=== PATIENT | male | born 1990 | race Caucasian/White ===

== ENCOUNTER 2022-09-14 09:30 | Outpatient (RCR) | payer OTHER, SELFPAY ==
[2022-08-27 11:47] VITALS: BP 130/84; PULSE 80; RESP 14; TEMP 36.6
[2022-08-27 11:49] VITALS: BMI 33.3
--- NOTE | 2022-08-27 12:34 | HO.PS.ADMBH ---
[facility] Date of Service: 08/27/22 Chief Complaint: schizoaffective d/o Sources of Information: patient interviewed, chart reviewed and crisis/core team assessment reviewed [facility] Medical Problems Affecting Mental Status: No Narrative: Following information obtained via patient interview, initial clinician integrated assessment, and chart review. I met with patient this morning. Patient is 31-year-old single male, self-referred on advice of his therapist to [facility], due to having mood instability with mixed states, increased depression and anxiety, chronic paranoid thoughts with auditory hallucinations. Patient is well known to [facility] staff, as he has been here multiple times since age 19. Patient has treatment resistant schizoaffective disorder, has had command hallucinations in the past telling him to stop taking his medications. He describes currently experiencing a mixed episode, feeling slightly manic. Reports that he recently stopped taking olanzapine, as he was concerned about weight gain. He states that since this time his symptoms have worsened, with increased paranoia, auditory hallucinations, believing people are talking about him, racing thoughts, poor sleep. Denies any SI, HI, reports feeling safe. Patient reports he also terminated his relationship with his psychiatrist at [facility], and has an upcoming appointment next week scheduled with a new psychiatrist through [facility]. Patient has a history of non adherence to medications, with subsequent decompensation, which has led to multiple hospitalizations. Three or 4 years ago he became acutely psychotic, and was hospitalized at [place] for 4 months, and [facility] for 6 months. He then resided in a long-term in [place] for 3 years. In spring of this year, he decided he no longer wanted to live in a long-term, and that he wanted to be more independent, and get a job. He moved to his grandparents residence in [place]. His grandparents have declining health, and they require care, which he helps his mother to provide at times. He was offered VNA services for medication management upon discharge from the long-term, which he declined. He has struggled to maintain current medication regimen. He states that several weeks ago he was feeling manic, and went [place] late at night, and got into a stranger's car. He states that he also relapsed briefly with alcohol after several years sobriety at that time. He is deeply concerned, and he states that he wants to get help now before he continues to decline, as he wants to avoid inpatient hospitalization. Past Psychiatric History: Medication trials: Multiple medications trials, including claws a real, Geodon, propanolol, olanzapine, perphenazine, lithium. Patient has [facility] case monitor, Rema Anderson. Multiple hospitalizations, respite, [facility], sober house, long-term. Has upcoming appointment with new psychiatric provider 09/02/22 at [facility] Castillo, Donna Regalado CNP, at [facility]. Therapist: Marion Mcnally [facility] Medical Evaluation Reviewed: Yes [facility] Medical History No known health problems Family History: Mother and maternal grandmother: History of depression. Father: Anxiety Grandmother: Parkinson's Grandfather: Dementia Social History: Raised by both parents. Has several older siblings. Graduated high school, 1 year college. Currently resides with grandparents, has frequent contact with mother. Unemployed Has [facility] case involvement. Substance History: Alcohol, methamphetamine, LSD since college. Has been sober for several years, recent relapse of 1 drink several weeks ago. Attends , has a sponsor. Nicotine use, former 2 pack per day smoker, has weaned down to current 1 pack per day. Diagnostics Vital Signs (24Hr): Vital Signs - 24 hr 08/27/22 11:47 Temperature 97.8 F Pulse Rate 80 Respiratory Rate 14 Blood Pressure 130/84 BMI result Body Mass Index 33.3 Meds/Allergies Meds Home Medications Medication Instructions Recorded Confirmed Type aripiprazole 30 mg tablet 30 mg PO DAILY 08/27/22 08/27/22 History benztropine 1 mg tablet 1 mg PO BID 08/27/22 08/27/22 History clonazepam 1 mg tablet 1 mg PO TID 08/27/22 08/27/22 History fluoxetine 40 mg capsule 40 mg PO DAILY 08/27/22 08/27/22 History lurasidone 120 mg tablet (Latuda) 120 mg PO DAILY 08/27/22 08/27/22 History Allergies Allergies Allergy/AdvReac Type Severity Reaction Status Date / Time quetiapine [From SEROQUEL] Allergy Unknown throat Verified 08/27/22 11:47 closes per patient Mental Status Exam Mental Status Exam Narrative: Well-developed, well-nourished male, in NAD. Restless, anxious, expansive mood and affect. No SI, reports AH, paranoia that others are talking about him in a derogatory manner. Patient Appearance: Appropriate Patient Orientation: Person, Place, Time and Situation Level of Consciousness: Appropriate and Restless Patient Behavior: Appropriate, Cooperative and Good Eye Contact Mood Description: Anxious and Apprehensive Affect Description: Anxious and Apprehensive Patient Cognition Impaired: No Ability to Follow Directions: Good Speech Pattern: Clear and Appropriate Memory Description: Intact Hallucinations: Auditory Delusions: Paranoid Ideation (Believes people are talking about him, mentions people in this office, & in group.) Thought Process: Racing and Distracted Thought Content: positive for Racing and positive for Obsessional Thoughts (Obsessive thoughts regarding medication use and weight gain.) Depressive Symptoms: Increased Anxiety, Increased Irritability, Difficulty Sleeping, Loss of Int. in Activity, Hopelessness, Unhappiness, Increased Fatigue and Difficulty Concentrating Abnormal Motor Activity Signs and Symptoms: Restlessness Judgement: Fair Assessment & Plan Assessment & Plan (1) Schizoaffective disorder, bipolar type: Status: Acute Code(s): F25.0 - Schizoaffective disorder, bipolar type Assessment and Plan: Patient is self-referred to program due to decompensation, increased paranoia, auditory hallucinations, feeling manic. Patient reports recently he stopped taking his olanzapine, for fear of gaining weight. Since that time he has noticed an increase in symptoms. Patient also terminated relationship with prescriber through [facility], and has an upcoming appointment with provider through [facility] in [place]. Patient was cooperative, able to clearly state his concerns. Stated several times ?I can not end up back in the [facility] ?. Reports difficulty falling asleep. Had refused VNA services when he left his long-term residence in spring. Had recently relapsed with 1 drink after long-term sobriety with alcohol. Has maintained sobriety since that 1 drink. He would like to participate in the COD groups while here. Patient concerned, as he wishes to restart a medication in order to prevent further decompensation, which inevitably would leave to hospitalization, as it has multiple times in the past. Reports he had taken Haldol in past with positive affect. Recently had a short-term script for Haldol 5 mg b.i.d.. States that he has taken larger amounts of Haldol, including 10 mg t.i.d.. Is willing to try Haldol 5 mg t.i.d. at this time in addition to his several other antipsychotic medications. Patient reports that he feels safe at this time, no SI. He does acknowledge auditory hallucinations, along with paranoid thoughts that others are talking about him. Reports that when he was walking during morning break from program, people in the parking lot were talking and he thought they were speaking about him, how ?he is a sick jazmin ?. We discussed safety measures, including a potential crisis eval if he further decompensates, which she was agreeable to. He also has crisis phone number readily available, and states that he will call if needed. Discussed importance of taking prescribed medications daily, using and medication reminder, and VNA referral to assist with medication management. He stated he will think about of visiting nurse, but does not want to commit at this time. (2) Alcohol dependence, uncomplicated: Status: Acute Code(s): F10.20 - Alcohol dependence, uncomplicated Plan 1. Continue with current [facility] plan of care. 2. Start Haldol 5 mg t.i.d.. 3. Continue with other medications as currently prescribed by outpatient providers. 4. Follow-up as per protocol. Patient educated on: diagnosis, medication risk/benefits, substance abuse and therapeutic strategies Informed Consent: understands Reason for continued partial hosp. stay Substantial Risk for: harm to self, harm to others, inability to function, rapid decompensation and med/psych decompensation Certification I certify that partial hospital treatment is medically necessary due to the symptoms and problems resulting from the patient's mental illness and the failure to treat the patient at the partial hospital level of care would likely result in the patient requiring inpatient psychiatric care which could not be prevented at a less intensive level of care.
--- NOTE | 2022-08-27 12:50 | PC.ADMIT ---
Admit to [facility] on 08/27/2022. Patient self referred related to increased elena, mood instability both anxiety and depression, paranoid thoughts and auditory hallucinations. Patient reports he hears voices laughing at him denies command hallucinations. Patient is 31 years old, single lives with grandparents. Patient dx is Schizoaffective disorder with first episode at age 20 during his freshman year at college. Four years ago patient had a major psychotic episode and was inpatient at [facility] for 4 months and [facility] for 6 months. Patient then was sent to live in a [facility] psychiatric usp where he lived for 3 years. Patient recently stopped Zyprexa himself due to weight gain which he attributes to the medication. Patient seen by [facility] OPERATOR HELPER today for medication appointment. Patient was started on Haldol 5mg oral 3x daily x one week. Patient currently takes Cogentin scheduled daily. Patient will be scheduled a f/u medication appointment to evaluate compliance with scheduled Haldol and effectiveness. Med teaching done on use, dose, frequency, side effects when stopping medications by self. Patient states understanding. Patient cooperative during nursing assessment, stated he was tired, denied AH during nursing visit. Responses delayed at times during visit. Patient reports anxiety and depression, states no SI no plan, no intent. Patient denies substance use. Patient used methamphetamine intermittently in college, denies use since college. Patient has history of alcohol abuse. Patient reports he has been sober for one year with one relapse of one drink a couple weeks ago. Patient goes to AA meetings. Patient denies SI with no plan and no intent, denies he would harm himself or anyone else. Patient will leave program before the 1pm meeting due to fatigue. Medication reconciliation done with patient and pharmacy. + Admission to [facility] on 08/27/2022. Patient self referred d
--- NOTE | 2022-09-01 13:48 | HO.PHPPROGNO ---
Subjective Subjective Date of Service: 09/01/22 Reason For Visit: schizoaffective d/o Medical Problems Affecting Mental Status: No Interim History: Reports continued, increased paranoia, believing 'everyone is talking about me Increased AH, describes as 'scary, shuffling upstairs, a very very deep voice Denies SI/HI, says feels safe Grandfather hospitalized, going to hospice. Patient describes increased stress. r/t this Reports haldol 5mg TID was not effective in sx management Took olanzapine 20mg last evening after stopping it 3 to 4 weeks ago, with some effect. Binged ate last night, says related to the olanzapine Medication Compliance: Intermittent Side effects from medications: Yes (Reports binge eating with olanzapine) Attending Groups: Yes Review of Systems Acute medical concerns: No Medical Review of Systems: unchanged Review of Systems Review of Systems Yes all other systems are reviewed and are negative Constitutional: Reports no additional constitutional complaints Diagnostics Vital Signs (24Hr): BMI result Body Mass Index 33.3 Assessment & Plan Assessment & Plan (1) Schizoaffective disorder, bipolar type: Status: Acute Code(s): F25.0 - Schizoaffective disorder, bipolar type Assessment and Plan: Reports continued, increased paranoia, believing 'everyone is talking about me . Eight she is afraid to walk out of his house, as he believes the neighbor is calling him names. Increased AH, describes as 'scary, shuffling upstairs, a very very deep voice . States they are not command in nature. Denies SI/HI, says feels safe. Patient encouraged to notify us if that some point he feels unsafe, and to utilize crisis number. Grandfather hospitalized, going to hospice. Patient describes increased stress r/t this. Reports haldol 5mg TID was not effective in sx management. States that when he previously had been taking Haldol 10 mg t.i.d., he felt his auditory hallucinations and paranoia were much better managed. Took olanzapine 20mg last evening after stopping it 3 to 4 weeks ago, with some effect. Reports that he feels a little better this morning, but that he is extremely concerned about the weight gain of olanzapine and does wish to continue. Binged ate last night, says related to the olanzapine. Patient has an appointment tomorrow with new outpatient psychiatrist. We discussed in the meantime of stopping olanzapine altogether, and continue with Haldol, increased dose of 10 mg t.i.d.. One-week supply sent to pharmacy. Patient already receives Latuda and Abilify daily. We discussed considering long-acting injectables for at least 1 of the antipsychotics, as it may help keep a steady level in his blood stream. He stated he would think about this. Discussed medication adherence. Patient states he is taking all medications as currently prescribed. Patient reports increased anxiety, requests increased dose of Klonopin. Reports he has been on the same dose of Klonopin for the past 3 years. Patient was advised to take Klonopin as directed, with the addition today of 1 mg as a p.r.n.. He also was encouraged to discuss this when he meets new psychiatrist tomorrow. (2) Alcohol dependence, uncomplicated: Status: Acute Code(s): F10.20 - Alcohol dependence, uncomplicated Assessment and Plan: Remains abstinent from alcohol, no concerns at this time. Has support network in place. Plan 1. Continue with current [facility] plan of care. 2. Patient agreeable to not take olanzapine, as he will be given script today for Haldol. 3. Haldol increased to 10 mg t.i.d., 1 week supply sent. 4. Patient to utilize 1 mg Klonopin as a p.r.n. for today, and to discuss further with his outpatient psychiatrist, home he will meet for the 1st time tomorrow. 5. Follow-up as per protocol. Patient educated on: diagnosis, medication risk/benefits and therapeutic strategies Informed Consent: understands Reason for contiued partial hosp. stay Substantial Risk for: inability to function, rapid decompensation and med/psych decompensation Certification I certify that partial hospital treatment is medically necessary due to the symptoms and problems resulting from the patient's mental illness and the failure to treat the patient at the partial hospital level of care would likely result in the patient requiring inpatient psychiatric care which could not be prevented at a less intensive level of care. I spent minutes with the patient and/or on the patient floor today, greater than?50% of which was spent counseling/coordinating care. Discharge Plan Discharge Attending provider: Yair Serrano Medications: New haloperidol 10 mg tablet 10 mg PO TID Qty: 21 0RF Discontinued haloperidol [Haldol] 5 mg Tablet 5 mg PO BID No Action clonazepam 1 mg Tablet 1 mg PO TID benztropine [Cogentin] 1 mg Tablet 1 mg PO BID Latuda 120 mg Tablet 120 mg PO DAILY Rx Instructions: must administer with food (at least 350 calories) aripiprazole 30 mg Tablet 30 mg PO DAILY fluoxetine 40 mg Capsule 40 mg PO DAILY
--- NOTE | 2022-09-02 14:16 | PC.NURSE ---
Case opened in treatment team
--- NOTE | 2022-09-03 09:23 | PC.NURSE ---
I spoke with the client this morning he states that he couldn't attend due to stomach issues. He states that he will be in on Tuesday.
--- NOTE | 2022-09-06 15:21 | P.PNPSP_ITS ---
Subjective Subjective Date of Service: 09/06/22 Reason For Visit: schizoaffective d/o Medical Problems Affecting Mental Status: No Interim History: Reports mood has had high highs, low lows . Says anxious. Believes mood lability is related to stopping olanzapine. Haldol has helped with voices, but would like to return to olanzapine, asking for Lybalvi. No SI/HI, no safety concerns Cont with AH, but more managable. Medication Compliance: Intermittent Side effects from medications: No Attending Groups: Yes Review of Systems Acute medical concerns: No Medical Review of Systems: unchanged Review of Systems Review of Systems Yes all other systems are reviewed and are negative Constitutional: Reports no additional constitutional complaints Mental Status Exam Mental Status Exam Narrative: NAD. Patient Appearance: Appropriate Patient Orientation: Person, Place, Time and Situation Level of Consciousness: Appropriate and Restless Patient Behavior: Appropriate, Cooperative and Good Eye Contact Mood Description: Anxious, Labile and Apprehensive Affect Description: Anxious Patient Cognition Impaired: No Ability to Follow Directions: Good Speech Pattern: Clear and Appropriate Memory Description: Intact Hallucinations: Auditory Delusions: Paranoid Ideation (Believes people are talking about him) Thought Process: Racing and Distracted Thought Content: positive for Racing and positive for Obsessional Thoughts (Obsessive thoughts regarding medication use and weight gain.) Depressive Symptoms: Increased Anxiety, Increased Irritability, Difficulty Sleeping, Loss of Int. in Activity, Hopelessness, Unhappiness, Increased Fatigue and Difficulty Concentrating Abnormal Motor Activity Signs and Symptoms: Restlessness Judgement: Fair Diagnostics Vital Signs (24Hr): BMI result Body Mass Index 33.3 Assessment & Plan Assessment & Plan (1) Schizoaffective disorder, bipolar type: Status: Acute Code(s): F25.0 - Schizoaffective disorder, bipolar type Assessment and Plan: Patient reports increased mood lability. Reports he realizes now that he does need olanzapine, even though he does not like the weight gain. Has taken Lybalvi in the past, and would like to take this in place of the Haldol. A med history search reveals he had taken lobe all the several months ago. Reports that Haldol has been helpful regarding auditory hallucinations, but would like to stop it and switch back over to Lybalvi. Education discussed, including benefits verses disadvantages, side effects, alternatives to milana tment. No SI, no safety concerns. Appointment with new provider has been rescheduled, appointment with new psychiatrist is September 16 at 09:00. Has been taking only scheduled Klonopin. Patient has been advised he could take 1 extra dose 1 day only by this group underwriter, patient was reminded that this is not a permanent order but was only a 1 day order. He states he understands. Patient reports he has been finding it difficult to stay in [facility] throughout day, gets restless and anxious towards end of group. Has also been trying to stop smoking nicotine. Has used medications such as Nicorette gum, Nicoderm patch. Not interested at this time in nicotine replacement therapy (2) Alcohol dependence, uncomplicated: Status: Acute Code(s): F10.20 - Alcohol dependence, uncomplicated Assessment and Plan: Patient remains abstinent from alcohol. Utilizing 12 step program, has a sponsor. Attending online zoom meetings. Plan 1. Continue with current [facility] plan of care. 2. Discontinue Haldol. 3. Start Lybalvi 10-10 daily. 4. Follow-up as per protocol. Patient educated on: diagnosis, medication risk/benefits, substance abuse and therapeutic strategies Informed Consent: understands Reason for contiued partial hosp. stay Substantial Risk for: inability to function, rapid decompensation and med/psych decompensation Certification I certify that partial hospital treatment is medically necessary due to the symptoms and problems resulting from the patient's mental illness and the failure to treat the patient at the partial hospital level of care would likely result in the patient requiring inpatient psychiatric care which could not be prevented at a less intensive level of care. I spent minutes with the patient and/or on the patient floor today, greater than?50% of which was spent counseling/coordinating care. Discharge Plan Discharge Attending provider: Yair Serrano Additional Instructions: Marion Mcnally [facility] Medications: New Lybalvi 10-10 mg tablet 1 tab PO DAILY Qty: 30 0RF Discontinued haloperidol [Haldol] 5 mg Tablet 5 mg PO BID No Action clonazepam 1 mg Tablet 1 mg PO TID benztropine [Cogentin] 1 mg Tablet 1 mg PO BID Latuda 120 mg Tablet 120 mg PO DAILY Rx Instructions: must administer with food (at least 350 calories) aripiprazole 30 mg Tablet 30 mg PO DAILY fluoxetine 40 mg Capsule 40 mg PO DAILY Stand Alone Forms: Patient Portal Discharge page
--- NOTE | 2022-09-08 15:50 | PC.NURSE ---
Ori called and stated he went to [facility] and he was struggling with AH as there was a crowd of people in the store. Patient wanted Lybalvi increased from 10-10 to 10-20 mg as it has helped with AH. Stated he has been on 10-20 in the past. I told him I would speak to the provider. I called patient back and told him I did not speak to the provider as of yet and asked if he would like to see the provider tomorrow morning and he agreed. I asked Herbie if he had thoughts to harm himself or anyone else and he stated he did not. He stated he was safe. Plans on playing video games for the remainder of the night and going to bed early. Stated the AH are better when he is not in a crowded area. Jonelle Fajardo NP aware.
--- NOTE | 2022-09-08 16:03 | PC.NURSE ---
Prescriber Jonelle Fajardo NP notifed me and stated patient can stop the Lybalvi and take 20 mg of Zyprexa daily which he was originally on. Called patient to update him however he did not answer his phone. Will have patient see prescriber in the morning.
--- NOTE | 2022-09-09 08:42 | P.PNPSP_ITS ---
Subjective Subjective Date of Service: 09/09/22 Reason For Visit: schizoaffective d/o Interim History: Spoke with patient on phone. He reports increased paranoia, increased auditory hallucinations. Medication Compliance: Intermittent Side effects from medications: No Attending Groups: Yes Review of Systems Acute medical concerns: No Medical Review of Systems: unchanged Mental Status Exam Mental Status Exam Narrative: Spoke with patient on phone. No SI. Mood Description: Anxious Ability to Follow Directions: Good Speech Pattern: Clear and Appropriate Hallucinations: Auditory Delusions: Paranoid Ideation Depressive Symptoms: Increased Anxiety Judgement: Fair Diagnostics Vital Signs (24Hr): BMI result Body Mass Index 33.3 Assessment & Plan Assessment & Plan (1) Schizoaffective disorder, bipolar type: Status: Acute Code(s): F25.0 - Schizoaffective disorder, bipolar type Assessment and Plan: patient reports escalated paranoia and auditory hallucinations. Too paranoid at this time to come to group. He sees new psychiatrist in one week. No SI, feels safe. Med changed back to olanzapine 20mg. Plan 1. Patient to stop the olanzapine-samidorphan 10-10mg. 2. Resume the olanzapine 20mg daily. 3. Continue all other medications as currently prescribed. 4. Patient to return to program tomorrow. Patient educated on: diagnosis, medication risk/benefits and therapeutic strategies Informed Consent: understands Reason for contiued partial hosp. stay Substantial Risk for: inability to function, rapid decompensation and med/psych decompensation Certification I certify that partial hospital treatment is medically necessary due to the symptoms and problems resulting from the patient's mental illness and the failure to treat the patient at the partial hospital level of care would likely result in the patient requiring inpatient psychiatric care which could not be prevented at a less intensive level of care. I spent minutes with the patient and/or on the patient floor today, greater than?50% of which was spent counseling/coordinating care. Discharge Plan Discharge Attending provider: Yair Serrano Additional Instructions: Marion Mcnally [facility] Medications: New Lybalvi 10-10 mg tablet 1 tab PO DAILY Qty: 30 0RF Discontinued haloperidol [Haldol] 5 mg Tablet 5 mg PO BID No Action clonazepam 1 mg Tablet 1 mg PO TID benztropine [Cogentin] 1 mg Tablet 1 mg PO BID Latuda 120 mg Tablet 120 mg PO DAILY Rx Instructions: must administer with food (at least 350 calories) aripiprazole 30 mg Tablet 30 mg PO DAILY fluoxetine 40 mg Capsule 40 mg PO DAILY Stand Alone Forms: Patient Portal Discharge page Telehealth Telehealth Location of provider rendering services: practice address Location of patient: address on file Patient Identification confirmed using: Name, : Yes Telehealth method: voice only Patient verbally consented to treatment: Yes Patient verbally consented to billing insurance company: Yes Patient informed of any privacy concerns related to visit: Yes Minutes spent on Phone/Video with Pt.: 10
--- NOTE | 2022-09-10 08:17 | PC.NURSE ---
Patient called and left a voicemail stating he started Zyprexa last night and is waiting for it to get into his system. Plans on staying with his grandmother all day today and come in on Tuesday. PHP team is aware.
--- NOTE | 2022-09-10 08:38 | HO.PHPIOP ---
Ori called out. He is experiencing symptoms, he just took his medication . He will be here Tuesday.
--- NOTE | 2022-09-14 12:19 | HO.PHPPROGNO ---
Subjective Subjective Date of Service: 09/14/22 Reason For Visit: schizoaffective d/o Medical Problems Affecting Mental Status: No Medication Compliance: Intermittent Side effects from medications: No Attending Groups: Yes Review of Systems Acute medical concerns: No Medical Review of Systems: unchanged Review of Systems Review of Systems Yes all other systems are reviewed and are negative Constitutional: Reports no additional constitutional complaints Mental Status Exam Mental Status Exam Narrative: NAD. Normal gait, posture. No tics/tremors. No EPS noted. Patient Appearance: Appropriate Patient Orientation: Person, Place, Time and Situation Level of Consciousness: Appropriate Patient Behavior: Appropriate and Cooperative Mood Description: Anxious Affect Description: Anxious Ability to Follow Directions: Good Speech Pattern: Clear and Appropriate Memory Description: Intact Hallucinations: Auditory ( a deep man's voice ) Delusions: Paranoid Ideation (others are talking aobut him) Perceptual Disturbances: Hallucinations Thought Process: Intact Thought Content: positive for Obsessional Thoughts and positive for Preoccupation Depressive Symptoms: Increased Anxiety Judgement: Fair Diagnostics Vital Signs (24Hr): BMI result Body Mass Index 33.3 Assessment & Plan Assessment & Plan (1) Schizoaffective disorder, bipolar type: Status: Acute Code(s): F25.0 - Schizoaffective disorder, bipolar type Assessment and Plan: Patient reports he is anxious, has been struggling with increased auditory hallucinations, paranoia. Began taking old supply haldol at home, in addition to the other antipsychotics, as he states it helps manage the anxiety/hallucinations. Denies any EPS, none noted. Denies VH, SI, HI. Says feels safe. Discussed patient going to inpatient level of care for medication adjustment, he was not in agreement. He was hospitalized for 10 months in past, and says it traumatized him. He again states he is in no danger of harm to self or others. Discussed polypharmacy, as he has been taking 4 antipsychotics. He denies any s/e. He says he does not find the abilify or the latuda to be helpful, and plans to ask for these to be stopped when he meets with new psychiatrist in 2 days, on . Discussed use of long-acting injectable antipsychotics, as patient has difficulty with medication adherance, and has done well with [facility] in the past. He states he is not interested at this time. He reports today is last day, as he is finding the groups to be too anxiety provoking. He is asking for short script of haldol, as he took last one yesterday. He says he continues to live with grandparents, and has daily contact (throughout day) with his mother. He says his mother and he have been talking about his meds, and both agree that he has done his best with olanzapine/haldol combination. He is agreeable to seek crisis eval if needed, and to seek medical attention if any type of dystonic rx. He denies any such sx in his past. (2) Alcohol dependence, uncomplicated: Status: Acute Code(s): F10.20 - Alcohol dependence, uncomplicated Assessment and Plan: Abstinent, active in 12-step program. Plan 1. Patient to d/c today, and has appt scheduled in 2 days with new psychiatrist. 2. Haldol 10mg BID (total 5 tabs) script sent to pharmacy. 3. Patient to follow-up with outpatient psyciatrist going forward. Patient educated on: diagnosis, medication risk/benefits, substance abuse and therapeutic strategies Informed Consent: understands Reason for contiued partial hosp. stay Substantial Risk for: inability to function and stable for discharge Certification I certify that partial hospital treatment is medically necessary due to the symptoms and problems resulting from the patient's mental illness and the failure to treat the patient at the partial hospital level of care would likely result in the patient requiring inpatient psychiatric care which could not be prevented at a less intensive level of care. I spent minutes with the patient and/or on the patient floor today, greater than?50% of which was spent counseling/coordinating care. Discharge Plan Discharge Attending provider: Yair Serrano Additional Instructions: Marion Mcnally [facility] Medications: New haloperidol 10 mg tablet 10 mg PO BID Qty: 5 0RF Discontinued haloperidol [Haldol] 5 mg Tablet 5 mg PO BID No Action clonazepam 1 mg Tablet 1 mg PO TID benztropine [Cogentin] 1 mg Tablet 1 mg PO BID Latuda 120 mg Tablet 120 mg PO DAILY Rx Instructions: must administer with food (at least 350 calories) aripiprazole 30 mg Tablet 30 mg PO DAILY fluoxetine 40 mg Capsule 40 mg PO DAILY olanzapine [Zyprexa] 20 mg Tablet 20 mg PO BEDTIME Label Comments: Confirmed with Jonelle Coombs CNP and patient 09/14/22. Stand Alone Forms: Patient Portal Discharge page Patient Education: Schizoaffective Disorder (DC)
--- NOTE | 2022-09-14 13:20 | HO.PHPIOP ---
I spoke with the client this morning about his absences from the program attended 5 of 11 schedules days , most half day. He states that it feels too overwhelming to be in the group and his paranoid symptoms increase. he states that he would prefer to see his individual therapist and attend AA online. He states he has an appointment scheduled with a new prescriber at [facility].
--- NOTE | 2022-09-14 13:27 | HO.PHPIOP ---
I called and left a message for the client to call back re confirm his appointment with Dr Donna Velez
--- NOTE | 2022-09-14 13:59 | HO.PHPIOP ---
I called and left a message for Marion CABELLO re Cabral inability to tolerate groups, and his discharge from the program. I mentioned that Ori would benefit from twice weekly sessions.
== END 2022-09-14 23:59 | disposition home or self-care (01) ==
LOC: HO.PHPA 09:30
PROVIDERS: Visit Provider Psychiatry & Neurology Psychiatry
DX: F25.0 Schizoaffective disorder, bipolar type (principal); F10.20 Alcohol dependence, uncomplicated
CPT/HCPCS: 90792; 90853

== ENCOUNTER 2023-01-30 17:10 | Inpatient (IN) | payer OTHER, SELFPAY ==
[2023-01-30 17:17] VITALS: BP 138/72; PULSE 115; RESP 18; TEMP 37.2; O2SAT 97; BMI 39.1
--- NOTE | 2023-01-30 17:17 | ED_ITS ---
HPI - Psych General Chief Complaint: Psychiatric Symptoms <DEYSI Cohen - Last Filed: 01/30/23 17:24> Stated Complaint: SI/deprerssed <DEYSI Cohen - Last Filed: 01/30/23 17:24> Time Seen by Provider: 01/30/23 17:33 <DEYSI Cohen - Last Filed: 01/30/23 17:24> Source: patient <Melissa Perkins MD - Last Filed: 01/30/23 17:43> Mode of arrival: ambulatory <Melissa Perkins MD - Last Filed: 01/30/23 17:43> Limitations: no limitations <Melissa Perkins MD - Last Filed: 01/30/23 17:43> History of Present Illness HPI Narrative: 32 y/o with history of schizoaffective disorder, bipolar type presents to the ER with worsening depression and suicidal ideation with plan to kill himself with a razor blade after drinking a large amount of booze. He did drink 1/2 pint today to get enough courage to do it. Has been sober for a while until today. No illicit drugs but admits to taking extra Klonpoin today. His psychiatrist is titrating his Clozaril and Lamictal but mom reports he is not being monitoring appropriately. He has been calling crisis without any effect. Last hospitalized at [facility] about a month ago and was taken off of multiple of his medications that he had been on for years (prozac and lamictal). <Melissa Perkins MD - Last Filed: 01/30/23 17:43> Related Data Home Medications: Home Medications Medication Instructions Recorded Confirmed aripiprazole 30 mg tablet 30 mg PO DAILY 08/27/22 08/27/22 benztropine 1 mg tablet 1 mg PO BID 08/27/22 08/27/22 clonazepam 1 mg tablet 1 mg PO TID 08/27/22 08/27/22 fluoxetine 40 mg capsule 40 mg PO DAILY 08/27/22 08/27/22 lurasidone 120 mg tablet (Latuda) 120 mg PO DAILY 08/27/22 08/27/22 olanzapine 20 mg tablet (Zyprexa) 20 mg PO BEDTIME 09/14/22 09/14/22 Previous Rx's Medication Instructions Recorded haloperidol 10 mg tablet 10 mg PO BID #5 tabs 09/14/22 <DEYSI Cohen - Last Filed: 01/30/23 17:24> Allergies/Adverse Reactions: Allergies Allergy/AdvReac Type Severity Reaction Status Date / Time quetiapine [From SEROQUEL] Allergy Unknown throat Verified 08/27/22 11:47 closes per patient <DEYSI Cohen - Last Filed: 01/30/23 17:24> Review of Systems Review of Systems: All other systems are reviewed and are negative Constitutional: Reports as per HPI and Reports no additional constitutional complaints Eyes: Reports as per HPI and Reports no additional eye complaints Reports system reviewed and no additional complaints, except as documented Cardiovascular: Reports as per HPI and Reports no additional cardiovascular complaints Respiratory: Reports as per HPI and Reports no additional respiratory complaints Gastrointestinal: Reports as per HPI and Reports no additional gastrointestinal complaints Genitourinary: Reports no additional female genitourinary complaints Musculoskeletal: Reports no additional musculoskeletal complaints Skin/Breast: Reports system reviewed and no additional complaints, except as docu Psychiatric: Reports no additional psychiatric complaints Endocrine: Reports no additional endocrine complaints Hematologic/Lymphatic: Reports no additional hematologic/lymphatic complaints Allergic/Immunologic: Reports no additional allergic/immunologic complaints Reports system reviewed and no additional complaints, except as documented and Reports Abnormal speech present <Melissa Perkins MD - Last Filed: 01/30/23 17:43> [facility] Past Medical History Medical History: Medical History No known health problems <DEYSI Cohen - Last Filed: 01/30/23 17:24> Social History Social History: Social History Household Members: Family Household Members Other:: Ori is living with his grandparents Patient Tobacco Use Status: Current everyday Tobacco user Tobacco use type: Cigarette Cigarette Packs Per Day: 1 Cigarettes Per Day: 20 Years Smoked: 15 <DEYSI Cohen - Last Filed: 01/30/23 17:24> Physical Exam Vital Signs: Vital Signs: Last Vital Signs Temp 98.9 F 01/30/23 17:17 Pulse 115 H 01/30/23 17:17 Resp 18 01/30/23 17:17 BP 138/72 01/30/23 17:17 Pulse Ox 97 01/30/23 17:17 O2 Del Method 01/30/23 17:17 BMI result Body Mass Index 39.1 <DEYSI Cohen - Last Filed: 01/30/23 17:24> Vital Signs: Last Vital Signs Temp 98.9 F 01/30/23 17:17 Pulse 115 H 01/30/23 17:17 Resp 18 01/30/23 17:17 BP 138/72 01/30/23 17:17 Pulse Ox 97 01/30/23 17:17 O2 Del Method 01/30/23 17:17 BMI result Body Mass Index 39.1 Vital signs have been reviewed as appeared to be correct. Blood pressure normal. Heart rate normal. Respiration rate normal. Temperature normal. Oxygen saturation normal. <Melissa Perkins MD - Last Filed: 01/30/23 17:43> Appearance: Alert. Oriented X3. No acute distress. Head: Normal external exam. Normocephalic. Atraumatic. No Marie signs noted. No raccoon eyes noted Eyes: PERRLA. EOMI. Conjunctiva and sclera normal. Eyelids normal. ENT: TM's Normal. Pharynx normal. Uvula midline. Moist mucous membranes. No trismus noted. No drooling noted. No muffled voice noted. Neck: Normal inspection. Neck supple. FROM. No adenopathy. Thyroid Normal. No meningeal signs. No neck mass noted. CVS: Normal heart rate and rhythm. Heart sound normal. No murmurs noted. Pulses normal throughout. Respiratory: No respiratory distress. Painless inspiration. Breath sounds normal. No wheezes/rales/rhonchi noted. Chest nontender. No accessory muscle usage noted or decreased air movement noted. Abdomen: Soft and nontender. Bowel sounds normal in all 4 quadrants. No distention noted. No organomegaly noted. No visible injury noted. Back: No CVA tenderness. Full range of motion noted. Skin: Skin warm and dry. Normal skin color. Normal skin turgor. No rashes/lesions/lacerations noted. Extremities: No lower extremity edema. Extremities exhibit normal range of motion. Extremities nontender. Neuro: Oriented X 3. Cranial nerve exam: II-XII are grossly intact No motor deficit. No sensory deficit. Reflexes normal. Patient Orientation: Person, Place, Time and Situation, okay hygiene and grooming. Fair eye contact, attentive, no tics or tremors. Level of Consciousness: Awake, Appropriate and Alert Patient Behavior: Appropriate, Guarded, Cooperative and Anxious Mood Description: Constricted, Blunted and Apprehensive Affect Description: Constricted, Blunted and Apprehensive Patient Cognition Impaired: No Ability to Follow Directions: Excellent Speech Pattern: Clear, Appropriate and Spontaneous Speech, nonpressured, spontaneous with regular rate and rhythm, normal volume and prosody. No dysarthria. Memory Description: Intact, Immediate Intact and Short Term Intact Hallucinations: None Delusions: Not Present Thought Process: Intact Thought Content: positive for Intact, positive for Logical, states Suicidal Ideation using a razor blade to cut himself patient drink vodka earlier to Courage himself to do, denies Homicidal Ideation. Depressive Symptoms: Not present. Judgement and Insight: Limited but adequate. <Meilssa Perkins MD - Last Filed: 01/30/23 17:43> Course Course Course Narrative: RME - 32 y/o with history of schizoaffective disorder, bipolar type presents to the ER with worsening depression and suicidal ideation with plan to kill himself with a razor blade after drinking a large amount of booze. He did drink 1/2 pint today to get enough courage to do it. Has been sober for a while until today. No illicit drugs but admits to taking extra Klonpoin today. His psychiatrist is titrating his Clozaril and Lamictal but mom reports he is not being monitoring appropriately. He has been calling crisis without any effect. Last hospitalized at [facility] about a month ago and was taken off of multiple of his medications that he had been on for years (prozac and lamictal). Plan: medical clearance labs and CARE team evaluation <DEYSI Cohen - Last Filed: 01/30/23 17:24> Major depression with SI and auditory hallucination awaiting for care team evaluation and disposition. <Melissa Perkins MD - Last Filed: 01/30/23 17:43> Medical Decision Making Differential Diagnosis Differential Diagnoses: The differential diagnosis associated with the presentation includes (Acute psychosis, major depressive disorder with SI, auditory hallucination, metabolic disorder) <Melissa Perkins MD - Last Filed: 01/30/23 17:43> Discharge Plan Discharge Clinical Impression: Schizoaffective disorder, bipolar type, Suicidal ideation, Depression <DEYSI Cohen - Last Filed: 01/30/23 17:24> Patient Disposition: Still a Patient <DEYSI Cohen - Last Filed: 01/30/23 17:24> Prescriptions: No Action clonazepam 1 mg Tablet 1 mg PO TID benztropine [Cogentin] 1 mg Tablet 1 mg PO BID Latuda 120 mg Tablet 120 mg PO DAILY Rx Instructions: must administer with food (at least 350 calories) aripiprazole 30 mg Tablet 30 mg PO DAILY fluoxetine 40 mg Capsule 40 mg PO DAILY haloperidol 10 mg tablet 10 mg PO BID Qty: 5 0RF olanzapine [Zyprexa] 20 mg Tablet 20 mg PO BEDTIME Label Comments: Confirmed with Jonelle Coombs CNP and patient 09/14/22. <DEYSI Cohen - Last Filed: 01/30/23 17:24>
--- NOTE | 2023-01-30 17:20 | ECG_ITS ---
Test Reason : TACHYCARDIA Blood Pressure : / mmHG Vent. Rate : 097 BPM Atrial Rate : 097 BPM P-R Int : 172 ms QRS Dur : 098 ms QT Int : 338 ms P-R-T Axes : 058 055 042 degrees QTc Int : 429 ms Normal sinus rhythm Normal ECG When compared with ECG of 03-OCT-2017 12:22, No significant change was found Referred By: Elvira Bowden Electronically Signed By:Kurt Saleh
--- NOTE | 2023-01-30 17:26 | PC.NURSE ---
Per mom: will take phone/wallet/jacket/cigarettes home.
[2023-01-30 18:30] LABS: MANUAL DIFF FLAG NO
[2023-01-30 18:31] LABS: Basophils Absolute Auto 0.1 X10*3/uL (0.0-0.2); Basophils Percent Auto 0.6 % (0-2); Eosinophils Absolute Auto 0.2 X10*3/uL (0.0-0.4); Eosinophils Percent Auto 2.1 % (0-4); Hemoglobin 15.6 g/dl (14.0-18.0); Imm Gran Abs Auto 0.05 X10*3/uL (0.00-0.03); Imm Gran Pct Auto 0.5 % (0.0-0.4); Lymphocytes Absolute Auto 2.8 X10*3/uL (1.2-4.9); Lymphocytes Percent Auto 28.3 % (20-40); Mean Corpuscular HGB Conc 31.8 g/dl (31.0-36.0); Mean Corpuscular Hemoglobin 30.6 pg (27.0-33.0); Mean Corpuscular Volume 96.1 fL (80.0-98.0); Mean Platelet Volume 11.3 fL (9.4-12.4); Monocytes Absolute Auto 0.7 X10*3/uL (0.1-1.2); Monocytes Percent Auto 7.2 % (2-11); Neutrophils Percent Auto 61.3 % (45-73); Platelet Count 182 X10*3/uL (160-400); Red Cell Distribution Width 12.9 % (11.0-16.0); White Blood Count 9.7 X10*3/uL (4.8-10.8)
[2023-01-30 18:34] LABS: Appearance Urine Clear; Color Urine Yellow; Glucose Urine UA Negative (Negative); Leukocyte Esterase Urine Negative (Negative); Nitrite Urine Negative (Negative); Specific Gravity - Urine <= 1.005 (1.005-1.025); Urine Blood Negative (Negative); Urine Ketones Negative (Negative); Urine Protein Negative (Neg-Trace)
[2023-01-30 18:41] LABS: Amphetamine Screen Urine Not Detected (Not Detect); Barbiturates, Urine Not Detected (Not Detect); Benzodiazepines Screen Urine Not Detected (Not Detect); Cannabinoid Screen Urine Not Detected (Not Detect); Cocaine Screen Urine Not Detected (Not Detect); Fentanyl, urine Not Detected (Not Detect); Opiate Screen Urine Not Detected (Not Detect); Phencyclidine Screen Urine Not Detected (Not Detect)
[2023-01-30 18:46] LABS: Alanine Aminotransferase 37 U/L (0-40); Albumin Level 3.8 g/dL (3.5-5.0); Alkaline Phosphatase 75 U/L (39-117); Anion Gap 13 (12-20); Aspartate Amino Transferase 37 U/L (5-37); Bilirubin Direct < 0.2 mg/dL (0.0-0.5); Bilirubin Total 0.2 mg/dL (0.0-1.0); Blood Urea Nitrogen 12 mg/dL (9-16); Calcium 8.7 mg/dL (8.4-10.2); Carbon Dioxide 22 mmol/L (22-29); Chloride 112 mmol/L (96-108); Estimated Glomerular Filt Rate > 60; Ethanol 78 mg/dL; Glucose Random 80 mg/dL (60-115); Potassium 4.2 mmol/L (3.3-5.1); Sodium 143 mmol/L (135-145); Total Protein 5.9 g/dL (6.5-8.0)
[2023-01-30 18:47] LABS: COVID-19 Test Negative (Negative); IDNOW Serial# 16C4AD1C
--- NOTE | 2023-01-30 20:16 | PC.NURSE ---
Mother Galina Garcia , asking to be contacted by CARE team/N to provide more information regarding Herbie's health/safety at home. Pt living with [id number] with parents checking in daily. Galina believes pt has been decompensation over the past few weeks and they are now unable to keep him safe at home. Has been in communication with crisis about partial hosp programs, mother believes pt needs in patient medication stabilization. Pt is currently titrating up psych medications, but mother believes more oversight and med changes are needed. Pt is endorsing SI thoughts with plan and means. Pt calm and cooperative in ED, ate 100% of dinner and sleeping.
--- NOTE | 2023-01-30 21:12 | PC.NURSE ---
I took over care of the pt at 21:00. Pt was changed over in the main ED and brought to Pod 8 by security and MHT. Pt is resting comfortably on the couch and was given a pitcher of ice water, per request. Pt reports still having active thoughts of hurting himself. No other complaints at this time. Currently waiting for pt to be seen by CARE team.
--- NOTE | 2023-01-31 07:22 | PC.NURSE ---
patient up-pacing the unit. gait is steady. shower supplies given. cooperative with staff at this time. will CTM
[2023-01-31] MEDS: Nicotine 21 MG PATCH.TD24 TRANSDERMA (08:40)
[2023-01-31] MEDS: Nicotine Polacrilex 2 MG GUM BUCCAL ×7 (08:40→18:25)
--- NOTE | 2023-01-31 08:56 | PC.NURSE ---
patient sitting in the common area- mom visiting.
[2023-01-31 09:03] VITALS: BP 143/86; PULSE 85; RESP 16; TEMP 37.2; O2SAT 97
--- NOTE | 2023-01-31 10:12 | PC.NURSE ---
evaluated by CARE team
--- NOTE | 2023-01-31 11:15 | PHA.MEDREC ---
Pharmacy Consult ? Medication Reconciliation Pharmacy has completed the medication reconciliation. Spoke to Nurse Juana who was working on the med [facility], confirmed that pt was recently discharged from [facility] and medications were changed (opposing some claim history). Also confirmed that clozaril dose was currently 75mg and last taken on 01/29/23 in PM.
--- NOTE | 2023-01-31 12:16 | PC.NURSE ---
Dr. Matos at the bedside
[2023-01-31] MEDS: lamoTRIgine 25 MG TABLET 150 MG PO (12:29)
[2023-01-31] MEDS: clonazePAM 1 MG TABLET PO ×3 (12:30→22:15)
--- NOTE | 2023-01-31 12:58 | P.CNPS_ITS ---
History of Present Illness Date of Service: 01/31/23 Chief Complaint: SI/deprerssed Reason for Consult: Medication assessment Sources of Information: patient interviewed, chart reviewed and crisis/core team assessment reviewed HPI Narrative: Patient is a 32-year-old male with history of schizoaffective disorder, bipolar type, alcohol use disorder in sustained remission who presents, accompanied by his mother, for worsening depression and suicidal ideation in the face of medication changes. Both patient and mother report that patient was stable for several years while living in a senior care; they are a little vague on the exact medication regimen but it sounds like patient was on Abilify, clozapine, Lamictal, Prozac, Latuda and clonazepam. Clozaril however we was stopped about a year ago. Over the past few months patient started getting depressed possibly due to psychosocial stressors and ended up being admitted to [facility] about a month ago. There, they took him off his Prozac and Lamictal and patient said his depression only worsened. Patient's outpatient provider restarted him on Lamictal and on clozapine. Patient has been living at his mother's and and despite getting back on some meds, he remained very depressed; Pt quietly got a script from PCP for Wellbutrin to use it to trigger a manic episode since he was feeling so depressed, however, he did not use it; is patient's depression worsened he started becoming suicidal saying he was going to cut his wrist; she brought him to the emergency room. Patient reports he still feeling suicidal and agrees to inpatient admission. Regarding diagnosis, patient reports auditory hallucinations independent of mood episodes Past Psychiatric History: Medication trials: Multiple medications trials, inc fransisca marte a real, Geodon, propanolol, olanzapine, perphenazine, lithium. Patient has [facility] caseworker, Rema Anderson. Multiple hospitalizations, respite, [facility], sober house, senior care. Has upcoming appointment with new psychiatric provider 09/02/22 at [facility] Donna Chong CNP, at [facility]. Therapist: Marion Mcnally [facility] Medical Evaluation Reviewed: Yes [facility] Medical History No known health problems Family History: Mother and maternal grandmother: History of depression. Father: Anxiety Grandmother: Parkinson's Grandfather: Dementia Social History: Raised by both parents. Has several older siblings. Graduated high school, 1 year college. Currently resides with grandparents, has frequent contact with mother. Unemployed Has [facility] case involvement. Substance History: History of alcohol abuse; in sustained remission Trauma History: Deferred Diagnostics Vital Signs (24Hr): Vital Signs - 24 hr 01/30/23 17:17 01/31/23 09:03 Temperature 98.9 F 98.9 F Pulse Rate 115 H 85 Respiratory Rate 18 16 Blood Pressure 138/72 143/86 H Pulse Oximetry 97 97 Oxygen Delivery Method Room Air Room Air BMI result Body Mass Index 39.1 Labs 01/30/23 18:22 01/30/23 18:22 Labs: Laboratory Results - last 48 hr 01/30/23 01/30/23 01/30/23 18:22 18:22 18:22 WBC 9.7 RBC 5.10 Hgb 15.6 Hct 49.0 MCV 96.1 MCH 30.6 MCHC 31.8 RDW 12.9 Plt Count 182 MPV 11.3 Immature Gran % (Auto) 0.5 H Neut % (Auto) 61.3 Lymph % (Auto) 28.3 [place] % (Auto) 7.2 Eos % (Auto) 2.1 Baso % (Auto) 0.6 Lymph # (Auto) 2.8 [place] # (Auto) 0.7 Eos # (Auto) 0.2 Baso # (Auto) 0.1 Abs Immat Gran (auto) 0.05 H Absolute Neuts (auto) 6.0 Absolute Nucleated RBC 0.000 Nucleated RBC % (auto) 0.0 Sodium 143 Potassium 4.2 Chloride 112 H Carbon Dioxide 22 Anion Gap 13 BUN 12 Creatinine 0.71 Estim Creat Clear Calc 197.0 Estimated GFR > 60 Random Glucose 80 Calcium 8.7 Magnesium 2.0 Total Bilirubin 0.2 Direct Bilirubin < 0.2 AST 37 ALT 37 Alkaline Phosphatase 75 Total Protein 5.9 L Albumin 3.8 Urine Color Urine Appearance Urine pH Ur Specific [place] Urine Protein Urine Glucose (UA) Urine Ketones Urine Blood Urine Nitrite Ur Leukocyte Esterase Urine Opiates Screen Urine Fentanyl Screen Ur Barbiturates Screen Ur Phencyclidine Scrn Ur Amphetamines Screen U Benzodiazepines Scrn Urine Cocaine Screen U Marijuana (THC) Screen Ethyl Alcohol 78 COVID-19 (ALISHA) Negative COVID-19 Clin Com See Note 01/30/23 01/30/23 18:22 18:22 WBC RBC Hgb Hct MCV MCH MCHC RDW Plt Count MPV Immature Gran % (Auto) Neut % (Auto) Lymph % (Auto) [place] % (Auto) Eos % (Auto) Baso % (Auto) Lymph # (Auto) [place] # (Auto) Eos # (Auto) Baso # (Auto) Abs Immat Gran (auto) Absolute Neuts (auto) Absolute Nucleated RBC Nucleated RBC % (auto) Sodium Potassium Chloride Carbon Dioxide Anion Gap BUN Creatinine Estim Creat Clear Calc Estimated GFR Random Glucose Calcium Magnesium Total Bilirubin Direct Bilirubin AST ALT Alkaline Phosphatase Total Protein Albumin Urine Color Yellow Urine Appearance Clear Urine pH 6.0 Ur Specific [place] <= 1.005 Urine Protein Negative Urine Glucose (UA) Negative Urine Ketones Negative Urine Blood Negative Urine Nitrite Negative Ur Leukocyte Esterase Negative Urine Opiates Screen Not Detected Urine Fentanyl Screen Not Detected Ur Barbiturates Screen Not Detected Ur Phencyclidine Scrn Not Detected Ur Amphetamines Screen Not Detected U Benzodiazepines Scrn Not Detected Urine Cocaine Screen Not Detected U Marijuana (THC) Screen Not Detected Ethyl Alcohol COVID-19 (ALISHA) COVID-19 Clin Com Mental Status Exam Mental Status Exam Narrative: Pt is alert and oriented; behavior is cooperative and calm; patient is not in distress; dressed in casual attire with unkempt hair, scruffy; mood is described as depressed and affect congruent, downcast; limited eye contact; Speech is a little quiet, overall normal rate and prosody and not pressured; psychomotor retardation present; thought process is organized and goal directed; Thought content is on depressed feelings, tx; otherwise pertinent to relevant topics and without any delusional content, paranoid ideations or grandiosity; positive suicidality; no HI. There is no evidence of perceptual disturbance. Patients insight and judgment are impaired Medications Medications Current Medications Clonazepam (Clonazepam 1 Mg Tablet) 1 mg PO TID OSIEL Last Admin: 01/31/23 12:30 Dose: 1 mg Clozapine (Clozapine 25 Mg Tablet) 75 mg PO BEDTIME OSIEL Lamotrigine (Lamotrigine 25 Mg Tablet) 150 mg PO DAILY OSIEL Last Admin: 01/31/23 12:29 Dose: 150 mg Nicotine Polacrilex (Nicotine Polacrilex 2 Mg Gum) 2 mg BUCCAL ONCE PRN PRN Reason: Nicotine Cravings Last Admin: 01/31/23 08:40 Dose: 2 mg Nicotine Polacrilex (Nicotine Polacrilex 2 Mg Gum) 2 mg BUCCAL Q1H PRN PRN Reason: Nicotine Cravings Last Admin: 01/31/23 12:30 Dose: 2 mg Pharmacy Consult (Consult Rx Perform Med Rec) 1 each MISCELLANE ONCE PRN PRN Reason: Consult order Allergies Allergies Allergy/AdvReac Type Severity Reaction Status Date / Time quetiapine [From SEROQUEL] Allergy Unknown throat Verified 08/27/22 11:47 closes per patient Assessment & Plan Assessment & Plan (1) Schizoaffective disorder, bipolar type: Status: Acute Code(s): F25.0 - Schizoaffective disorder, bipolar type Plan Pt is a 32-year-old male with history of schizoaffective disorder, bipolar type, alcohol use disorder in sustained remission who presents, accompanied by his mother, for worsening depression and suicidal ideation in the face of medication changes. -patient depressed, with AH and suicidal, feeling very unsafe; patient requires admission for medication management, safety and stabilization -patient has mother are little vague on his exact medications history. 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 -Did not restart Prozac at this time; will defer to admitting team -Continue patient on Lamictal however only at 150 mg; it seems that he was recently increased to 250 mg but this seems to be very accelerated titration if he was off of it for weeks; will defer to admitting team on how to manage me dications further -patient recently got long-acting Abilify -patient was also taking Abilify p.o. using leftover prescription that he had home -patient asked his PCP for Wellbutrin to use it to trigger a manic episode since he was feeling so depressed; he did not use it however Total time managing care of this patient today ____ minutes. Patient educated on: diagnosis, medication risk/benefits and substance abuse Informed Consent: understands
[2023-01-31] MEDS: Amoxicillin/Potassium Clav 875 MG TABLET PO (22:15)
[2023-01-31] MEDS: cloZAPine 25 MG TABLET 75 MG PO (22:15)
[2023-01-31] MEDS: Nicotine Polacrilex 2 MG GUM 4 MG BUCCAL (22:18)
[2023-01-31 22:59] VITALS: BP 136/78; PULSE 89; RESP 18; TEMP 36.3; O2SAT 96
--- NOTE | 2023-02-01 05:01 | PC.ADMIT ---
32yoM admitted to [facility] at 2155 on a CV for increase in depression, AH, and suicidal ideation with plan and means/intent. Pt states he has been increasingly depressed in the last few months, taking extra doses of his medications to cope, and even asked his PCP to Rx Wellbutrin in an attempt to trigger a manic episode. Pt reports he has been sober from alcohol for a long period of time, but 2 days ago began drinking to help motivate him to carry out his suicide attempt of cutting his wrists. He reports AH and urges to self harm, last cut self on L upper arm approx. 1 week ago. Pt denies current SI/HI/AH/VH/SH urges, thought process appears linear and organized, mood and affect is depressed/blunted. Current medications and dosages are unclear, but pt has been compliant with meds offered to him in the hospital. He reports his sleep is okay, appetite is increased with some binging/stress eating. His most recent inpatient hospitalization was 6 weeks ago at [facility]. Pt reports he is currently on antibiotics for a tooth infection but denies other medical concerns. He is a 2ppd smoker and requested 4mg gum q1hour. He was pleasant, cooperative with admission process, and signed a 3-day notice once on the unit.
[2023-02-01] MEDS: Nicotine Polacrilex 2 MG GUM 4 MG BUCCAL ×8 (08:08→18:11)
[2023-02-01] MEDS: Nicotine 21 MG PATCH.TD24 TRANSDERMA (08:33)
[2023-02-01] MEDS: clonazePAM 1 MG TABLET PO ×3 (08:34→18:08)
[2023-02-01] MEDS: lamoTRIgine 25 MG TABLET 150 MG PO (08:34)
[2023-02-01] MEDS: Amoxicillin/Potassium Clav 875 MG TABLET PO ×2 (08:34→20:50)
[2023-02-01 08:51] VITALS: BP 136/81; PULSE 102; TEMP 36.2; O2SAT 96
[2023-02-01 09:52] LABS: Alanine Aminotransferase 42 U/L (0-40); Albumin Level 4.2 g/dL (3.5-5.0); Alkaline Phosphatase 78 U/L (39-117); Anion Gap 12 (12-20); Aspartate Amino Transferase 30 U/L (5-37); Bilirubin Direct < 0.2 mg/dL (0.0-0.5); Bilirubin Total 0.5 mg/dL (0.0-1.0); Blood Urea Nitrogen 12 mg/dL (9-16); Calcium 9.2 mg/dL (8.4-10.2); Carbon Dioxide 29 mmol/L (22-29); Chloride 107 mmol/L (96-108); Cholesterol 197 mg/dL; Creatinine Clr Calc Pharmacy 184.1; Estimated Glomerular Filt Rate > 60; Glucose Fasting 95 mg/dL (60-99); HDL Cholesterol 35 mg/dL; LDL Cholesterol Calculated 89 mg/dl; Sodium 143 mmol/L (135-145); Total Protein 6.7 g/dL (6.5-8.0); Triglycerides 369 mg/dL
[2023-02-01 09:55] LABS: Estimated Average Glucose 100 mg/dL; Hemoglobin A1c % 5.1 %
[2023-02-01 10:23] LABS: Folate 15.1 ng/mL (> or = 4.0); Free T4 (Free Thyroxine) 0.76 ng/dL (0.71-1.85); Thyroid Stimulating Hormone 1.18 uIU/mL (0.32-4.0); Vitamin B12 906 pg/mL (200-900)
[2023-02-01] MEDS: hydrOXYzine HCL 25 MG TABLET PO (11:48)
[2023-02-01] MEDS: carBAMazepine 100 MG TAB.CHEW PO (14:49)
[2023-02-01] MEDS: Acetaminophen 325 MG TABLET 650 MG PO (14:56)
[2023-02-01] MEDS: FLUoxetine HCl 20 MG CAPSULE PO (15:36)
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
[2023-02-01 20:45] VITALS: BP 126/71; PULSE 101; RESP 18; TEMP 36.1; O2SAT 95
[2023-02-01] MEDS: carBAMazepine ER 200 MG TAB.ER.12H PO (20:50)
[2023-02-01] MEDS: cloZAPine 25 MG TABLET 50 MG PO (20:50)
[2023-02-01] MEDS: traZODone HCL 100 MG TABLET PO (20:50)
[2023-02-02] MEDS: Amoxicillin/Potassium Clav 875 MG TABLET PO ×2 (08:14→21:12)
[2023-02-02] MEDS: carBAMazepine ER 200 MG TAB.ER.12H PO ×2 (08:14→21:13)
[2023-02-02] MEDS: Nicotine 21 MG PATCH.TD24 TRANSDERMA (08:14)
[2023-02-02] MEDS: FLUoxetine HCl 20 MG CAPSULE PO (08:14)
[2023-02-02] MEDS: clonazePAM 1 MG TABLET PO ×3 (08:14→17:56)
[2023-02-02 08:20] VITALS: BP 136/71; PULSE 96; RESP 18; TEMP 36.4; O2SAT 97
[2023-02-02] MEDS: Nicotine Polacrilex 2 MG GUM 4 MG BUCCAL ×6 (09:24→17:56)
--- NOTE | 2023-02-02 14:07 | HO.PSYCHPN ---
Subjective Subjective Date of Service: 02/02/23 Reason For Visit: depression/ si Interim History: calm, cooperative, engaged. wondering how long to stay, 3-day notice matures tomorrow. discuss his staying longer, aware he will need to rescind 3-day notice if he would like to stay for ongoing care. states he has been living with his grandmother and has been feeling guilty about not helping out more around the house. on the plus side, states he has not cried today for the first time in 1.5 months. denies SI/AH. had a bad nightmare last night but feels otherwise he slept well. agreeable to continue clozaril taper, still planning to start saphris. mother brought in HIV medication. Mental Status Exam Mental Status Exam Narrative: Pt is alert and oriented; behavior is cooperative and calm; patient is not in distress; dressed in casual attire with unkempt hair, scruffy; affect full range; good eye contact; Speech is normal rate loudness and prosody and not pressured; no psychomotor retardation present; thought process is organized and goal directed; Thought content is on improved Sx, tx; otherwise pertinent to relevant topics and without any delusional content, paranoid ideations or grandiosity; denies SI/SIBI/HI/AVH. There is no evidence of perceptual disturbance. Patients insight and judgment are improved Diagnostics Vital Signs (24Hr): Vital Signs - 24 hr 02/01/23 20:45 02/02/23 08:20 Temperature 96.9 F 97.6 F Pulse Rate 101 H 96 Respiratory Rate 18 18 Blood Pressure 126/71 136/71 Pulse Oximetry 95 97 Oxygen Delivery Method Room Air Room Air BMI result Body Mass Index 39.1 Labs 01/30/23 18:22 02/01/23 09:02 Labs: Laboratory Results - last 48 hr 02/01/23 02/01/23 09:02 09:02 Sodium 143 Potassium 5.0 Chloride 107 Carbon Dioxide 29 Anion Gap 12 BUN 12 Creatinine 0.76 Estim Creat Clear Calc 184.1 Estimated GFR > 60 Fasting Glucose 95 Estimat Average Glucose 100 Hemoglobin A1c % 5.1 Calcium 9.2 Total Bilirubin 0.5 Direct Bilirubin < 0.2 AST 30 ALT 42 H Alkaline Phosphatase 78 Total Protein 6.7 Albumin 4.2 Triglycerides 369 Cholesterol 197 LDL Cholesterol, Calc 89 HDL Cholesterol 35 Vitamin B12 906 H Folate 15.1 TSH 1.18 Free T4 0.76 Medications Medications Current Medications Acetaminophen (Acetaminophen 325 Mg Tablet) 650 mg PO Q6H PRN PRN Reason: Headache/Pain Mild Scale (1-3) Last Admin: 02/01/23 14:56 Dose: 650 mg Al Hydroxide/Mg Hydroxide (Magnesium Hydrox/Alum Hydrox 30 Ml Oral.Susp) 30 ml PO Q6H PRN PRN Reason: Heartburn/Nausea Amoxicillin/Clavulanate Potassium (Amoxicillin/Potassium Clav 875 Mg Tablet) 875 mg PO BID [facility] Stop: 02/03/23 23:59 Last Admin: 02/02/23 08:14 Dose: 875 mg Carbamazepine (Carbamazepine Er 200 Mg Tab.Er.12h) 200 mg PO BID [facility] Last Admin: 02/02/23 08:14 Dose: 200 mg Clonazepam (Clonazepam 1 Mg Tablet) 1 mg PO TID@0800,1200,1800 [facility] Last Admin: 02/02/23 11:55 Dose: 1 mg Clozapine (Clozapine 25 Mg Tablet) 50 mg PO BEDTIME [facility] Last Admin: 02/01/23 20:50 Dose: 50 mg Emtricitabine/Tenofovir Alafenamide (Emtricitabine/Tenofov Alafenam Tablet) 1 tab PO DAILY [facility] Stop: 03/05/23 08:59 Fluoxetine HCl (Fluoxetine Hcl 20 Mg Capsule) 20 mg PO DAILY [facility] Last Admin: 02/02/23 08:14 Dose: 20 mg Hydroxyzine HCl (Hydroxyzine Hcl 25 Mg Tablet) 25 mg PO Q6H PRN PRN Reason: Anxiety Last Admin: 02/01/23 11:48 Dose: 25 mg Magnesium Hydroxide (Milk Of Magnesia 30 Ml Oral.Susp) 30 ml PO DAILY PRN PRN Reason: Constipation Nicotine (Nicotine 21 Mg Patch.Td24) 21 mg TRANSDERMA DAILY [facility] Last Admin: 02/02/23 08:14 Dose: 21 mg Nicotine Polacrilex (Nicotine Polacrilex 2 Mg Gum) 4 mg BUCCAL Q1H PRN PRN Reason: Nicotine Cravings Last Admin: 02/02/23 14:01 Dose: 4 mg Trazodone HCl (Trazodone Hcl 50 Mg Tablet) 50 mg PO BEDTIME MRX1 PRN PRN Reason: Insomnia Trazodone HCl (Trazodone Hcl 100 Mg Tablet) 100 mg PO BEDTIME [facility] Last Admin: 02/01/23 20:50 Dose: 100 mg Allergies Allergies Allergy/AdvReac Type Severity Reaction Status Date / Time quetiapine [From SEROQUEL] Allergy Unknown throat Verified 08/27/22 11:47 closes per patient Assessment & Plan Assessment & Plan (1) Schizoaffective disorder, bipolar type: Status: Acute Code(s): F25.0 - Schizoaffective disorder, bipolar type (2) Alcohol dependence, uncomplicated: Status: Acute Code(s): F10.20 - Alcohol dependence, uncomplicated Plan 02/01: DC lamictal as not helpful as a mood stabilizer. pt declines its use as an anti-depressant in bipolar disorder. start tegretol 200 BID as an evidence-based mood stabilizer. restart prozac for deperession, as pt feels it was quite helpful before it was stopped 6 weeks ago. there is no risk of medication-induced elena here because it is being prescribed in concert with a mood stabilizer, tegretol. taper clozaril as perhaps not indicated in this patient who has not been on a mood stabilizer recently; pt reports success with saphris in the past and agrees to restart it now. pt c/o insomnia, states he has found trazodone helpful in the past. start trazodone 100 mg QHS for now. 02/02: continue clozaril taper, from 50 mg last night to 25 mg tonight. otherwise continue current mgmt. awaiting saphris from outside pharmacy. slept better last night, did not cry today for the first time in 1.5 months. no SI/AVH. learned pt is taking descovy and has been for many years now, which contraindicates tegretol if HIV is being treated. will explore the issue further. may need to use VPA. Reason for contiued inpatient stay Substantial Risk for: inability to function and rapid decompensation Time Spent With Patient Time: Total time managing care of this patient today __35__ minutes.
[2023-02-02 20:15] VITALS: BP 113/56; PULSE 90; RESP 18; TEMP 36.3; O2SAT 97
[2023-02-02] MEDS: Acetaminophen 325 MG TABLET 650 MG PO (21:12)
[2023-02-02] MEDS: traZODone HCL 100 MG TABLET PO (21:12)
[2023-02-02] MEDS: cloZAPine 25 MG TABLET PO (21:13)
[2023-02-03 08:00] VITALS: BP 120/58; PULSE 94; RESP 18; TEMP 36.7; O2SAT 98
[2023-02-03] MEDS: Nicotine 21 MG PATCH.TD24 TRANSDERMA (08:00)
[2023-02-03] MEDS: Nicotine Polacrilex 2 MG GUM 4 MG BUCCAL ×3 (08:00→11:09)
[2023-02-03] MEDS: carBAMazepine ER 200 MG TAB.ER.12H PO (08:01)
[2023-02-03] MEDS: clonazePAM 1 MG TABLET PO ×2 (08:01→11:09)
[2023-02-03] MEDS: Amoxicillin/Potassium Clav 875 MG TABLET PO (08:01)
[2023-02-03] MEDS: FLUoxetine HCl 20 MG CAPSULE PO (08:01)
[2023-02-03] MEDS: Acetaminophen 325 MG TABLET 650 MG PO (08:01)
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
--- NOTE | 2023-02-03 11:37 | PC.NURSE ---
Ori is alert, fully oriented, pleasant and cooperative with discharge process. He denies ideation, plan or intent to harm self or others. He verbalizes understanding of discharge appointments and medications. He denies physical complaint.
== END 2023-02-03 11:35 | disposition home or self-care (01) | DRG 885 ==
LOC: HO.ED 01-31 16:57 → HO.PADLT16 01-31 21:20
PROVIDERS: Physician Assistant; Admitting Provider Psychiatry & Neurology Psychiatry; Emergency Provider Emergency Medicine; Visit Provider Psychiatry & Neurology Psychiatry
DX: F25.0 Schizoaffective disorder, bipolar type (principal); R45.851 Suicidal ideations; F10.20 Alcohol dependence, uncomplicated; F17.210 Nicotine dependence, cigarettes, uncomplicated; Z71.6 Tobacco abuse counseling; Y90.3 Blood alcohol level of 60-79 mg/100 ml; Z20.822 Contact with and (suspected) exposure to COVID-19; Z88.8 Allergy status to other drugs, medicaments and biological substances; Z79.899 Other long term (current) drug therapy
CPT/HCPCS: 36415; 80048; 80053; 80061; 80076; 80307; 81003; 82077; 82607; 82746; 83036; 83735; 84439; 84443; 85025; 87635; 93005; 99285; S9485

== ENCOUNTER → 2023-08-19 12:30 | Outpatient (BNV) | payer OTHER, SELFPAY | PROVIDERS: Visit Provider Psychiatry & Neurology Psychiatry | DX: F25.0 Schizoaffective disorder, bipolar type (principal); F10.20 Alcohol dependence, uncomplicated | CPT/HCPCS: 90792; 99211; 99213 ==

== ENCOUNTER 2023-09-09 11:38 | Outpatient (REF) | payer OTHER, SELFPAY ==
[2023-09-09 12:46] LABS: Alanine Aminotransferase 26 U/L (0-40); Albumin Level 4.2 g/dL (3.5-5.0); Alkaline Phosphatase 85 U/L (39-117); Anion Gap 13 (12-20); Aspartate Amino Transferase 22 U/L (5-37); Bilirubin Total 0.7 mg/dL (0.0-1.0); Blood Urea Nitrogen 8 mg/dL (9-16); Calcium 9.9 mg/dL (8.4-10.2); Carbon Dioxide 26 mmol/L (22-29); Chloride 105 mmol/L (96-108); Estimated Glomerular Filt Rate > 60; Glucose Random 85 mg/dL (60-115); Potassium 4.5 mmol/L (3.3-5.1); Sodium 139 mmol/L (135-145); Total Protein 6.9 g/dL (6.5-8.0)
[2023-09-09 12:49] LABS: Lithium 0.56 mmol/L (0.60-1.20)
--- NOTE | 2023-09-09 16:18 | HO.PHPPROGNO ---
Subjective Subjective Date of Service: 09/09/23 Reason For Visit: F25.0 Interim History: Patient seen for discharge today. This is his last day at [facility]. No acute issues. He has tolerated medication changes, transitioning off of risperidone and aripiprazole and is now taking Geodon and Latuda. Denies any adverse effects. He reports mood is euthymic, denies any helplessness, hopelessness or SI. Denies any further issues with hearing voices. Denies any other hallucinations. He has not needed to utilize prn Haldol in the interim. He is feeling this is the best place he has been in a while mentally. He requests to be discharged on his previous dose of Latuda which was 120 mg, noting that although he is doing well on the 60 mg dose, he suspects this is due to the supportive nature of being in the program and suspects he would be better off on the higher dose as he confronts everyday stressors and interactions with others in the community. He feels it is not worth jeopardizing his stability to try maintaining at the lower dose. Medication Compliance: Yes Review of Systems Acute medical concerns: No Mental Status Exam Mental Status Exam Narrative: Pleasant, engaged, forthcoming. Grooming fair. Eye contact good. Speech normal. Euthymic, bright reactive, full range of affect. No evidence of thought disorder, psychosis or agitation. Denies any SI or HI. Cognition intact. Alert and oriented x 3. Insight good, judgment intact. Diagnostics Labs 09/09/23 11:44 Labs: Laboratory Results - last 48 hr 09/09/23 11:44 Sodium 139 Potassium 4.5 Chloride 105 Carbon Dioxide 26 Anion Gap 13 BUN 8 L Creatinine 0.73 Estim Creat Clear Calc Not Reportable Estimated GFR > 60 Random Glucose 85 Calcium 9.9 D Total Bilirubin 0.7 AST 22 ALT 26 Alkaline Phosphatase 85 Total Protein 6.[address] 0[address]56 L Assessment & Plan Assessment & Plan (1) Schizoaffective disorder, bipolar type: Status: Acute Code(s): F25.0 - Schizoaffective disorder, bipolar type Assessment and Plan: most decent episode depressed (2) Alcohol dependence, uncomplicated: Status: Acute Code(s): F10.20 - Alcohol dependence, uncomplicated Plan Discharge from [facility] today, follow up treatment with community providers Reviewed discharge instructions with patient, packet signed and given to patient Will return his lurasidone to previous dose of 120 mg daily, continue on ziprasidone 80 mg BID, pt aware to take both rxs with meals Continue all other regular medications without change Rx: refills sent to home pharmacy Patient was given lap slip to have labs drawn as late in the day as possible (trough level), takes lithium HS Primary supports: parents. Lives in own apartment/H connected Patient educated on: diagnosis and medication risk/benefits Informed Consent: understands Certification I certify that partial hospital treatment is medically necessary due to the symptoms and problems resulting from the patient's mental illness and the failure to treat the patient at the partial hospital level of care would likely result in the patient requiring inpatient psychiatric care which could not be prevented at a less intensive level of care. Total time managing care of this patient today __30__ minutes. Discharge Plan Discharge Patient Disposition: Home, Self-Care Discharge Medications: New lurasidone 120 mg tablet 120 mg PO DAILY Qty: 30 0RF Rx Instructions: must administer with food (at least 350 calories) Continued clonazepam 1 mg Tablet 1 mg PO TID 14 Days Qty: 42 0RF Discontinued lurasidone 60 mg tablet 60 mg PO DAILY Qty: 30 0RF Rx Instructions: must administer with food (at least 350 calories) No Action Pt Own (Descovy 200-25 Mg) 1 tab PO DAILY Qty: 0 0RF metformin 500 mg tablet 500 mg PO BID venlafaxine 75 mg capsule,extended release 24hr 75 mg PO QAM venlafaxine 150 mg capsule,extended release 24hr 150 mg PO QAM propranolol 10 mg tablet 10 mg PO BID lithium carbonate 600 mg capsule 1,200 mg PO BEDTIME mirtazapine 30 mg tablet 30 mg PO BEDTIME benztropine 1 mg tablet 1 mg PO BID aripiprazole 15 mg tablet 15 mg PO QAM Hold Instructions: discussed cross taper off Abilify and starting lurasidone ziprasidone HCl 80 mg capsule 80 mg PO BID Qty: 30 0RF Rx Instructions: as directed give with food (meal/snack) haloperidol 5 mg tablet 5 mg PO BID PRN (Reason: agitation) Qty: 14 0RF ziprasidone HCl 80 mg capsule 80 mg PO BID Qty: 60 0RF Rx Instructions: give with food (meal/snack) Discharge Date/Time: 09/09/23 11:39
== END 2023-09-09 11:39 | disposition home or self-care (01) ==
LOC: HO.LAB 11:38
PROVIDERS: Visit Provider Psychiatry & Neurology Psychiatry
DX: F25.0 Schizoaffective disorder, bipolar type (principal)
CPT/HCPCS: 36415; 80053; 80178

== ENCOUNTER → 2023-09-09 11:38 | Outpatient (BNV) | payer OTHER, SELFPAY | PROVIDERS: Visit Provider Psychiatry & Neurology Psychiatry | DX: F25.0 Schizoaffective disorder, bipolar type (principal); F10.20 Alcohol dependence, uncomplicated | CPT/HCPCS: 99213 ==

== ENCOUNTER 2023-09-09 12:30 | Outpatient (RCR) | payer OTHER, SELFPAY ==
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
[2023-08-19 11:48] VITALS: BP 108/62; PULSE 80; TEMP 36.9
[2023-08-19 11:50] VITALS: BMI 43.0
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
[2023-08-19 15:06] LABS: Amphetamine Screen Urine Not Detected (Not Detect); Barbiturates, Urine Not Detected (Not Detect); Benzodiazepines Screen Urine Not Detected (Not Detect); Cannabinoid Screen Urine POSITIVE (Not Detect); Cocaine Screen Urine Not Detected (Not Detect); Fentanyl, urine Not Detected (Not Detect); Opiate Screen Urine Not Detected (Not Detect); Phencyclidine Screen Urine Not Detected (Not Detect)
--- NOTE | 2023-08-24 09:23 | PC.NURSE ---
Ori did not show up to the program this morning. I called Ori to f/u and left him a message to call me back. [facility] staff is aware.
--- NOTE | 2023-08-24 09:48 | PC.NURSE ---
Ori called and stated he is moving into his new apartment and plans on attending tomorrow. [facility] staff is aware.
--- NOTE | 2023-08-25 17:14 | HO.PHP ---
Clients case was reviewed and opened today in treatment team.
--- NOTE | 2023-08-26 08:16 | PC.NURSE ---
Ori called out sick to the program today. He stated he is going to get tested for Covid. I also advised Ori to call his outpatient prescriber today and ask for an increase in medication since he mentioned when he is very stressed he gets paranoid thoughts thinking when he sees people leave a building together it is a coordinated effort or thinking people are watching him. (He was scheduled to see Dr Thornton today at in the PHP program). [facility] staff is aware.
--- NOTE | 2023-08-30 12:23 | HO.PHPPROGNO ---
Subjective Subjective Date of Service: 08/30/23 Reason For Visit: schizoaffective d/o,AUD Interim History: This is a follow-up with Herbie at his request. He states that he has been having some mood fluctuations and stop the Wellbutrin because he did not want to get ?manic?. He also stop the risperidone because of marked increase in his appetite and excessive eating. He states that he had previously he did extremely well on Kristian own and would like to resume that. He will start at 40 mg and increase it to 80 mg. Side effects reviewed. Importance of taking it with food discussed. He will stay off Wellbutrin and risperidone. His other medications were reviewed and maintained. He meets with his psychiatrist next week. He talked about his new apartment which she likes a lot. He denies any suicidal ideations. Review of Systems Review of Systems Increased appetite and weight Yes all other systems are reviewed and are negative Mental Status Exam Mental Status Exam Narrative: In today's visit he is alert, oriented and pleasant. Normal speech. Good eye contact. Affect is appropriate and varied. No signs of acute psychosis but admits to auditory hallucinations which are not command in nature. Some paranoia. No delusions. No SI/HI. Cognitively intact. Judgment is intact Diagnostics Vital Signs (24Hr): BMI result Body Mass Index 43.0 Assessment & Plan Assessment & Plan (1) Schizoaffective disorder, bipolar type: Status: Acute Code(s): F25.0 - Schizoaffective disorder, bipolar type Plan Continue current medications except for Wellbutrin and risperidone and initiated Geodon 40 mg b.i.d.. He will be seen by 1 of his next week Patient educated on: diagnosis and medication risk/benefits Certification I certify that partial hospital treatment is medically necessary due to the symptoms and problems resulting from the patient's mental illness and the failure to treat the patient at the partial hospital level of care would likely result in the patient requiring inpatient psychiatric care which could not be prevented at a less intensive level of care. Total time managing care of this patient today ____ minutes. Discharge Plan Discharge Attending provider: Yair Serrano Medications: New ziprasidone HCl [Geodon] 40 mg capsule 40 mg PO BID Qty: 60 0RF Rx Instructions: give with food (meal/snack) 1 daily X few days then 1 BID Discontinued risperidone 2 mg tablet 2 mg PO BID PRN (Reason: Agitation) No Action clonazepam 1 mg Tablet 1 mg PO TID Pt Own (Descovy 200-25 Mg) 1 tab PO DAILY Qty: 0 0RF metformin 500 mg tablet 500 mg PO BID venlafaxine 75 mg capsule,extended release 24hr 75 mg PO QAM venlafaxine 150 mg capsule,extended release 24hr 150 mg PO QAM propranolol 10 mg tablet 10 mg PO BID lithium carbonate 600 mg capsule 1,200 mg PO BEDTIME mirtazapine 30 mg tablet 30 mg PO BEDTIME benztropine 1 mg tablet 1 mg PO BID aripiprazole 15 mg tablet 15 mg PO QAM
--- NOTE | 2023-09-01 09:20 | PC.NURSE ---
Ori called me to state he overslept and would not be able to come to the program as a result. He stated he was safe and will be coming to the program tomorrow. [facility] staff is aware.
--- NOTE | 2023-09-02 14:35 | HO.PHPPROGNO ---
Subjective Subjective Date of Service: 09/02/23 Reason For Visit: schizoaffective d/o,AUD Interim History: Herbie seen for follow-up due to reports of hallucinations and requesting to see t/w about further increase in the Geodon. Last seen for follow-up on 08/[address] Thornton. Chart reviewed. I'm tired today Herbie was present in groups, agreeable to meeting with t/w. He reports being unable to sleep last night, he's been experiencing AH, hearing voices of his neighbors talking, sometimes talking about him, denies any concerning content, but does make him feel uncomfortable with trying to meet his neighbors while he is feeling depressed. He reports recently moving into his own 2-bedroom apartment, despite some stressors pertaining to recent move, overall he views the change positively. There is some anxiety about his partner who will be moving in (?) or staying over soon, and understandbly he is both nervous and happy about having company. Aside from these stressors, he can not identify any other precipitants for the AH which has been going on for past 3 or 4 days. Denies any VH, denies any recnt substance use. AH interrupting sleep, worsening tiredness and causing him to miss some days at the program. He notes making extra effort to get himself in today due to earlier absences. Also endorses some mild paranoid thoughts stemming from the AH, but says he is aware this is due to his condition and maintains good insight into illness, and wishes to increase the dose of Geodon which was started on Tuesday. Has been well-tolerated. Currently taking 40 mg BID, has been taking with meals, denies any adverse effects. He has been on Geodon in the past (at 80 mg BID) and reports that it worked well for him,was helpful with psychosis and is eager to increase the dose. He denies any stiffness or tremor. Denies any history of EPS from Geodon. He is noted to be on Cogentin 1 mg BID. It is noted that he was on Risperdal 4 mg prior to switching over to Geodon earlier this week, this was abruptly discontiued. Risp 4 mg last taken 4 or 5 days ago. Depression has been going on for some time, on and off for past couple of months (prior to moving to [facility] a week ago). He denies any current thoughts of harming himself ro others. Venlafaxine currently at 225 mg, dose increase several weeks ago did prove helpful especially for panic attacks, not so much for the depression however he denies the increase has contribued to worsening mood.(Ie. denies feeling emotionally blunted from the snri, pt is clear that his depression is not fully treated). He reports being compliant with all his medicaitons. Reviewing his current medications regime. He has been taking lithium 1200 mg all at once in the evening (rather than BID as prescribed). He did not seem aware he should be splitting the dose. Reports his last lithium level was 0.4 but was not sure about creatinine level or when he last had labwork done. There was some mention of bladder complaints which I inquired about, but denies any current complaints and says he was started on Protonix which has addressed the heartburn he was experiencing from the meds. Abilify at 15 mg. He has been on ABilify for some time and is not sure this has been helpful. He notes his last hospitalization, perhaps 1.5 yrs ago was on Prozac and Abilfiy and was switched to Lamictal and ABilify, and felt even worse after discharge, ended up at [facility] for 4 months. Had some chaotic housing experiences with dysfuncitonal roommate dynamics, eventually parents helped him get into a jail. Lamcital was in the interim. Previosuly he has been on Latuda up to 120 mg (? 6 yrs ago), apparently it had worked and the Abilify was dropped without issue and presumably this is why he is not sure it is effective, however he could not provide further details on trtmt hx. Medication Compliance: Yes Side effects from medications: No Attending Groups: Yes Review of Systems Acute medical concerns: No Medical Review of Systems: unchanged Mental Status Exam Mental Status Exam Narrative: Patient presents with fair grooming and hygiene. Pleasant, agreeable, forthcoming, well-related. Maintains appropriate behavior, slightly reserved. Good eye contact. Articulate speech, without pressure or paucity. Mood is depressed. Affect subdued, congruent with some range in affect. Denies SI/HI. Reports AH, denies command-type, denies other hallucinosis. Reports having anxiety, some paranoid ideation no other delusional content. No evidence of disorganized thoughts. Appears tired, but otherwise alert and oriented x3. Cognition intact, in fact patient was also able to recall meeting me during a previous encounters during his IP stay at [facility] in . Insight is good, judgment intact. Diagnostics Vital Signs (24Hr): BMI result Body Mass Index 43.0 Assessment & Plan Assessment & Plan (1) Schizoaffective disorder, bipolar type: Status: Acute Code(s): F25.0 - Schizoaffective disorder, bipolar type Assessment and Plan: Most Recent Episode - Depressed (2) Alcohol dependence, uncomplicated: Status: Acute Code(s): F10.20 - Alcohol dependence, uncomplicated Plan worsening AH in light of recent medication changes. Discontinutation of Risperdal 4 mg stopped 4 days ago without taper, started on Geodon 40 mg BID with plan to gradually titrate until effective. also discussed Abilify, pt questioning its efficacy. He denies any having any manic symptoms, no evidence of elena. Given concerns for med interactions, particuarly cardiac with aripiprazole and ziprasidone, it may be a better option to switch off the ABilify and over to Latuda, which should be more helpful for his depression and less concerning med interactx w Geodon. Will plan to titrate Geodon BID to 40/80 mg for over the weekend and then to 80 mg BID as tolerated. Will also cross taper from Abliify onto Latuda. There were previous discussions with prior trtmt provider about Haldol, which patient reports having found helpful as a prn and in fact has taken this recently to help with psychosis. He is currently out of the Haldol which was dosed at 10 mg tabs. At this point, we will continue with the plan of titrating the Geodon and switching off Abilify and starting Latuda. We discussed making a short script of Haldol accessible to him to take as neededin the interim to address any further acute psychotic sx especially given these recent medications changes, and likely will expect to aggrevate some of his symptomsin the following days, while we make further adjustments. PLAN continue partial hosp. program increase BID dosing of ziprasidone to 40 mg in AM and 80 mg in PM, taken with food taper Abilify to 7.5 mg (1/2 tablet 15 mg), then discontinue on Tuesday start lurasidone 30 mg (1/2 tablet 60 mg) x 3 days, then increase to whole 60 mg tablet daily in PM with meal start haloperidol 5 mg (take 1-2 tabs) as needed for psych sx off risperidone (08/30/23) continue lithium 1200 mg/d (supposed to be BID, will plan to discuss this further next week) creatinine level (check when last labwork done - renal fxn, TFTs, cmp, Li level - will review next week) cont venlafaxine ER 225 mg qAM cont benztropine 1 mg BID cont propranolol 10 mg TID cont mirtazapine 30 mg qhs (also will review side effect profile w pt) cont metformin 500 mg BID continue all regular medications Patient educated on: diagnosis, medication risk/benefits and substance abuse Informed Consent: understands Reason for contiued partial hosp. stay Substantial Risk for: med/psych decompensation Certification I certify that partial hospital treatment is medically necessary due to the symptoms and problems resulting from the patient's mental illness and the failure to treat the patient at the partial hospital level of care would likely result in the patient requiring inpatient psychiatric care which could not be prevented at a less intensive level of care. Total time managing care of this patient today __45__ minutes. Discharge Plan Discharge Attending provider: Yair Serrano Additional Instructions: Ori has an OP therapist Marion Ritter, in which his next scheduled appointment is on 09/12/2023, Ori was uncertain the time. Ori also has a med provider, Dr. Leo Paul through [facility], in which his next appointment is September 05, 2023 at 3 PM. Medications: New ziprasidone HCl [Geodon] 40 mg capsule 40 mg PO BID Qty: 60 0RF Hold Instructions: patient will increase BID dose of ziprasidone to 40 mg AM/80 mg PM with food x 4 days, then increase to 80 mg BID as tolerated Rx Instructions: give with food (meal/snack) 1 daily X few days then 1 BID ziprasidone HCl 80 mg capsule 80 mg PO BID Qty: 30 0RF Rx Instructions: as directed give with food (meal/snack) lurasidone 60 mg tablet 60 mg PO DAILY Qty: 30 0RF Rx Instructions: must administer with food (at least 350 calories) haloperidol 5 mg tablet 5 mg PO BID PRN (Reason: agitation) Qty: 14 0RF Held aripiprazole 15 mg tablet 15 mg PO QAM Hold Instructions: discussed cross taper off Abilify and starting lurasidone Discontinued risperidone 2 mg tablet 2 mg PO BID PRN (Reason: Agitation) No Action clonazepam 1 mg Tablet 1 mg PO TID Pt Own (Descovy 200-25 Mg) 1 tab PO DAILY Qty: 0 0RF metformin 500 mg tablet 500 mg PO BID venlafaxine 75 mg capsule,extended release 24hr 75 mg PO QAM venlafaxine 150 mg capsule,extended release 24hr 150 mg PO QAM propranolol 10 mg tablet 10 mg PO BID lithium carbonate 600 mg capsule 1,200 mg PO BEDTIME mirtazapine 30 mg tablet 30 mg PO BEDTIME benztropine 1 mg tablet 1 mg PO BID Stand Alone Forms: Patient Portal Discharge page
--- NOTE | 2023-09-05 09:30 | HO.PHP ---
PHP staff reached out to Ori due to him not showing up to program. Ori did not answer the phone. PHP staff left a VM stating if she does not hear from him within 15 minutes she will have to reach out to his Emergency Contact and if the Emergency Contact doesn't respond we will have to do a wellness check. [facility] staff is awaiting a phone call back.
--- NOTE | 2023-09-05 09:45 | HO.PHP ---
PHP staff reached out to Ori an additional time prior to contacting the Emergency Contact. Ori did not answer and VM was left stating that she is going to proceed with contacting his Emergency Contact and if she doesn't hear from them, a wellness check will be completed. PHP staff will move forward with contacting Emergency Contact.
--- NOTE | 2023-09-05 09:55 | HO.PHP ---
PHP staff received a return phone call from Ori's mother who noted she was unable to get a hold of him. Ori's mother still expressed concerns around a wellness check with how the police will be able to get into the building and how that will look with him being new to the building. PHP staff expressed that she hears her concerns but at this time we are uncertain to if he is sleeping or if something else has occurred. PHP staff noted that Ori is aware that we have to complete wellness checks for safety purposes. Ori's mother was receptive and asked if she should go out to his house. PHP staff expressed if she is able to, that is her decision. Ori's mother voiced that she might go to meet the police to inform them. PHP staff was receptive.
--- NOTE | 2023-09-05 10:00 | HO.PHP ---
PHP staff received a phone call from Ori prior to completing the wellness check. PHP staff voiced that she was just about to do a wellness check on him prior to him call. Ori was glad a wellness check was not initiated. Ori had disclosed that he thought he informed the program that he has a med provider appointment today and won't be attending. PHP staff expressed that she does have the appointment and he noted he would still be in attendance since it is later in the day. Ori then asked PHP staff member what time it is. PHP staff member disclosed that it is 10:00 AM. Ori voiced that he didn't realize it was that late into the day already and apologized. PHP staff member explored if Ori had overslept. Ori disclosed he had and had his blinds down, which is why he was uncertain to the time. PHP staff was receptive and assessed for safety since Ori is not coming in for the day. Ori disclosed no concerns around safety and mentioned he has no SI,plan or intent. Ori expressed that he will be at the program tomorrow. PHP staff was receptive.
--- NOTE | 2023-09-05 10:07 | HO.PHP ---
PHP staff reached out to Ori's emergency contact, Galina, who is his mother. Galina had noted that she drives Ori to program and she reached out to him on multiple occasions yesterday once at 1:30 PM and again around 8 PM to see if he needs a ride to program today. Galina voiced that he had not responded which is unusual for him since they talk on a daily basis. Galina did state that she sent him a text this morning to see if he would be in attending program and he had responded voicing that he has a med appointment with Dr. Paul today. Galina explored with PHP staff if that is accurate. PHP staff voiced that he does have a med provider today, but it is not until later in the day and he would have been able to attend the program. Galina was receptive and disclosed that he started a new medication Geodon that has been making him drowsy. PHP staff was receptive and voiced that since we are uncertain about safety and she is noting it is odd he hasn't been communicating with her, she is going to preform a wellness check. Galina voiced that she does not know how a wellness check can be preformed since there is no doorbell and he lives up on the third floor. PHP staff voiced that she can inform the police of that. Galina noted that she would like to try to get a hold of him prior to the check to see if he responds. PHP staff was receptive. Galina expressed that she would contact the clinician back to inform her whether or not she got a hold of him and will have him reach out as well if she does get in contact. PHP staff was receptive.
--- NOTE | 2023-09-05 16:35 | HO.PHP ---
PHP staff member reached out to Ori's therapist around 9:40 AM. Ori's therapist phone line continuously rang and there was no voicemail box to leave a message.
--- NOTE | 2023-09-06 08:45 | HO.PHP ---
PHP staff member received a phone call from Ori stating that he would not be in attendance to program today due to having an infection in his eye where he is unable to open. Ori disclosed he is going to reach out to his PCP. [facility] staff member was receptive and assessed safety. Ori reported no concerns around SI,plan or intent and mentioned he will be in attendance to program tomorrow. [facility] staff informed him if he is unable to partake in the program the remainder of this week, we will have to discharge him from services. Ori was receptive and noted he will be in attendance the remainder of the week.
--- NOTE | 2023-09-06 20:50 | HO.PHPPROGNO ---
Subjective Subjective Date of Service: 09/06/23 Reason For Visit: schizoaffective d/o,AUD Interim History: Phone Note Ori did not attend program today I spoke with patient over the phone to check in are regarding Med changes we made at the end of last week. he reports tolerating medication changes Geodon now at 80 mg twice a day and switching over from Abilify to Latuda now at 60 mg qd. He reports improvements with AH he has not had any episodes of hearing his neighbors voices and past three to four days also reports no depression at this time however is not sure if this is fully attributable to the medication or a decrease in his stress level but remains optimistic he has been Latuda 120 mg in the past hot and suspect's given his high tolerance may need further titration if stress increases. he reports missing on account of an eye infection was started on antibiotics intends attend the program tomorrow. he is aware there is a lab work order for him to check on lithium level and metabolic panel, specifically renal function. chart was reviewed last lab work from January. I advise him to get his lab work done as late in the afternoon as possible to get a more accurate read on his lithium level (trough level) as he takes all his medication at night. we'll plan to follow up with him tuesday for discharge phone note patient did not attend program today I spoke with patient over the phone to check in are regarding Med changes we made at the end of last week. Diagnostics Vital Signs (24Hr): BMI result Body Mass Index 43.0 Assessment & Plan Assessment & Plan (1) Alcohol dependence, uncomplicated: Status: Acute Code(s): F10.20 - Alcohol dependence, uncomplicated (2) Schizoaffective disorder, bipolar type: Status: Acute Code(s): F25.0 - Schizoaffective disorder, bipolar type Plan continue treatment plan f/u /tue Certification I certify that partial hospital treatment is medically necessary due to the symptoms and problems resulting from the patient's mental illness and the failure to treat the patient at the partial hospital level of care would likely result in the patient requiring inpatient psychiatric care which could not be prevented at a less intensive level of care. Total time managing care of this patient today ____ minutes. Discharge Plan Discharge Attending provider: Magaly Junior Additional Instructions: Ori has an OP therapist Marion Ritter, in which his next scheduled appointment is on September 12, 2023 at 2 PM Ori also has a med provider, Dr. Leo Paul through [facility], in which his next appointment is September 19, 2023 at 9:40 PM. Medications: New ziprasidone HCl 80 mg capsule 80 mg PO BID Qty: 30 0RF Rx Instructions: as directed give with food (meal/snack) lurasidone 60 mg tablet 60 mg PO DAILY Qty: 30 0RF Rx Instructions: must administer with food (at least 350 calories) haloperidol 5 mg tablet 5 mg PO BID PRN (Reason: agitation) Qty: 14 0RF ziprasidone HCl 80 mg capsule 80 mg PO BID Qty: 60 0RF Rx Instructions: give with food (meal/snack) Held aripiprazole 15 mg tablet 15 mg PO QAM Hold Instructions: discussed cross taper off Abilify and starting lurasidone Discontinued risperidone 2 mg tablet 2 mg PO BID PRN (Reason: Agitation) No Action Pt Own (Descovy 200-25 Mg) 1 tab PO DAILY Qty: 0 0RF metformin 500 mg tablet 500 mg PO BID venlafaxine 75 mg capsule,extended release 24hr 75 mg PO QAM venlafaxine 150 mg capsule,extended release 24hr 150 mg PO QAM propranolol 10 mg tablet 10 mg PO BID lithium carbonate 600 mg capsule 1,200 mg PO BEDTIME mirtazapine 30 mg tablet 30 mg PO BEDTIME benztropine 1 mg tablet 1 mg PO BID clonazepam 1 mg Tablet 1 mg PO TID 14 Days Qty: 42 0RF Stand Alone Forms: Patient Portal Discharge page Patient Education: Schizoaffective Disorder (DC)
--- NOTE | 2023-09-07 13:01 | PC.NURSE ---
Ori talked to staff about having a sexual addiction. He stated he has been meeting multiple males on [employer] for sex and not using protection. Concerned about STD's. He stated he is on Descovy and has been getting testing every 3 months. I gave Ori written and verbal information about [facility] who in addition to testing for STD's could provide him with condoms to use to protect himself. Also gave Ori information about [facility].
--- NOTE | 2023-09-09 16:18 | P.PNPSP_ITS ---
Subjective Subjective Date of Service: 09/09/23 Reason For Visit: schizoaffective d/o,AUD Interim History: Patient seen for discharge today. This is his last day at [facility]. No acute issues. He has tolerated medication changes, transitioning off of risperidone and aripiprazole and is now taking Geodon and Latuda. Denies any adverse effects. He reports mood is euthymic, denies any helplessness, hopelessness or SI. Denies any further issues with hearing voices. Denies any other hallucinations. He has not needed to utilize prn Haldol in the interim. He is feeling this is the best place he has been in a while mentally. He requests to be discharged on his previous dose of Latuda which was 120 mg, noting that although he is doing well on the 60 mg dose, he suspects this is due to the supportive nature of being in the program and suspects he would be better off on the higher dose as he confronts everyday stressors and interactions with others in the community. He feels it is not worth jeopardizing his stability to try maintaining at the lower dose. Medication Compliance: Yes Review of Systems Acute medical concerns: No Mental Status Exam Mental Status Exam Narrative: Pleasant, engaged, forthcoming. Grooming fair. Eye contact good. Speech normal. Euthymic, bright reactive, full range of affect. No evidence of thought disorder, psychosis or agitation. Denies any SI or HI. Cognition intact. Alert and oriented x 3. Insight good, judgment intact. Diagnostics Labs Labs: Laboratory Results - last 48 hr 09/09/23 11:44 Sodium 139 Potassium 4.5 Chloride 105 Carbon Dioxide 26 Anion Gap 13 BUN 8 L Creatinine 0.73 Estim Creat Clear Calc Not Reportable Estimated GFR > 60 Random Glucose 85 Calcium 9.9 D Total Bilirubin 0.7 AST 22 ALT 26 Alkaline Phosphatase 85 Total Protein 6.9 Albumin 4.2 [place] 0.56 L Assessment & Plan Assessment & Plan (1) Schizoaffective disorder, bipolar type: Status: Acute Code(s): F25.0 - Schizoaffective disorder, bipolar type Assessment and Plan: most decent episode depressed (2) Alcohol dependence, uncomplicated: Status: Acute Code(s): F10.20 - Alcohol dependence, uncomplicated Plan Discharge from [facility] today, follow up treatment with community providers Reviewed discharge instructions with patient, packet signed and given to patient Will return his lurasidone to previous dose of 120 mg daily, continue on ziprasidone 80 mg BID, pt aware to take both rxs with meals Continue all other regular medications without change Rx: refills sent to home pharmacy Patient was given lap slip to have labs drawn as late in the day as possible (trough level), takes lithium HS Primary supports: parents. Lives in own apartment/H connected Patient educated on: diagnosis and medication risk/benefits Informed Consent: understands Certification I certify that partial hospital treatment is medically necessary due to the symptoms and problems resulting from the patient's mental illness and the failure to treat the patient at the partial hospital level of care would likely result in the patient requiring inpatient psychiatric care which could not be prevented at a less intensive level of care. Total time managing care of this patient today __30__ minutes. Discharge Plan Discharge Attending provider: Magaly Junior Additional Instructions: Ori has an OP therapist Marion Ritter, in which his next scheduled appointment is on September 12, 2023 at 2 PM Ori also has a med provider, Dr. Leo Paul through [facility], in which his next appointment is September 19, 2023 at 9:40 PM. Medications: New ziprasidone HCl 80 mg capsule 80 mg PO BID Qty: 30 0RF Rx Instructions: as directed give with food (meal/snack) lurasidone 60 mg tablet 60 mg PO DAILY Qty: 30 0RF Rx Instructions: must administer with food (at least 350 calories) haloperidol 5 mg tablet 5 mg PO BID PRN (Reason: agitation) Qty: 14 0RF ziprasidone HCl 80 mg capsule 80 mg PO BID Qty: 60 0RF Rx Instructions: give with food (meal/snack) Held aripiprazole 15 mg tablet 15 mg PO QAM Hold Instructions: discussed cross taper off Abilify and starting lurasidone Discontinued risperidone 2 mg tablet 2 mg PO BID PRN (Reason: Agitation) No Action Pt Own (Descovy 200-25 Mg) 1 tab PO DAILY Qty: 0 0RF metformin 500 mg tablet 500 mg PO BID venlafaxine 75 mg capsule,extended release 24hr 75 mg PO QAM venlafaxine 150 mg capsule,extended release 24hr 150 mg PO QAM propranolol 10 mg tablet 10 mg PO BID lithium carbonate 600 mg capsule 1,200 mg PO BEDTIME mirtazapine 30 mg tablet 30 mg PO BEDTIME benztropine 1 mg tablet 1 mg PO BID clonazepam 1 mg Tablet 1 mg PO TID 14 Days Qty: 42 0RF Stand Alone Forms: Patient Portal Discharge page Patient Education: Schizoaffective Disorder (DC)
--- NOTE | 2023-09-09 16:39 | HO.PHP ---
[facility] staff spoke with Ori's OP therapist to inform her how Ori presented within the program, when he started and his end date. Ori's OP therapist was receptive and appreciated the phone call.
== END 2023-09-09 23:59 | disposition home or self-care (01) ==
LOC: HO.PHPA 12:30
PROVIDERS: Psychiatry & Neurology Psychiatry; Visit Provider Psychiatry & Neurology Psychiatry
DX: F25.0 Schizoaffective disorder, bipolar type (principal); F10.20 Alcohol dependence, uncomplicated; Z79.899 Other long term (current) drug therapy
CPT/HCPCS: 80307; 90791; 90853; 99213

== ENCOUNTER 2024-01-13 09:03 | Outpatient (REF) | payer OTHER, SELFPAY ==
[2024-01-13 09:20] LABS: MANUAL DIFF FLAG NO
[2024-01-13 09:54] LABS: Basophils Percent Auto 0.7 % (0-2); Eosinophils Absolute Auto 0.2 X10*3/uL (0.0-0.4); Hematocrit 47.1 % (42.0-52.0); Hemoglobin 15.8 g/dl (14.0-18.0); Imm Gran Abs Auto 0.03 X10*3/uL (0.00-0.03); Imm Gran Pct Auto 0.5 % (0.0-0.4); Lymphocytes Absolute Auto 0.9 X10*3/uL (1.2-4.9); Lymphocytes Percent Auto 14.9 % (20-40); Mean Corpuscular HGB Conc 33.5 g/dl (31.0-36.0); Mean Corpuscular Hemoglobin 30.3 pg (27.0-33.0); Mean Corpuscular Volume 90.2 fL (80.0-98.0); Mean Platelet Volume 10.9 fL (9.4-12.4); Monocytes Absolute Auto 0.7 X10*3/uL (0.1-1.2); Monocytes Percent Auto 12.2 % (2-11); Neutrophils Absolute Auto 4.1 x10*3/uL (2.0-8.3); Neutrophils Percent Auto 68.7 % (45-73); Platelet Count 194 X10*3/uL (160-400); Red Blood Count 5.22 X10*6/uL (4.60-5.80); Red Cell Distribution Width 12.5 % (11.0-16.0); White Blood Count 5.9 X10*3/uL (4.8-10.8)
[2024-01-13 10:14] LABS: Lithium 0.38 mmol/L (0.60-1.20)
[2024-01-13 10:42] LABS: Estimated Average Glucose 85 mg/dL; Hemoglobin A1c % 4.6 % (<6.0)
[2024-01-13 10:56] LABS: Alanine Aminotransferase 78 U/L (0-40); Albumin Level 4.2 g/dL (3.5-5.0); Alkaline Phosphatase 92 U/L (39-117); Anion Gap 11 (12-20); Aspartate Amino Transferase 34 U/L (5-37); Bilirubin Total 0.6 mg/dL (0.0-1.0); Blood Urea Nitrogen 13 mg/dL (9-16); Calcium 9.3 mg/dL (8.4-10.2); Carbon Dioxide 27 mmol/L (22-29); Chloride 102 mmol/L (96-108); Cholesterol 177 mg/dL (<200); Estimated Glomerular Filt Rate > 60; Gamma Glutamyl Transpeptidase 99 U/L (11-51); Glucose Fasting 81 mg/dL (60-99); HDL Cholesterol 37 mg/dL (>40); LDL Cholesterol Calculated 81 mg/dL (<100); Potassium 4.4 mmol/L (3.3-5.1); Sodium 136 mmol/L (135-145); Triglycerides 299 mg/dL (<150)
[2024-01-13 11:01] LABS: Free T4 (Free Thyroxine) 0.88 ng/dL (0.71-1.85); Thyroid Stimulating Hormone 1.77 uIU/mL (0.32-4.0)
[2024-01-14 08:19] LABS: Triiodothyronine T3 Total 127 ng/dL (76-181)
== END 2024-01-13 09:04 | disposition home or self-care (01) ==
LOC: HO.LAB 09:03
PROVIDERS: PCP Internal Medicine; Visit Provider Psychiatry & Neurology Psychiatry
DX: F25.0 Schizoaffective disorder, bipolar type (principal); Z79.899 Other long term (current) drug therapy
CPT/HCPCS: 36415; 80053; 80061; 80178; 82977; 83036; 84439; 84443; 84480; 84481; 85025

== ENCOUNTER 2024-01-13 12:00 | Outpatient (RCR) | payer OTHER, SELFPAY ==
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
[2024-01-05 15:48] VITALS: BP 128/78; PULSE 80; TEMP 37
--- NOTE | 2024-01-05 16:07 | HO.PHP ---
Client's case has been opened and reviewed in treatment team.
[2024-01-06 08:13] LABS: Amphetamine Screen Urine Not Detected (Not Detect); Barbiturates, Urine Not Detected (Not Detect); Benzodiazepines Screen Urine Not Detected (Not Detect); Cannabinoid Screen Urine POSITIVE (Not Detect); Cocaine Screen Urine Not Detected (Not Detect); Fentanyl, urine Not Detected (Not Detect); Opiate Screen Urine Not Detected (Not Detect); Phencyclidine Screen Urine Not Detected (Not Detect)
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
--- NOTE | 2024-01-10 20:19 | P.PNPSP_ITS ---
Subjective Subjective Date of Service: 01/10/24 Reason For Visit: schizophrenia Interim History: Patient seen for follow up. He requesting to be seen by provider about medications. Patient reports being very happy today, finding out that his Hep C viral count has dropped by 75 % and will likely not need treatment. They will be rechecking his levels in a couple of months. He notes that paranoia, hallucinations are much better with addition of Haldol at 10 mg BID. He says he is doing better but is still experiencing AH, VH residually and says he really needs to be at 30 mg/d which is the right dose for him in controlling his symptoms. He denies any adverse effects, says he has ne leyda experienced any EPS, acute dystonia, TDs or other adverse effects related to NL medication. He admits feeling sedated for an hour after taking the 10 mg dose (pt does not drive), but nonetheless says would rather deal with tiredness than hallucinations, which are terrifying . Denies CTAH, mostly bizarre, disturbing images, and self-depricating content. He says he worries if he isn't treated adequately it would lead to another hospitalization and adds that nothing is more terrifying than experiencing the garcia talking (to him when IP). Feeling trapped on the unit and unable to get outside or distract himself is the worse kind of hell . He is optimistic the additional 10 mg will fully treat. He has been on daily doses of Haldol up to 40 mg in the past. I suggest, if he runs into any trouble with sedation, he could try splitting the 10 mg tablets and stagger administration into 5 mg doses, to avoid sleepiness in the day, and perhaps consolidate the remaining for HS (ie 5 mg TID (AM, lunch afternoon) and 15 mg in QHS). He continues on metformin 500 mg BID without any issues. Exploring other options, patient has also been on Trilafon in the past(he reports last being on Trilafon 2 years ago), which is less sedating and he reports it was effective for him in terms of positive psychotic sx. For now alcohol cravings persist. He has been told naltrexone is out of stock at his pharmacy, and when he runs out in the next few days, he does not know when he will be able to fill this again. He is agreeable to further increase in Topemax. We reviewed risk, benefit ,side effects and will work up dose to 100 mg at night, and continue 50 mg in AM. ROS negative for headaches, vision changes, fever, chills, [place], neck/jaw/shoulder pain or stiffness, difficulties talking or swallowing, vision change, dizziness, weakness, parethesias, tremulousness, rashes, weight change, CP, SOB, GI issues, N/V/D. Myalgias. Sleep, appetite intact, energy fair. Medication Compliance: Yes Side effects from medications: Yes (as noted above - transient sedation following AM Haldol admin) Attending Groups: Yes Review of Systems Acute medical concerns: No Mental Status Exam Mental Status Exam Narrative: Alert, oriented, in no acute distress. Calm, cooperative, engaged and agreeable, well-related. No tics, tremors, or abnormalities of movement noted. Reduced arm swing on gait. Eye contact maintained. Mood anxious, affect variable, mood congruent. Speech normal. Thought process linear, coherent. Thought content related to stressors, denies any helplessness, hopelessness or SI.? No aggressive ideation or HI. No paranoia or delusional content elicited. No evidence of psychosis. Insight and judgment good-fair. Assessment & Plan Assessment & Plan (1) Schizoaffective disorder, bipolar type: Status: Acute Code(s): F25.0 - Schizoaffective disorder, bipolar type (2) Alcohol dependence, uncomplicated: Status: Acute Code(s): F10.20 - Alcohol dependence, uncomplicated (3) Polysubstance abuse: Status: Acute Code(s): F19.10 - Other psychoactive substance abuse, uncomplicated (4) Other mixed anxiety disorders: Status: Acute Code(s): F41.3 - Other mixed anxiety disorders Plan increase Haldol 10 mg BID to TID dosing (encouraged taking as 03/25/04/04 for better tolerance if needed (pharmacy/insurance requesting 90 day Rx) alternatively may switch to a mid-lower potency typical (like perphenazine) which patient has previously been treated on and tolerated continue benztropine 1 mg BID (if switch to perphenazine, will decrease to once daily dosing) continue lithium 600 mg BID continue olanzapine 15 mg BID continue venlafaxine ER 225 mg qd continue clonidine 0.1 mg QID conitnue clonazepam 1 mg TID prn anxiety (takes regularly) continue naltrexone 50 mg qhs (current shortage, patient may have difficulties filling next week) increase topiramate to 50 mg qhs, continue 25 mg qAM plan to further titrate to 50mg AM/100 mg at night, if unable to fill naltrexone continue pantoprazole 40 mg qd continue metformin 500 mg BID pending orders for routine lab work, including HbA1c, lipid panel, [place] level, UDS and VS as indicated Normal EKG from 01/2023, will order EKG next week (once on TID Haldol) continue to monitor Patient educated on: diagnosis, medication risk/benefits and substance abuse Informed Consent: understands Reason for contiued partial hosp. stay Substantial Risk for: inability to function, rapid decompensation and med/psych decompensation Certification I certify that partial hospital treatment is medically necessary due to the symptoms and problems resulting from the patient's mental illness and the failure to treat the patient at the partial hospital level of care would likely result in the patient requiring inpatient psychiatric care which could not be prevented at a less intensive level of care. Total time managing care of this patient today _30___ minutes. Discharge Plan Discharge Attending provider: Magaly Junior Medications: New metformin 500 mg tablet 500 mg PO BID Qty: 30 0RF topiramate 50 mg tablet 50 mg PO QAM 30 Days Qty: 30 0RF topiramate 100 mg tablet 100 mg PO BEDTIME 30 Days Qty: 30 0RF Continued Pt Own (Descovy 200-25 Mg) 1 tab PO DAILY Qty: 0 0RF clonidine HCl 0.1 mg tablet 0.1 mg PO TID PRN (Reason: anxiety) 30 Days Qty: 90 0RF venlafaxine 75 mg Tablet 75 mg PO DAILY 30 Days Qty: 30 0RF naltrexone 50 mg tablet 50 mg PO .QHS 30 Days Qty: 30 0RF clonazepam 1 mg Tablet 1 mg PO TID 15 Days Qty: 45 1RF venlafaxine 150 mg Capsule,Extended Release 24hr 150 mg PO DAILY 30 Days Qty: 30 0RF lithium carbonate 600 mg capsule 600 mg PO BID 30 Days Qty: 60 0RF pantoprazole 40 mg tablet,delayed release (DR/EC) 40 mg PO DAILY 30 Days Qty: 30 0RF trazodone 150 mg tablet 150 mg PO BEDTIME 30 Days Qty: 30 0RF benztropine 1 mg tablet 1 mg PO BID 30 Days Qty: 60 0RF olanzapine 15 mg Tablet 15 mg PO BID 30 Days Qty: 60 0RF Changed haloperidol 10 mg tablet 10 mg PO TID 90 Days Qty: 270 0RF perphenazine 8 mg tablet 12 mg PO BID Qty: 30 0RF Discontinued ziprasidone HCl 80 mg capsule 80 mg PO BID Qty: 60 0RF Rx Instructions: give with food (meal/snack)
--- NOTE | 2024-01-12 16:38 | HO.PHP ---
Pt called at 4:30 pm to check-in if he will attend programming tomorrow. Pt did not answer, voicemail left.
--- NOTE | 2024-01-16 15:53 | HO.PHP ---
Pt called to inform he would be discharged from [facility] today due to absences and inability to attend consistently and benefit from [facility]. Pt would like to return, assured his absences were unexpected and he will be able to complete the 10 days when he comes back. Ori was encouraged to call Yanna to schedule an intake to return. Pt was able to complete a PHQ-9 over the phone. He assured he is safe. No SI and denied relapse. Pt Reports he was in short supply of 1 medication. A message was left by [facility] staff for Dr. Junior.
--- NOTE | 2024-01-16 22:23 | PM.EVENT ---
Event Note Date of Service: 01/18/24 Event Note: I spoke with patient who was being unexpectedly discharged from the program today due to insurance stating they had missed too many days. He will be returning to [facility] in 2-3 weeks. In the interim he is struggling to tolerate the Haldol due to sedation. The tablets are too difficult to be splitting and would like to proceed to with plan to swtch over to the perphenazine which he had been maintained on in the past successfully. He has found Haldol helpful particularly for stabilizing him in the past when decompensated, but perphenazine tends to be a better tolerated as a maintenance medication. He has had no further issues with or since we increased the dose last week to 30 mg Haldol. 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 Normally I would hold off making further changes until patient returns to program, however he is concerned about sedation, in terms of functioning/maintaining daily structure and sleep, (ie oversleeeping or missing doses). He is actively avoiding any alcohol ose substance. His pharmacy has advised him to seek an alternative to natrexone since they have non in stock. We agree to proceed with plan to increase topiramate ad switch over to perphenazine. WIll start at 8 mg TID and quickly titrate to 16 mg TID, will maintain only Haldol 10 mg x 2 night and then discontinue once perphenazine at 16 mg TID and will likely need the addition 16 mg to maintain 64 mg/d to maintain stability. He agrees to check in on Tuesday. I will refill all his medications in the meantime, and maintain current medication regime. Patient denies any SI, HI, AH, VH. He was disappointed about disruption to his treatment, but says he understands (ironically he says he had to miss the most recent [facility] day due to getting his [facility] reinstated) otherwise he wouldnt have been able to come to [facility]. So either way he was in a no-win situation. Rx sent to pharmacy. PLAN: start perphenazine 8 mg TID (AM, lunch,afternoon) and continue 10 mg Haldol at bedtime tomorrow increase perhenazine to 12-16 mg TID as tolerated, will conitnue Haldol 10 mg another night as tolerated continue perphenazine at 16 mg TID-QID as tolerated, continue Haldol 5-10 mg PRN and then will discontinue once Trilifon optimized decrease benztropine 1 mg from BID to QHS continue lithium 600 mg BID continue olanzapine 15 mg BID continue venlafaxine ER 225 mg qd continue clonidine 0.1 mg QID conitnue clonazepam 1 mg TID prn anxiety (takes regularly) continue naltrexone 50 mg qhs (current shortage, patient may have difficulties filling next week) increase topiramate to 50 mg qhs, continue 25 mg qAM plan to further titrate to 50mg AM/100 mg at night, if unable to fill naltrexone continue pantoprazole 40 mg qd continue metformin 500 mg BID reviewed recent routine lab work from 01/13, including HbA1c, lipid panel, lithium level, no acute findings - will revisit when patient returns to [facility] Normal EKG from 01/2023, will order EKG when patient returns will follow up with patient on Tuesday to check on cross taper off Haldol onto Trilafon then will defer further medication management to OP provider until patient returns discharge from [facility] Time Spent With Patient Time: Total time managing care of this patient today __20__ minutes.
== END 2024-01-13 23:59 | disposition home or self-care (01) ==
LOC: HO.PHPA 12:00
PROVIDERS: Visit Provider Psychiatry & Neurology Psychiatry
DX: F25.0 Schizoaffective disorder, bipolar type (principal); F41.3 Other mixed anxiety disorders; F19.10 Other psychoactive substance abuse, uncomplicated; F10.20 Alcohol dependence, uncomplicated; Z79.899 Other long term (current) drug therapy
CPT/HCPCS: 80307; 90791; 90853

== ENCOUNTER → 2024-01-13 12:00 | Outpatient (BNV) | payer OTHER, SELFPAY | PROVIDERS: Visit Provider Psychiatry & Neurology Psychiatry | DX: F25.0 Schizoaffective disorder, bipolar type (principal); F10.20 Alcohol dependence, uncomplicated; F19.10 Other psychoactive substance abuse, uncomplicated; F41.3 Other mixed anxiety disorders | CPT/HCPCS: 90792; 99214; 99499 ==

== ENCOUNTER → 2024-02-03 12:07 | Outpatient (REF) | payer OTHER, SELFPAY ==
--- NOTE | 2024-02-03 12:15 | ECG_ITS ---
Test Reason : F25.0 F43.10 Blood Pressure : / mmHG Vent. Rate : 064 BPM Atrial Rate : 064 BPM P-R Int : 190 ms QRS Dur : 100 ms QT Int : 404 ms P-R-T Axes : 044 043 041 degrees QTc Int : 416 ms Normal sinus rhythm Normal ECG When compared with ECG of 30-JAN-2023 18:04, Vent. rate has decreased BY 33 BPM Referred By: Magaly Junior Electronically Signed By:TOM CABRERA MD
[2024-02-03 12:35] LABS: MANUAL DIFF FLAG NO
[2024-02-03 13:33] LABS: Basophils Absolute Auto 0.1 X10*3/uL (0.0-0.2); Basophils Percent Auto 0.9 % (0-2); Eosinophils Absolute Auto 0.2 X10*3/uL (0.0-0.4); Eosinophils Percent Auto 2.8 % (0-4); Hematocrit 45.2 % (42.0-52.0); Hemoglobin 14.9 g/dl (14.0-18.0); Imm Gran Abs Auto 0.03 X10*3/uL (0.00-0.03); Imm Gran Pct Auto 0.6 % (0.0-0.4); Lymphocytes Absolute Auto 0.8 X10*3/uL (1.2-4.9); Lymphocytes Percent Auto 14.3 % (20-40); Mean Corpuscular Hemoglobin 30.2 pg (27.0-33.0); Mean Corpuscular Volume 91.7 fL (80.0-98.0); Mean Platelet Volume 10.6 fL (9.4-12.4); Monocytes Absolute Auto 0.7 X10*3/uL (0.1-1.2); Monocytes Percent Auto 13.3 % (2-11); Neutrophils Absolute Auto 3.7 x10*3/uL (2.0-8.3); Neutrophils Percent Auto 68.1 % (45-73); Platelet Count 206 X10*3/uL (160-400); Red Blood Count 4.93 X10*6/uL (4.60-5.80); Red Cell Distribution Width 13.2 % (11.0-16.0); White Blood Count 5.4 X10*3/uL (4.8-10.8)
[2024-02-03 13:53] LABS: Lithium 0.43 mmol/L (0.60-1.20)
[2024-02-03 14:00] LABS: Osmolality, Serum 288 mosm/kg (281-305)
[2024-02-03 14:13] LABS: Alanine Aminotransferase 32 U/L (0-40); Albumin Level 4.3 g/dL (3.5-5.0); Alkaline Phosphatase 96 U/L (39-117); Anion Gap 12 (12-20); Aspartate Amino Transferase 22 U/L (5-37); Bilirubin Total 0.4 mg/dL (0.0-1.0); Blood Urea Nitrogen 12 mg/dL (9-16); Calcium 9.2 mg/dL (8.4-10.2); Carbon Dioxide 22 mmol/L (22-29); Chloride 107 mmol/L (96-108); Estimated Glomerular Filt Rate > 60; Glucose Random 84 mg/dL (60-115); Sodium 137 mmol/L (135-145)
[2024-02-03 14:24] LABS: Appearance Urine Clear; Color Urine Yellow; Glucose Urine UA Negative (Negative); Leukocyte Esterase Urine Negative (Negative); Nitrite Urine Negative (Negative); Specific Gravity - Urine <= 1.005 (1.005-1.025); Urine Blood Negative (Negative); Urine Ketones Negative (Negative); Urine Protein Negative (Neg-Trace)
[2024-02-03 15:40] LABS: Osmolality Urine 104 mosm/kg (373-1093)
[2024-02-04 08:18] LABS: Prolactin 31.1 ng/mL (2.0-18.0)
== END ==
LOC: HO.CARD 12:07
PROVIDERS: PCP Internal Medicine; Visit Provider Psychiatry & Neurology Psychiatry
DX: F25.0 Schizoaffective disorder, bipolar type (principal); F43.10 Post-traumatic stress disorder, unspecified; Z79.899 Other long term (current) drug therapy
CPT/HCPCS: 36415; 80053; 80178; 81003; 83930; 83935; 84146; 85025; 93005

== ENCOUNTER → 2024-02-03 12:15 | Outpatient (BNV) | payer OTHER, SELFPAY | PROVIDERS: PCP Internal Medicine; Visit Provider Internal Medicine Cardiovascular Disease | DX: F25.0 Schizoaffective disorder, bipolar type (principal); F43.10 Post-traumatic stress disorder, unspecified | CPT/HCPCS: 93010 ==

== ENCOUNTER 2024-02-07 10:15 | Outpatient (RCR) | payer OTHER, SELFPAY ==
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
[2024-01-31 14:37] VITALS: BP 118/72; PULSE 80; TEMP 36.8
[2024-01-31 14:38] VITALS: BMI 41.7
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
[2024-02-01 06:47] LABS: Amphetamine Screen Urine Not Detected (Not Detect); Barbiturates, Urine Not Detected (Not Detect); Benzodiazepines Screen Urine Not Detected (Not Detect); Cannabinoid Screen Urine Not Detected (Not Detect); Cocaine Screen Urine Not Detected (Not Detect); Fentanyl, urine Not Detected (Not Detect); Opiate Screen Urine Not Detected (Not Detect); Phencyclidine Screen Urine Not Detected (Not Detect)
--- NOTE | 2024-02-02 16:41 | HO.PHP ---
Client's case has been opened and reviewed in treatment team.
--- NOTE | 2024-02-03 23:46 | P.PNPSP_ITS ---
Subjective Subjective Date of Service: 02/03/24 Reason For Visit: schizoprenia Interim History: Patient requesting to be seen by this junior underwriter. Looking for lab slip to check LFTs after recently being diagnosed w Hep C, which apparently was resolving without treatment. Paitent asking if his lithium should be rechecked, he is concerned about his level because he's constantly thristy and cant seem to quench his thirst, has been peeing a lot. He also reports some depressive symptoms that are starting to emerge and is reporting low mood, low energy, low motivation. He is also concerned about 50 lbs weight gain in the past 2 months on account of trmt with olanzapine. He is tapering off and currently at 7.5 mg for the past 4 days. He denies any reemergence of psychotic symptoms, and definitely not feeling the slightest bit manic; rather, his mood is down and is feeling sluggish. He pre sents as brighter than expected, alert and demonstrates good mentation. Denies AH, VH. Sleep variable but getting around 6-8 hours after some delayed onset. He sometimes naps for 30-60 min during the day. Appetite is variable. Energy low. Denies any SI, intention, urge or plan. He is agreeable to stopping the olanzapine after today. He continues with Geodon 160 mg/d and Haldol 30 mg/d. No symptoms/signs of EPS. Patient has a long history of high dose antipsychotic treatment and denies any history of EPS. He continues on Cogentin BID for the time being. He denies any cravings and feels the topiramate has been helpful with alcohol cravings. He was considering asking for Chantix for smoking cessation, but after some discussion around adding on a low dose antidepressant to help with depression. Patient agrees to trial of Wellbutrin SR (over mirtazpine, and other options) to address low mood/energy/motivation/concentration and is hoping it helps with reducing appetite and nicotine cravings. He reportedly was on Wellbutrin a very long time ago and says it was well-tolerated. Patient given lab slip to check LFTs as well as prolactin given current sx (fatigue, depression) on high dose neuroleptics (particularly Haldol) to rule out elevated prolactin. Will also check urine/serum osmolality levels given excessive thirst, polyuria on lithium concerning for Diabetes insipidus, however last serum Na on the low-normal end so unlikely DI but nonetheless will check seeing as Li puts him at risk of developing DI. Will also recheck creatinine Medication Compliance: Yes Side effects from medications: No Attending Groups: Yes Review of Systems Acute medical concerns: Yes as noted above Mental Status Exam Mental Status Exam Narrative: Alert, oriented, in no acute distress. Calm, cooperative, engaged. No psychomotor agitation or neurovegetative retardation. Eye contact maintained. Mood anxious, affect variable, mood congruent. Speech normal. Thought process linear, coherent. Thought content related to stressors, denies any helplessness, hopelessness or SI.? No aggressive ideation or HI. No paranoia or delusional content elicited. Denies any perceptual disturbance and there is no evidence of psychosis at this time. Insight and judgment fair-good. Diagnostics Vital Signs (24Hr): BMI result Body Mass Index 41.7 Assessment & Plan Assessment & Plan (1) Schizoaffective disorder, bipolar type: Status: Acute Code(s): F25.0 - Schizoaffective disorder, bipolar type (2) Other mixed anxiety disorders: Status: Acute Code(s): F41.3 - Other mixed anxiety disorders (3) Alcohol dependence, uncomplicated: Status: Acute Code(s): F10.20 - Alcohol dependence, uncomplicated (4) Cannabis use disorder, mild, abuse: Status: Acute Code(s): F12.10 - Cannabis abuse, uncomplicated Plan start Wellbutrin SR 100 mg qAM, patient aware to hold for any signs of overactivation/emerging mood instability or psychosis continue lithium 600 mg BID (pt aware to avoid NSAIDs and stay hydrated) will consider lowering by 150-300 mg continue on ziprasidone 80 mg BID with meals, may consider further titration beyond 160 mg/d (ref ZEBRAS study) tapered off olanzapine over the weekend continue Haldol 10 mg TID continue benztropine 1 mg BID continue metformin 250 mg TID for weight continue venlafaxine ER 225 mg qd continue naltrexone 50 mg qhs continue topiramate 50 mg qAM continue topiramate 100 mg qhs discontinued: trazodone, olanzapine patient given lab slip to check LFTs as well as prolactin given current sx on high dose neuroleptics (particularly Haldol) and urine/serum osmolality levels given current sx on lithium concerning for DI, however last serum Na on the low-normal end so unlikely reviewed EKG from 01/31/24: VR 97 bpm with QTc 429 ms normal vs past UDS from 01/31/24 negative for all substances continue to monitor as per protocol Patient educated on: diagnosis, medication risk/benefits and substance abuse Informed Consent: understands Reason for contiued partial hosp. stay Substantial Risk for: rapid decompensation and med/psych decompensation Certification I certify that partial hospital treatment is medically necessary due to the symptoms and problems resulting from the patient's mental illness and the failure to treat the patient at the partial hospital level of care would likely result in the patient requiring inpatient psychiatric care which could not be prevented at a less intensive level of care. Total time managing care of this patient today _30___ minutes. Discharge Plan Discharge Attending provider: Magaly Junior Medications: New ziprasidone HCl 80 mg capsule 80 mg PO BID 15 Days Qty: 30 0RF Rx Instructions: give with food (meal/snack) metformin 500 mg tablet 250 mg PO TID 30 Days Qty: 45 0RF bupropion HCl 100 mg tablet sustained-release 12 hr 100 mg PO QAM Qty: 30 0RF Continued Pt Own (Descovy 200-25 Mg) 1 tab PO DAILY Qty: 0 0RF benztropine 1 mg tablet 1 mg PO BID 30 Days Qty: 60 0RF haloperidol 10 mg tablet 10 mg PO TID 90 Days Qty: 270 0RF clonidine HCl 0.1 mg tablet 0.1 mg PO TID PRN (Reason: anxiety) 30 Days Qty: 90 0RF venlafaxine 75 mg Tablet 75 mg PO DAILY 30 Days Qty: 30 0RF naltrexone 50 mg tablet 50 mg PO .QHS 30 Days Qty: 30 0RF Patient Comments: Nationwide shortage, unable to get. clonazepam 1 mg Tablet 1 mg PO TID 15 Days Qty: 45 1RF venlafaxine 150 mg Capsule,Extended Release 24hr 150 mg PO DAILY 30 Days Qty: 30 0RF lithium carbonate 600 mg capsule 600 mg PO BID 30 Days Qty: 60 0RF pantoprazole 40 mg tablet,delayed release (DR/EC) 40 mg PO DAILY 30 Days Qty: 30 0RF topiramate 50 mg tablet 50 mg PO QAM 30 Days Qty: 30 0RF topiramate 100 mg tablet 100 mg PO BEDTIME 30 Days Qty: 30 0RF Changed olanzapine 15 mg tablet 7.5 mg PO BEDTIME Qty: 1 0RF Patient Comments: Patient reports he is titrating off this medication d/t weight gain. Dr Junior is aware. No Action ziprasidone HCl 80 mg capsule 80 mg PO BID Patient Comments: Patient stated he restarted this medication and is tapering off the Zyprexa. Phamracy stated Geodon was discontinued 12/29/23. Reviewed with Dr Junior and patient is to continue the medication. trazodone 150 mg tablet 150 mg PO BEDTIME 30 Days Qty: 30 0RF
--- NOTE | 2024-02-06 20:20 | HO.PHPPROGNO ---
Subjective Subjective Date of Service: 02/06/24 Reason For Visit: schizoprenia Interim History: Patient reports events over weekend where he had difficulty at one point, brushing his teeth, His arm had uncontrolled spasms and knocking toothbrish all over mouth and face. He denies noticing any DTs, but upon inquiry did notice unusual tongue movements, tongue thrusting a moment at a time. He stopped the Haldol but continued on Geodon. He has not had any unusual movements since, but is noticing reemergence of AH and voices and visions coming out of the wall which is distressing. His mood is depressed, transient hopeless feeling, but denies any SI, urgem intention or plan. He is open to stopping the Geodon and restarting on the Haldol. He has been on Seroquel which was okay but has caused weight gain. He is open to starting on Latuda. Medication Compliance: No Side effects from medications: Yes Attending Groups: Yes Review of Systems Acute medical concerns: No Mental Status Exam Mental Status Exam Narrative: Alert, oriented, in no acute distress. Calm, cooperative, engaged. No psychomotor agitation or neurovegetative retardation. Eye contact maintained. Mood anxious, affect variable, mood congruent. Speech normal. Thought process linear, coherent. Thought content related to stressors, denies any helplessness, hopelessness or SI.? No aggressive ideation or HI. No paranoia or delusional content elicited. Denies any perceptual disturbance and there is no evidence of psychosis at this time. Insight and judgment fair-good. Diagnostics Vital Signs (24Hr): BMI result Body Mass Index 41.7 Imaging Radiology Impressions: Telehealth Location of provider rendering services: other (private office) Location of patient: other ([facility]) Patient Identification confirmed using: Name, : Yes Telehealth method: video Patient verbally consented to treatment: Yes Minutes spent on Phone/Video with Pt.: 30 Assessment & Plan Assessment & Plan (1) Schizoaffective disorder, bipolar type: Status: Acute Code(s): F25.0 - Schizoaffective disorder, bipolar type (2) Alcohol dependence, uncomplicated: Status: Acute Code(s): F10.20 - Alcohol dependence, uncomplicated (3) Cannabis use disorder, mild, abuse: Status: Acute Code(s): F12.10 - Cannabis abuse, uncomplicated (4) Other mixed anxiety disorders: Status: Acute Code(s): F41.3 - Other mixed anxiety disorders Plan discontinue ziprasidone restart Haldol 10 mg BID today, if tolerated, then return to TID tomorrow continue Cogentin 1 mg BID start Latuda 40 mg qd with evening meal start mirtazapine 15 mg qhs PRN sleep(alternate with Ambien to mitigate weight gain from mirtazapine, or reliance on zolpidem) start zolpidem 5 mg qhs PRN sleep continue lithium 600 mg BID (pt aware to avoid NSAIDs and stay hydrated) will consider lowering by 150-300 mg continue metformin 250 mg TID for weight continue venlafaxine ER 225 mg qd continue naltrexone 50 mg qhs continue topiramate 50 mg qAM continue topiramate 100 mg qhs discontinued: trazodone, olanzapine, bupropion, ziprasidone reviewed lab work from 02/02 with patient included moderate elevation in prolactin level ~31. pt has previously been trted with ABilify but unfortuantely did not find helpful, will monitor other lab work including low urine/serum osmolality levels (dilute), low-norm Na, so does not appear to be DI (on [place]), findings support primary polydypsia reviewed EKG from 01/31/24: VR 97 bpm with QTc 429 ms normal vs past UDS from 01/31/24 negative for all substances continue to monitor as per protocol Patient educated on: diagnosis, medication risk/benefits and other Informed Consent: understands Reason for contiued partial hosp. stay Substantial Risk for: inability to function, rapid decompensation and med/psych decompensation Certification I certify that partial hospital treatment is medically necessary due to the symptoms and problems resulting from the patient's mental illness and the failure to treat the patient at the partial hospital level of care would likely result in the patient requiring inpatient psychiatric care which could not be prevented at a less intensive level of care. Telehealth Telehealth Location of provider rendering services: other (private office) Location of patient: other ([facility]) Patient Identification confirmed using: Name, : Yes Telehealth method: video Patient verbally consented to treatment: Yes Total time managing care of this patient today ____ minutes. Discharge Plan Discharge Attending provider: Magaly Junior Additional Instructions: Ori has an OP therapist, Benson Gutierrez, in which he normally meets with him on Tuesday at 9 AM. Ori has a med provider, Leo Paul, through [facility], in which his next appointment is February 28, 2024 at 9 AM. Medications: New metformin 500 mg tablet 250 mg PO TID 30 Days Qty: 45 0RF mirtazapine 15 mg tablet 15 mg PO BEDTIME Qty: 20 0RF lurasidone 120 mg tablet 120 mg PO QPM 30 Days Qty: 30 0RF Rx Instructions: must administer with food (at least 350 calories) topiramate 100 mg tablet 100 mg PO BID 30 Days Qty: 60 0RF naltrexone 50 mg tablet 50 mg PO .QHS 30 Days Qty: 30 0RF Continued Pt Own (Descovy 200-25 Mg) 1 tab PO DAILY Qty: 0 0RF benztropine 1 mg tablet 1 mg PO BID 30 Days Qty: 60 0RF zolpidem 5 mg tablet 5 mg PO BEDTIME PRN (Reason: sleep) Qty: 20 0RF haloperidol 10 mg tablet 10 mg PO TID 90 Days Qty: 270 0RF clonidine HCl 0.1 mg tablet 0.1 mg PO TID PRN (Reason: anxiety) 30 Days Qty: 90 0RF venlafaxine 75 mg Tablet 75 mg PO DAILY 30 Days Qty: 30 0RF clonazepam 1 mg Tablet 1 mg PO TID 15 Days Qty: 45 1RF venlafaxine 150 mg Capsule,Extended Release 24hr 150 mg PO DAILY 30 Days Qty: 30 0RF lithium carbonate 600 mg capsule 600 mg PO BID 30 Days Qty: 60 0RF pantoprazole 40 mg tablet,delayed release (DR/EC) 40 mg PO DAILY 30 Days Qty: 30 0RF Discontinued olanzapine 15 mg tablet 15 mg PO BEDTIME Patient Comments: Patient reports he is titrating off this medication d/t weight gain. Dr Junior is aware. ziprasidone HCl 80 mg capsule 80 mg PO BID Patient Comments: Patient stated he restarted this medication and is tapering off the Zyprexa. Phamracy stated Geodon was discontinued 12/29/23. Reviewed with Dr Junior and patient is to continue the medication. naltrexone 50 mg tablet 50 mg PO .QHS 30 Days Qty: 30 0RF Patient Comments: Nationwide shortage, unable to get. trazodone 150 mg tablet 150 mg PO BEDTIME 30 Days Qty: 30 0RF topiramate 50 mg tablet 50 mg PO QAM 30 Days Qty: 30 0RF topiramate 100 mg tablet 100 mg PO BEDTIME 30 Days Qty: 30 0RF Stand Alone Forms: Patient Portal Discharge page Print Language: Ukrainian
--- NOTE | 2024-02-08 08:13 | HO.PHP ---
PHP Admin, Yanna, disclosed that Ori will not be in today due to needing emergency tooth extraction. Yanna disclosed that he is safe and will be here tomorrow.
--- NOTE | 2024-02-09 09:28 | HO.PHP ---
PHP staff member followed up with Ori in regards to his attendance in program and encouraged him to show up to program tomorrow. PHP staff member disclosed if he is unable to make it to program tomorrow we will have to discharge him from the program. Ori was aware of this and shared how he had emergency tooth extraction. Ori shared the sx's he is experiencing from that tooth extraction but plans on being in program tomorrow. [facility] staff was receptive and assessed safety. Ori expressed no safety concerns around SI, plan or intent.
--- NOTE | 2024-02-10 23:58 | HO.PHPPROGNO ---
Subjective Subjective Date of Service: 02/10/24 Reason For Visit: schizoprenia Interim History: I spoke with patient over the phone today. Patient is out sick again and will need to be discharged from the program due to feeling unwell. Patient reports having had dental surgery due to a tooth abscess, on antibiotics. He had 2 of his molars pulled and is on antibiotics. He has been managing pain with Tylenol, scant IB. He tries to avoid taking ibuprofen since on lithium. He is aware that he is being discharged and expresses understanding, noting that he is just not feeling well enough to come in but otherwise feels he is doing better and expressed appreciation to program. He reports mood is still low, and would like to increase dose of Latuda to 120 mg as reportedly he has been treated in the past at that dose which was effective and well-tolerated. He has been at 80 mg daily and is agreeable to increasing dose over the weekend. Denies any adverse effects. He has been medicaiton compliant and overall reports improvement in functioning since admission. He denies any further AH or psychotic symptoms noted since he got back on the Haldol. No further TD or other EPS sx noted since that one occasion when on Geodon. Denies any issues with stiffness or abnormal movements anywahere including in face, neck, shoulders. Overall he reports he is feeling stable.? Denies any hopelessness or SI. Denies thoughts of harming self or others at this time. Denies any aggressive ideation or HI. Sleep, appetite, energy stable. He requests refills on some of the medications and reports having an upcoming appointment with his OP psych provider in 2 weeks. Medication Compliance: Yes Side effects from medications: No Attending Groups: Yes Review of Systems Acute medical concerns: Yes as noted above Mental Status Exam Mental Status Exam Narrative: Alert, oriented, in no acute distress. Agreeable. Mood stable. Normal speech. Goal-directed, future-oriented, denies any helplessness, hopelessness or SI or HI. No evidence of psychosis. Insight and judgment fair-good. Diagnostics Vital Signs (24Hr): BMI result Body Mass Index 41.7 Assessment & Plan Assessment & Plan (1) Schizoaffective disorder, bipolar type: Status: Acute Code(s): F25.0 - Schizoaffective disorder, bipolar type (2) Other mixed anxiety disorders: Status: Acute Code(s): F41.3 - Other mixed anxiety disorders (3) Cannabis use disorder, mild, abuse: Status: Acute Code(s): F12.10 - Cannabis abuse, uncomplicated (4) Alcohol dependence, uncomplicated: Status: Acute Code(s): F10.20 - Alcohol dependence, uncomplicated Plan Discharge from [facility] increase dose of Latuda to 120 mg/d (patient was previously treated at 120 mg Latuda in the past) increase topiramate to 200 mg/d (split 100 bid, or 50/150 if better tolerated) continue Haldol 10 mg TID continue lithium 600 mg BID (pt aware to avoid NSAIDs and stay hydrated) continue Haldol 10 mg TID continue benztropine 1 mg BID continue metformin 250 mg TID for weight continue venlafaxine ER 225 mg qd continue naltrexone 50 mg qhs discontinued: trazodone, olanzapine, ziprasidone of note, olanzapine (AE: weight gain, otherwise highly effective in this pt hernesto for psychosis, elena, severe depression) ziprasidone (caused TD in combination with other high potency NL) will follow up on changes next week 02/13 by phone thereafter, will defer further medication management to outpatient provider Dr. Espino on 02/28/24 Refills sent to pharmacy Patient educated on: diagnosis, medication risk/benefits and substance abuse Informed Consent: understands Reason for contiued partial hosp. stay Substantial Risk for: stable for discharge Certification I certify that partial hospital treatment is medically necessary due to the symptoms and problems resulting from the patient's mental illness and the failure to treat the patient at the partial hospital level of care would likely result in the patient requiring inpatient psychiatric care which could not be prevented at a less intensive level of care. Total time managing care of this patient today _20___ minutes. Discharge Plan Discharge Attending provider: Magaly Junior Additional Instructions: Ori has an OP therapist, Benson Gutierrez, in which he normally meets with him on Tuesday at 9 AM. Ori has a med provider, Leo Paul, through [facility], in which his next appointment is February 28, 2024 at 9 AM. Medications: New metformin 500 mg tablet 250 mg PO TID 30 Days Qty: 45 0RF mirtazapine 15 mg tablet 15 mg PO BEDTIME Qty: 20 0RF lurasidone 120 mg tablet 120 mg PO QPM 30 Days Qty: 30 0RF Rx Instructions: must administer with food (at least 350 calories) topiramate 100 mg tablet 100 mg PO BID 30 Days Qty: 60 0RF naltrexone 50 mg tablet 50 mg PO .QHS 30 Days Qty: 30 0RF Continued Pt Own (Descovy 200-25 Mg) 1 tab PO DAILY Qty: 0 0RF benztropine 1 mg tablet 1 mg PO BID 30 Days Qty: 60 0RF zolpidem 5 mg tablet 5 mg PO BEDTIME PRN (Reason: sleep) Qty: 20 0RF haloperidol 10 mg tablet 10 mg PO TID 90 Days Qty: 270 0RF clonidine HCl 0.1 mg tablet 0.1 mg PO TID PRN (Reason: anxiety) 30 Days Qty: 90 0RF venlafaxine 75 mg Tablet 75 mg PO DAILY 30 Days Qty: 30 0RF clonazepam 1 mg Tablet 1 mg PO TID 15 Days Qty: 45 1RF venlafaxine 150 mg Capsule,Extended Release 24hr 150 mg PO DAILY 30 Days Qty: 30 0RF lithium carbonate 600 mg capsule 600 mg PO BID 30 Days Qty: 60 0RF pantoprazole 40 mg tablet,delayed release (DR/EC) 40 mg PO DAILY 30 Days Qty: 30 0RF Discontinued olanzapine 15 mg tablet 15 mg PO BEDTIME Patient Comments: Patient reports he is titrating off this medication d/t weight gain. Dr Junior is aware. ziprasidone HCl 80 mg capsule 80 mg PO BID Patient Comments: Patient stated he restarted this medication and is tapering off the Zyprexa. Phamracy stated Geodon was discontinued 12/29/23. Reviewed with Dr Junior and patient is to continue the medication. naltrexone 50 mg tablet 50 mg PO .QHS 30 Days Qty: 30 0RF Patient Comments: Nationwide shortage, unable to get. trazodone 150 mg tablet 150 mg PO BEDTIME 30 Days Qty: 30 0RF topiramate 50 mg tablet 50 mg PO QAM 30 Days Qty: 30 0RF topiramate 100 mg tablet 100 mg PO BEDTIME 30 Days Qty: 30 0RF Stand Alone Forms: Patient Portal Discharge page
== END 2024-02-07 23:59 | disposition home or self-care (01) ==
LOC: HO.PHPA 10:15
PROVIDERS: Visit Provider Psychiatry & Neurology Psychiatry
DX: F25.0 Schizoaffective disorder, bipolar type (principal); F41.3 Other mixed anxiety disorders; F10.20 Alcohol dependence, uncomplicated; F12.10 Cannabis abuse, uncomplicated; Z79.899 Other long term (current) drug therapy
CPT/HCPCS: 80307; 90791; 90853

== ENCOUNTER 2024-04-01 07:35 | Inpatient (IN) | payer OTHER, SELFPAY ==
[2024-04-01 07:50] VITALS: BP 138/68; PULSE 104; O2SAT 96
[2024-04-01 08:06] VITALS: BP 135/81; PULSE 112; RESP 18; TEMP 35.6; O2SAT 95; BMI 38.4
[2024-04-01 08:10] VITALS: BP 135/81; PULSE 112; RESP 18; TEMP 35.6; O2SAT 95
--- OUTSIDE RECORDS SUMMARY | 2024-04-01 08:20 | XMS_ITS | Continuity of Care Document ---
Author Organization [facility] Address [address] [place] [id number]- Care Team Providers Care Tnt Powder Worker Name Role Phone David Garcia DO Primary Care Physician Encounter [facility] [place] Date(s): 01/10/24 - 02/09/24 [facility] [address] [place] [id number] Allergies, Adverse Reactions, Alerts Substance Reaction Severity Status Depakote Active SEROquel Active Immunizations Given and Recorded Vaccine Date Status Refusal Reason influenza virus vaccine, inactivated 1 01/25/19 Gi temi influenza virus vaccine, inactivated 03/10/16 Give n tetanus/diphtheria/pertussis, acel(Tdap) 02/06/17 Given tetanus/diphtheria/pertussis, acel(Tdap) 03/26/16 Given 1Early/Late Reason: Med Not Available Medications Abilify 30 mg oral tablet 1 tablet = 30 mg, By Mouth, Daily, # 30 tablet, 1 Refills, Maintenance, 11/10/22 9:55:00 EST, Tablet, [id number], Partial fill upon patient request if the prescription is for a schedule II opioid drug., 182.8, cm, 06/11/22 16:41:00 EDT, Height Start Date: 11/10/22 Status: Ordered Abilify Maintena 400 mg intramuscular injection, extended release = 400 mg, Intramuscular, Every 28 days, 0 Refills, Maintenance, 01/29/22 9:46:00 EST, Partial fill upon patient request if the prescription is for a schedule II opioid drug. Start Date: 01/29/22 Status: Ordered benztropine 1 mg oral tablet 1 mg, 1, tablet, By Mouth, 2 times a day, # 60 tablet, Refills 1, Tot. Refills 1, Maintenance, 12/28/22 14:54:00 EST, Route to Pharmacy Electronically, [facility]/pharmacy #[id number], Partial fill upon patient request if the prescription is for a schedule II opio... Start Date: 12/28/22 Status: Ordered benztropine 1 mg oral tablet 1 mg, 1, tablet, By Mouth, 2 times a day, Refills 0, Maintenance, 01/29/22 9:48:00 EST, Partial fill upon patient request if the prescription is for a schedule II opioid drug. Start Date: 01/29/22 Status: Ordered buPROPion 150 mg/24 hours (XL) oral tablet, extended release 1 tablet = 150 mg, By Mouth, Every 24 hours, Ins requires 300mg and 150mg. 11/29/22 script inactivated by provider in error., # 30 tablet, 1 Refills, Maintenance, 01/11/23 15:09:00 EST, ER Tablet, [facility]/pharmacy #[id number], Partial fill upon patient request i... Start Date: 01/11/23 Status: Ordered buPROPion 300 mg/24 hours (XL) oral tablet, extended release 1 tablet = 300 mg, By Mouth, Daily, Ins requires 150mg and 300mg. TDD 450mg daily., # 30 tablet, 1 Refills, Maintenance, 01/11/23 15:09:00 EST, ER Tablet, [facility]/pharmacy #[id number], Partial fill upon patient request if the prescription is for a schedule II o... Start Date: 01/11/23 Status: Ordered clonazePAM 1 mg oral tablet 1 tablet = 1 mg, By Mouth, 3 times a day, PRN Anxiety, Last filled: 02/08/23 for 6 days No early refill, # 90 tablet, 0 Refills, Maintenance, 02/15/23 11:26:00 EDT, Tablet, [facility]/pharmacy #[id number], Partialfill upon patient request if the prescription is f... Start Date: 02/15/23 Status: Ordered clonazePAM 1 mg oral tablet 0 Refills, Maintenance, 12/23/23 8:16:00 EST, Partial fill upon patient request if the prescriptionis for a schedule II opioid drug. Start Date: 12/23/23 Status: Ordered clozapine 25 mg oral tablet See Instructions, 1 tablet By Mouth daily for 3 days; day 4 to day 6 take 2 tablet; then take 3 tablets, # 70 tablet, 0 Refills, Maintenance, 01/20/23 18:46:00 EST, [facility]/pharmacy #[id number], Partial fill upon patient request if the prescription is for a sc... Start Date: 01/20/23 Status: Ordered docusate sodium 100 mg oral capsule 100 mg, 1, capsule, By Mouth, 2 times a day, PRN, Refills 0, Maintenance, as needed for constipation, 02/05/22 13:36:00 EDT, Partial fill upon patient request if the prescription is for a schedule IIopioid drug. Start Date: 02/05/22 Status: Ordered Effexor By Mouth, 0 Refills, Maintenance, 12/23/23 8:17:00 EST, Partial fill upon patient request if the prescription is for a schedule II opioid drug. Start Date: 12/23/23 Status: Ordered emtricitabine-tenofovir alafenamide 200 mg-25 mg oral tablet 1 tablet, By Mouth, Daily, # 30 tablet, 2 Refills, Maintenance, 12/23/23 9:05:00 EST, Tablet, [facility]/pharmacy #[id number], Partial fill upon patient request if the prescription is for a schedule II opioid drug., 1 tablet By Mouth Daily, 183, cm, 12/23/23 8:10:... Start Date: 12/23/23 Status: Ordered gemfibrozil 600 mg oral tablet 600 mg, 1, tablet, By Mouth, 2 times a day before breakfast and dinne, Refills 0, Maintenance, 01/29/22 9:47:00 EST, Partial fill upon patient request if the prescription is for a schedule II opioid drug. Start Date: 01/29/22 Status: Ordered haloperidol 10 mg oral tablet 10 mg, 1, tablet, By Mouth, 3 times a day, # 90 tablet, Refills 1, Tot. Refills 1, Maintenance, 01/09/23 9:56:00 EST, Route to Pharmacy Electronically, [facility]/pharmacy #[id number], Partial fill upon patient request if the prescription is for a schedule II opio... Start Date: 01/09/23 Stop Date: 03/10/23 Status: Ordered KlonoPIN 1 mg oral tablet 1 tablet = 1 mg, By Mouth, 2 times a day, may take an additional 1mg PRN, 0 Refills, Maintenance, 01/29/22 9:47:00 EST, Partial fill upon patient request if the prescription is for a schedule II opioid drug. Start Date: 01/29/22 Status: Ordered lamotrigine 100 mg oral tablet 100 mg, 1, tablet, By Mouth, Daily in AM, Continue 150 mg in AM = 250 mg daily, # 30 tablet, Refills 0, Tot. Refills 0, Maintenance, 01/18/23 9:16:00 EST, Route to Pharmacy Electronically, [facility]/pharmacy #[id number], Partial fill upon patient request if the p... Start Date: 01/18/23 Status: Ordered lamotrigine 150 mg oral tablet 1 tablet = 150 mg, By Mouth, Daily, # 30 tablet, 1 Refills, Maintenance, 12/28/22 14:58:00 EST, [facility]/pharmacy #[id number], Partial fill upon patient request if the prescription is for a schedule II opioid drug., 182.8, cm, 06/11/22 16:41:00 EDT, Height Start Date: 12/28/22 Status: Ordered lamotrigine 150 mg oral tablet 1 tablet = 150 mg, By Mouth, Daily, 0 Refills, Maintenance, 01/29/22 9:47:00 EST, Partial fill uponpatient request if the prescription is for a schedule II opioid drug. Start Date: 01/29/22 Status: Ordered Latuda 120 mg oral tablet 1 tablet = 120 mg, By Mouth, Daily at supper, 0 Refills, Maintenance, 01/29/22 9:47:00 EST, Partialfill upon patient request if the prescription is for a schedule II opioid drug. Start Date: 01/29/22 Status: Ordered lithium 600 mg oral capsule 0 Refills, Maintenance, 12/23/23 8:16:00 EST, Partial fill upon patient request if the prescriptionis for a schedule II opioid drug. Start Date: 12/23/23 Status: Ordered Lybalvi 20 mg-10 mg oral tablet 1 tablet, By Mouth, Daily, # 30 tablet, 1 Refills, Maintenance, 11/10/22 9:58:00 EST, [id number], Partial fill upon patient request if the prescription is for a schedule II opioid drug., 1 tablet By Mouth Daily, 182.8, cm, 06/11/22 16:41:00 ED... Start Date: 11/10/22 Status: Ordered Metformin By Mouth, 0 Refills, Maintenance, 12/23/23 8:17:00 EST, Partial fill upon patient request if the prescription is for a schedule II opioid drug. Start Date: 12/23/23 Status: Ordered pantoprazole 40 mg oral delayed release tablet 1 tablet = 40 mg, By Mouth, Daily, 0 Refills, Maintenance, 01/29/22 9:49:00 EST Start Date: 01/29/22 Status: Ordered perphenazine 8 mg oral tablet 8 mg, 1, tablet, By Mouth, 2 times a day, # 60 tablet, Refills 0, Tot. Refills 0, Maintenance, 01/10/23 14:57:00 EST, Route to Pharmacy Electronically, [facility]/pharmacy #[id number], Partial fill upon patient request if the prescription is for a schedule II opio... Start Date: 01/10/23 Status: Ordered propranolol 20 mg oral tablet 20 mg, 1, tablet, By Mouth, 3 times a day, Refills 0, Maintenance, 01/29/22 9:49:00 EST, Partial fill upon patient request if the prescription is for a schedule II opioid drug. Start Date: 01/29/22 Status: Ordered PROzac 40 mg oral capsule 2 capsule = 80 mg, By Mouth, Daily, 0 Refills, Maintenance, 01/29/22 9:46:00 EST, Partial fill uponpatient request if the prescription is for a schedule II opioid drug. Start Date: 01/29/22 Status: Ordered traZODone 50 mg oral tablet 50 mg, 1, tablet, By Mouth, Daily at bedtime, PRN, Please take one 50mg tablet at bedtime as neededfor insomnia. If the first dose 50mg tablet is ineffective can take one additional 50mg tablet as needed for insomnia., # 10 tablet, Refills 0, Tot. R... Start Date: 01/20/23 Stop Date: 01/25/23 Status: Ordered Problem List Condition Confirmation Course Effective Dates Status Health Status Informant Constipation Confirmed Active GERD (gastroesophageal reflux disease) Confirmed Active History of tonsillectomy Confirmed Active Hyperlipidemia Confirmed Active Hypertension Confirmed Active Hypertriglyceridemia Confirmed Active Morbid obesity Confirmed Active Nicotine dependence Confirmed Active Severe obesity (BMI 35.0-39.9) with comorbidity Confirmed Active Social History Social History Type Response Smoking Status 10 or more cigarette s (1/2 pack or more)/day in last 30 days; Interested in cessation: No entered on: 01/29/22 Sex Patient Care team information Care Team Personnel Name: David Garcia DO Position: [facility] Physician - Primary Care Member Role: PCP Address: Address: [address] [place] [address] Name: Derian Patterson RN Position: [facility] RN Member Role: Primary Care Nurse Name: Maria Del Carmen Randolph RN Position: [facility] RN Member Role: Primary Care Nurse Name: Fe Dueñas MA Position: [facility] RN Member Role: Primary Care Nurse Name: Susannah Godoy RN Position: [facility] ED RN W/OE and Tasks Member Role: Primary Care Nurse Name: Regan Negro RN Position: [facility] SN RN Member Role: Primary Care Nurse Care Team Related Persons Name: JAREK WHITESIDE Address: home [address] [place] [id number] Name: COLETTE WHITESIDE Address: home [address] [place] [id number]
--- OUTSIDE RECORDS SUMMARY | 2024-04-01 08:20 | XMS_ITS | Continuity of Care Document ---
Author Organization [facility] ter Address [address] [place] [address]- Care Team Providers Care Rv Parts And Service Director Name Role Phone David Garcia DO Primary Care Physician Encounter [facility] [place] Date(s): 06/10/22 - 06/11/[address] [address]- Discharge Disposition: Transfer to [facility] Facility Attending Physician: Chito Nevarez MD Admitting Physician: Chito Nevarez MD Referring Physician: Not on Staff, Referring MD Allergies, Adverse Reactions, Alerts Substance Reaction Severity Status Depakote Active SEROquel Active Immunizations Given and Recorded Vaccine Date Status Refusal Reason influenza virus vaccine, inactivated 1 01/25/19 Gi temi influenza virus vaccine, inactivated 03/10/16 Give n tetanus/diphtheria/pertussis, acel(Tdap) 02/06/17 Given tetanus/diphtheria/pertussis, acel(Tdap) 03/26/16 Given Not Given Vaccine Date Status Refusal Reason pneumococcal 23-valent vaccine 01/04/18 Not Given Patient Refuses pneumococcal 23-valent vaccine 03/18/17 Not Given Patient Refuses 1Early/Late Reason: Med Not Available Medications Abilify Maintena 400 mg intramuscular injection, extended [...] opioid drug. Start Date: 01/29/22 Status: Ordered docusate sodium 100 mg oral capsule 100 mg, 1, capsule, By Mouth, 2 times a day, PRN, Refills 0, Maintenance, as needed for constipation, 02/05/22 13:36:00 EDT, Partial fill upon patient request if the prescription is for a schedule IIopioid drug. Start Date: 02/05/22 Status: Ordered emtricitabine-tenofovir alafenamide 200 mg-25 mg oral tablet 1 tablet, By Mouth, Daily, 0 Refills, Maintenance, 01/29/22 9:48:00 EST, Partial fill upon patient request if the prescription is for a schedule II opioid drug. Start Date: 01/29/22 Status: Ordered gemfibrozil 600 mg oral tablet 600 mg, 1, tablet, By Mouth, 2 times a day before breakfast and dinne, Refills 0, Maintenance, 01/29/22 9:47:00 EST, Partial fill upon patient request if the prescription is for a schedule II opioid drug. Start Date: 01/29/22 Status: Ordered KlonoPIN 1 mg oral tablet 1 tablet = 1 mg, By Mouth, 2 times a day, may take an additional 1mg PRN, 0 Refills, Maintenance, 01/29/22 9:47:00 EST, Partial fill upon patient request if the prescription is for a schedule II opioid drug. Start Date: 01/29/22 Status: Ordered lamotrigine 150 mg oral tablet [...] opioid drug. Start Date: 01/29/22 Status: Ordered pantoprazole 40 mg oral delayed release tablet 1 tablet = 40 mg, By Mouth, Daily, 0 Refills, Maintenance, 01/29/22 9:49:00 EST Start Date: 01/29/22 Status: Ordered propranolol 20 mg oral tablet [...] opioid drug. Start Date: 01/29/22 Status: Ordered ZyPREXA 20 mg oral tablet 1 tablet = 20 mg, By Mouth, Daily at bedtime, 0 Refills, Maintenance, 02/02/22 13:12:00 EDT, Partial fill upon patient request if the prescription is for a schedule II opioid drug. Start Date: 02/02/22 Status: Ordered Problem List Condition Effective Dates Status Health Status Inform ant Constipation(Confirmed) Active GERD (gastroesophageal reflu x disease)(Confirmed) Active History of tonsillectomy(Confirmed) Active Hyperlipidemia(Confirmed) Active Hypertension(Confirmed) Active Hypertriglyceridemia(Confirmed) Active Morbid obesity(Confirmed) Active Nicotine dependence(Confirmed) Active Obese class I(Confirmed) Active Vital Signs Most recent to oldest [Reference Range]: 1 2 3 Height 182.8 cm (06/11/22 2:10 PM) 182.8 cm (06/11/22 6:27 AM) 182.8 cm (06/11/22 6:26 AM) Weight 106.6 kg (06/11/22 2:10 PM) 106.6 kg (06/11/22 6:27 AM) 106.6 kg (06/11/22 6:26 AM) Oxygen Saturation [94-100 %] 98 % (06/11/22 2:10 PM) 100 % (06/11/22 6:27 AM) 98 % (06/11/22 6:26 AM) Pulse Rate [55-90 bpm] 80 bpm (06/11/22 2:10 PM) 81 bpm (06/11/22 6:27 AM) 67 bpm (06/11/22 6:26 AM) Body Mass Index [18.5-24.99] 31.9 *>HHI* (06/11/22 2:10 PM) 31.9 *>HHI* (06/11/22 6:27 AM) 31.9 *>HHI* (06/11/22 6:26 AM) Blood Pressure [90-138/55-84 mm Hg] 118/74mm Hg (06/11/22 2:10 PM) 128/69mm Hg (06/11/22 6:27 AM) 131/64mm Hg (06/11/22 6:26 AM) Respiratory Rate [16-30 br/min] 16 br/min (06/11/22 2:10 PM) 16 br/min (06/11/22 6:27 AM) 16 br/min (06/11/22 6:26 AM) Temperature [96.8-100.4 DegF] 98.5 DegF (06/11/22 2:10 PM) 98.2 DegF (06/11/22 6:27 AM) 97.4 DegF (06/11/22 6:26 AM) Mode of Delivery (Oxygen) Room air (06/11/22 2:10 PM) Room air (06/11/22 6:27 AM) Room air (06/11/22 6:26 AM) Blood pressure sites Arm, right (06/11/22 2:10 PM) Arm, right (06/11/22 6:27 AM) Arm, right (06/11/22 6:26 AM) Temperature Route Oral (06/11/22 2:10 PM) Oral (06/11/22 6:27 AM) Oral (06/11/22 6:26 AM) Weight Obtained Via Patient/family state d (06/10/22 9:02 PM) Social History Social History Type Response Smoking Status 10 or more cigarette s (1/2 pack or more)/day in last 30 days; Interested in cessation: No entered on: 01/29/22 Sex
--- OUTSIDE RECORDS SUMMARY | 2024-04-01 08:20 | XMS_ITS | Continuity of Care Document ---
Author Organization [facility] ter Address [address] [place] [id number]- Care Team Providers Care Doubler Helper Name Role Phone David Garcia DO Primary Care Physician Encounter [facility] [place] Date(s): 01/07/23 - 01/07/[address] [address]- Discharge Disposition: A-D/C Walkout Attending Physician: Not on Staff, Attending MD Admitting Physician: Not on Staff, Admitting MD Referring Physician: Not on Staff, Referring [...] Refills, Maintenance, 11/10/22 9:55:00 EST, Tablet, [id number], Partial fill upon patient request if the [...] 12/28/22 14:54:00 EST, Route to Pharmacy Electronically, [facility]/pharmacy #[id number], Partial fill upon patient request if the prescription is for a schedule II opio... Start Date: 12/28/22 Status: Ordered benztropine 1 mg oral tablet 1 mg, 1, tablet, By Mouth, 2 times a day, Refills 0, Maintenance, 01/29/22 9:48:00 EST, Partial fill upon patient request if the prescription is for a schedule II opioid drug. Start Date: 01/29/22 Status: Ordered clonazePAM 1 mg oral tablet 1 tablet = 1 mg, By Mouth, 3 times a day, PRN Anxiety, Last filled: 09/30/2022 No early refill, # 90 tablet, 3 Refills, Maintenance, 10/11/22 17:03:00 EST, Tablet, [facility]/pharmacy #[id number], Partial fill upon patient request if the prescription is for a marlene... Start Date: 10/11/22 Status: Ordered docusate sodium 100 mg oral [...] tablet, By Mouth, 3 times a day, for 30 days, # 90 tablet, Refills 1, Tot. Refills 1, Hard Stop 01/09/23 9:56:00 EST, 11/10/22 9:56:00 EST, Route to Pharmacy Electronically, [facility]/pharmacy #[id number], Partial fill upon patient request if the prescr... Start Date: 11/10/22 Stop Date: 01/09/23 Status: Ordered haloperidol 10 mg oral tablet 10 mg, 1, tablet, By Mouth, 3 times a day, # 90 tablet, Refills 1, Tot. Refills 1, Maintenance, 01/09/23 9:56:00 EST, Route to Pharmacy Electronically, [facility]/pharmacy #[id number], Partial fill upon patient request [...] tablet, 1 Refills, Maintenance, 12/28/22 14:58:00 EST, [id number], Partial fill upon patient [...] opioid drug. Start Date: 01/29/22 Status: Ordered Lybalvi 20 mg-10 mg oral tablet 1 tablet, By Mouth, Daily, # 30 tablet, 1 Refills, Maintenance, 11/10/22 9:58:00 EST, [facility]/pharmacy #[id number], Partial fill upon patient request if the prescription is for a schedule II opioid drug., 1 tablet By Mouth Daily, 182.8, cm, 06/11/22 16:41:00 ED... Start Date: 11/10/22 Status: Ordered pantoprazole 40 mg oral delayed release tablet 1 tablet = 40 mg, By Mouth, Daily, 0 Refills, Maintenance, 01/29/22 9:49:00 EST Start Date: 01/29/22 Status: Ordered perphenazine 4 mg oral tablet 4 mg, 1, tablet, By Mouth, 3 times a day, # 90 tablet, Refills 0, Tot. Refills 0, Maintenance, 01/03/23 12:38:00 EST, Route to Pharmacy Electronically, [facility]/pharmacy #[id number], Partial fill upon patient request if the prescription is for a schedule II opio... Start Date: 01/03/23 Status: Ordered propranolol 20 mg oral tablet [...] opioid drug. Start Date: 01/29/22 Status: Ordered Problem List Condition Confirmation Course Effective Dates Status Health Status Informant Constipation Confirmed Active GERD (gastroesophageal reflux disease) Confirmed Active History of tonsillectomy Confirmed Active Hyperlipidemia Confirmed Active Hypertension Confirmed Active Hypertriglyceridemia Confirmed Active Morbid obesity Confirmed Active Nicotine dependence Confirmed Active Obese class I Confirmed Active Vital Signs Most recent to oldest [Reference Range]: 1 2 Oxygen Saturation [94-100 %] 100 % (01/07/23 11:59 AM) 100 % (01/07/23 11:55 AM) Pulse Rate [55-90 bpm] 97 bpm *H* (01/07/23 11:59 AM) 111 bpm *H* (01/07/23 11:55 AM) Blood Pressure [90-138/55-84 mm Hg] 142/ 72mm Hg *H* (01/07/23 11:59 AM) Respiratory Rate [16-30 br/min] 20 br/mi n (01/07/23 11:59 AM) Temperature [96.8-100.4 DegF] 98.0 DegF (01/07/23 11:59 AM) Mode of Delivery (Oxygen) Room air (01/07/23 11:59 AM) Room air (01/07/23 11:55 AM) Blood pressure sites Arm, left (01/07/23 11:59 AM) Temperature Route Oral (01/07/23 11:59 AM) Social History Social History Type Response Smoking Status 10 or more cigarette s (1/2 pack or more)/day in last 30 days; Interested in cessation: No entered on: 01/29/22 Sex Patient Care team information Care Team Personnel Name: David Garcia DO Position: [facility] Physician (General Medicine) Member Role: PCP Address: Address: [address] [place] [address]- Name: Aaron Sin MD Position: [facility] Psychiatry MD Member Role: Lifetime Consulting Physician Address: Address: [address] [place] [address] Name: Derian Patterson RN Position: [facility] RN Member Role: Primary Care Nurse Name: Maria Del Carmen Randolph RN Position: [facility] RN Member Role: Primary Care Nurse Name: Fe Garza Position: [facility] RN Member Role: Primary Care Nurse Name: Susannah Godoy RN Position: [facility] ED RN W/OE and Tasks Member Role: Primary Care Nurse Name: Regan Negro RN Position: [facility] SN RN Member Role: Primary Care Nurse Care Team Related Persons Name: STEVO, JAREK Address: [address] [address] Name: COLETTE WHITESIDE Address: [address] [place] [id number]
--- OUTSIDE RECORDS SUMMARY | 2024-04-01 08:20 | XMS_ITS | Continuity of Care Document ---
Author Organization [facility] Infectious Disease Address [address] [place] [phone]- Care Team Providers Care Rn Surgery Icu Name Role Phone David Garcia DO Primary Care Physician Encounter [facility] ACCT R [id number] Date(s): 08/06/21 - 11/12/21 [facility] Infect[facility] Disease [address] [place] [id number] Attending Physician: Osmin Chappell MD Admitting Physician: Osmin Chappell MD Referring Physician: David Garcia DO Allergies, Adverse Reactions, Alerts Substance Reaction Severity [...] mg, By Mouth, Daily, # 30 tablet, 2 Refills, Maintenance, 04/30/19 13:09:55 EDT, Tablet Start Date: 04/30/19 Status: Ordered benztropine 1 mg oral tablet 1.5 mg, 1.5, tablet, By Mouth, 3 times a day, # 405 tablet, Refills 1, Tot. Refills 1, Maintenance,01/29/19 15:34:46 EDT, Route to Pharmacy Electronically, [id number], [facility]/pharmacy #[id number] Start Date: 01/29/19 Status: Ordered clonazePAM 2 mg oral tablet 1 tablet = 2 mg, By Mouth, 3 times a day, dosage decrease; fax to [phone], # 90 tablet, 1 Refills, Maintenance, 04/06/19 17:52:39 EDT, Tablet Start Date: 04/06/19 Status: Ordered FLUoxetine 20 mg oral capsule 80 mg, 4, capsule, By Mouth, Daily, blister pack, # 360 capsule, Refills 1, Tot. Refills 1, Maintenance, 01/29/19 15:34:55 EDT, Route to Pharmacy Electronically, [id number],[facility]/pharmacy #[id number] Start Date: 01/29/19 Stop Date: 07/28/19 Status: Ordered gemfibrozil 600 mg oral tablet 600 mg, 1, tablet, By Mouth, 2 times a day before breakfast and dinne, # 180 tablet, Refills 3, Tot. Refills 3, Maintenance, 01/29/19 15:35:10 EDT, Route to Pharmacy Electronically, [id number], [facility]/pharmacy #[id number], switch to 9... Start Date: 01/29/19 Status: Ordered lamotrigine 100 mg oral tablet 150 mg, 1.5, tablet, By Mouth, Daily, blister pack, # 45 tablet, Refills 2, Tot. Refills 2, Maintenance, 01/29/19 15:35:28 EDT, Route to Pharmacy Electronically, [id number],[facility]/pharmacy #[id number] Start Date: 01/29/19 Status: Ordered metFORMIN 500 mg oral tablet 1 tablet = 500 mg, By Mouth, 2 times a day, # 180 tablet, 1 Refills, Maintenance, 01/29/19 15:35:31EDT, Tablet Start Date: 01/29/19 Status: Ordered olanzapine 20 mg oral tablet 1 tablet = 20 mg, By Mouth, Daily, # 30 tablet, 3 Refills, Maintenance, 04/14/19 13:14:43 EDT, Tablet Start Date: 04/14/19 Status: Ordered pantoprazole 20 mg oral delayed release tablet 1 tablet = 20 mg, By Mouth, Daily, # 90 tablet, 1 Refills, Maintenance, 01/29/19 15:35:34 EDT, EC Tablet Start Date: 01/29/19 Status: Ordered pilocarpine 5 mg oral tablet 1 tablet = 5 mg, By Mouth, 2 times a day, for dry mouth, # 60 tablet, 1 Refills, Maintenance, 05/04/19 10:00:50 EDT, Tablet, reordering Rx since it was never picked up by residential staff Start Date: 05/04/19 Status: Ordered propranolol 20 mg oral tablet 20 mg, 1, tablet, By Mouth, 3 times a day, dosage increase - cancel prior propranolol Rx - replace with this one, # 90 tablet, Refills 2, Tot. Refills 2, Maintenance, 01/29/19 15:35:40 EDT, Route to Pharmacy Electronically, [id number]... Start Date: 01/29/19 Status: Ordered traZODone 100 mg oral tablet 100 mg, 1, tablet, By Mouth, Daily at bedtime, PRN, # 90 tablet, Refills 1, Tot. Refills 1, Maintenance, Insomnia, 01/29/19 15:35:50 EDT, Route to Pharmacy Electronically, [id number], [facility]/pharmacy #[id number] Start Date: 01/29/19 Status: Ordered ZyPREXA 5 mg oral tablet 5 mg, 1, tablet, By Mouth, 2 times a day, take in the morning and at 3:00 PM, # 60 tablet, Refills 1, Tot. Refills 1, Maintenance, 05/04/19 9:59:29 EDT, Route to Pharmacy Electronically, [id number], [facility]/pharmacy #[id number], discon... Start Date: 05/04/19 Status: Ordered Problem List Condition Effective Dates Status Health Status Inform ant Constipation(Confirmed) Active GERD (gastroesophageal reflu x disease)(Confirmed) Active History of tonsillectomy(Confirmed) Active Hyperlipidemia(Confirmed) Active Hypertension(Confirmed) Active Hypertriglyceridemia(Confirmed) Active Morbid obesity(Confirmed) Active Nicotine dependence(Confirmed) Active Social History Social History Type Response Smoking Status Current every day steff manzano; Tobacco user in household: Yes entered on: 12/24/14 Sex
--- OUTSIDE RECORDS SUMMARY | 2024-04-01 08:20 | XMS_ITS | Continuity of Care Document ---
Author Organization [facility] Infectious Disease Address [address] [place] [phone]- Care Team Providers Care First Press Operator Name Role Phone David Garcia DO Primary Care Physician Encounter [facility] [place] Date(s): 10/13/21 - 11/12/21 [facility] [address] [place] [id number] Attending Physician: Patrick Logan Admitting Physician: AdmtrPatrick Referring Physician: AdmtrPatrick Allergies, Adverse Reactions, Alerts Substance Reaction Severity [...] Maintenance,01/29/19 15:34:46 EDT, Route to Pharmacy Electronically, [id number], [facility]/pharmacy #[id number] Start Date: 01/29/19 Status: Ordered clonazePAM 2 mg oral tablet 1 tablet = 2 mg, By Mouth, 3 times a day, dosage decrease; fax to [phone], # 90 tablet, 1 Refills, Maintenance, 04/06/19 17:52:39 EDT, Tablet Start Date: 04/06/19 Status: Ordered FLUoxetine 20 mg oral capsule 80 mg, 4, capsule, By Mouth, Daily, blister pack, # 360 capsule, Refills 1, Tot. Refills 1, Maintenance, 01/29/19 15:34:55 EDT, Route to Pharmacy Electronically, [id number],[facility]/pharmacy #[id number] Start Date: 01/29/19 Stop Date: 07/28/19 Status: Ordered gemfibrozil 600 mg oral tablet 600 mg, 1, tablet, By Mouth, 2 times a day before breakfast and dinne, # 180 tablet, Refills 3, Tot. Refills 3, Maintenance, 01/29/19 15:35:10 EDT, Route to Pharmacy Electronically, [id number], [facility]/pharmacy #[id number], switch to 9... Start Date: 01/29/19 Status: Ordered lamotrigine 100 mg oral tablet 150 mg, 1.5, tablet, By Mouth, Daily, blister pack, # 45 tablet, Refills 2, Tot. Refills 2, Maintenance, 01/29/19 15:35:28 EDT, Route to Pharmacy Electronically, [id number],[facility]/pharmacy #[id number] Start Date: 01/29/19 Status: Ordered metFORMIN [...] since it was never picked up by prison staff Start Date: 05/04/19 Status: Ordered propranolol 20 mg oral tablet 20 mg, 1, tablet, By Mouth, 3 times a day, dosage increase - cancel prior propranolol Rx - replace with this one, # 90 tablet, Refills 2, Tot. Refills 2, Maintenance, 01/29/19 15:35:40 EDT, Route to Pharmacy Electronically, [id number]... Start Date: 01/29/19 Status: Ordered traZODone 100 mg oral tablet 100 mg, 1, tablet, By Mouth, Daily at bedtime, PRN, # 90 tablet, Refills 1, Tot. Refills 1, Maintenance, Insomnia, 01/29/19 15:35:50 EDT, Route to Pharmacy Electronically, [id number], [facility]/pharmacy #[id number] Start Date: 01/29/19 Status: Ordered ZyPREXA 5 mg oral tablet 5 mg, 1, tablet, By Mouth, 2 times a day, take in the morning and at 3:00 PM, # 60 tablet, Refills 1, Tot. Refills 1, Maintenance, 05/04/19 9:59:29 EDT, Route to Pharmacy Electronically, [id number], [facility]/pharmacy #[id number], discon... Start Date: 05/04/19 Status: Ordered [...]
--- OUTSIDE RECORDS SUMMARY | 2024-04-01 08:20 | XMS_ITS | Continuity of Care Document ---
Author Organization [facility] ter Address [address] [place] [phone]- Care Team Providers Care Wire Brush Maker Name Role Phone David Garcia DO Primary Care Physician Encounter [facility] Date(s): 12/10/22 - 12/10/[address] [address]- Discharge Disposition: Transfer to [facility] Attending Physician: Darwin Brown MD Admitting Physician: Darwin Brown MD Referring Physician: Not on Staff, Referring [...] 1 Refills, Maintenance, 11/10/22 9:55:00 EST, Tablet, [facility]/pharmacy #[id number], Partial fill upon patient request if the prescription is for a schedule II opioid drug., 182.8, cm, 06/11/22 16:41:00 EDT, Height Start Date: 11/10/22 Status: Ordered Abilify Maintena 400 mg intramuscular injection, extended release = 400 mg, Intramuscular, Every 28 days, 0 Refills, Maintenance, 03/11/22 9:46:00 EST, Partial fill upon patient request if the prescription is for a schedule II opioid drug. Start Date: 01/29/22 Status: Ordered benztropine 1 mg oral tablet 1 mg, 1, tablet, By Mouth, 2 times a day, # 60 tablet, Refills 1, Tot. Refills 1, Maintenance, 11/10/22 9:54:00 EST, Route to Pharmacy Electronically, [facility]/pharmacy #[id number], Partial fill upon patient request if the prescription is for a schedule II opioi... Start Date: 11/10/22 Status: Ordered benztropine 1 mg oral tablet [...] Every 24 hours, Ins requires 300mg and 150mg., # 30 tablet, 1 Refills,Maintenance, 11/29/22 13:34:00 EST, ER Tablet, [facility]/pharmacy #[id number], Partial fill upon patient request if the prescription is for a schedule II opioid dr... Start Date: 11/29/22 Status: Ordered buPROPion 300 mg/24 hours (XL) oral tablet, extended release 1 tablet = 300 mg, By Mouth, Daily, Ins requires 150mg and 300mg. TDD 450mg daily. D/C SR, # 30 tablet, 1 Refills, Maintenance, 11/29/22 13:34:00 EST, ER Tablet, [facility]/pharmacy #0517, Partial fill uponpatient request if the prescription is for a schedu... Start Date: 11/29/22 Status: Ordered buPROPion 450 mg/24 hours (XL) oral tablet, extended release 1 tablet = 450 mg, By Mouth, Every 24 hours, Switch from SR to XL, # 30 tablet, 1 Refills, Maintenance, 11/29/22 10:17:00 EST, ER Tablet, [facility]/pharmacy #[id number], Partial fill upon patient request if the prescription is for a schedule II opioid drug., 182.... Start Date: 11/29/22 Status: Ordered clonazePAM 1 mg oral tablet 1 tablet = 1 mg, By Mouth, 3 times a day, PRN Anxiety, Last filled: 09/30/2022 No early refill, # 90 tablet, 3 Refills, Maintenance, 10/11/22 17:03:00 EST, Tablet, [facility]/pharmacy #[id number], Partial fill upon patient request [...] opioid drug. Start Date: 01/29/22 Status: Ordered FLUoxetine 40 mg oral capsule 2 capsule = 80 mg, By Mouth, Daily, # 60 capsule, 1 Refills, Maintenance, 11/10/22 9:56:00 EST, [facility]/pharmacy #[id number], Partial fill upon patient request if the prescription is for a schedule II opioid drug., 182.8, cm, 06/11/22 16:41:00 EDT, Height Start Date: 11/10/22 Status: Ordered gemfibrozil 600 mg oral tablet [...] tablet, Refills 1, Tot. Refills 1, Maintenance, 11/10/22 9:56:00 EST, Route to Pharmacy Electronically, [facility]/pharmacy #[id number], Partial fill upon patient request if the prescription is for a schedule II opio... Start Date: 11/10/22 Stop Date: 01/09/23 Status: Ordered KlonoPIN 1 mg oral tablet [...] # 30 tablet, 1 Refills, Maintenance, 11/10/22 9:57:00 EST, [facility]/pharmacy #[id number], Partial fill upon patient request if the prescription is for a schedule II opioid drug., 182.8, cm, 06/11/22 16:41:00 EDT, Height Start Date: 11/10/22 Status: Ordered lamotrigine 150 mg oral tablet [...] tablet, 1 Refills, Maintenance, 11/10/22 9:58:00 EST, [facility]/pharmacy #[id number], Partial fill upon patient request [...] to oldest [Reference Range]: 1 2 3 Oxygen Saturation [94-100 %] 97 % (12/10/22 6:45 AM) 96 % (12/10/22 12:35 AM) 98 % (12/10/22 12:15 AM) Pulse Rate [55-90 bpm] 60 bpm (12/10/22 6:45 AM) 76 bpm (12/10/22 6:36 AM) 71 bpm (12/10/22 12:35 AM) Blood Pressure [90-138/55-84 mm Hg] 102/47mm Hg (12/10/22 6:45 AM) 127/57mm Hg (12/10/22 6:36 AM) 127/70mm Hg (12/10/22 12:35 AM) Respiratory Rate [16-30 br/min] 17 br/min (12/10/22 6:45 AM) 18 br/min (12/10/22 6:36 AM) 16 br/min (12/10/22 12:35 AM) Temperature [96.8-100.4 DegF] 97.7 DegF (12/10/22 6:36 AM) 98.1 DegF (12/10/22 12:35 AM) 97.5 DegF (12/10/22 12:15 AM) Mode of Delivery (Oxygen) Room air (12/10/22 6:45 AM) Room air (12/10/22 12:35 AM) Room air (12/10/22 12:15 AM) Blood pressure sites Arm, right (12/10/22 12:35 AM) Arm, right (12/10/22 12:15 AM) Temperature Route Oral (12/10/22 12:35 AM) Oral (12/10/22 12:15 AM) Social History Social History Type Response Smoking Status 10 or more cigarette s (1/2 pack or more)/day in last 30 days; Interested in cessation: No entered on: 01/29/22 Sex Patient Care team information Care Team Personnel Name: David Garcia DO Position: [facility] Physician (General Medicine) Member Role: PCP Address: Address: [address] [place] [phone]- Name: Aaron Sin MD Position: [facility] Psychiatry MD Member Role: Lifetime Consulting Physician Address: Address: [address] [place] [address]- Name: Derian Patterson RN Position: [facility] RN Member Role: Primary Care Nurse Name: Maria Del Carmen Randolph RN Position: [facility] RN Member Role: Primary Care Nurse Name: Fe Garza Position: [facility] RN Member Role: Primary Care Nurse Name: Susannah Godoy RN Position: [facility] ED RN W/OE and Tasks Member Role: Primary Care Nurse Name: Regan Negro RN Position: [facility] RN Member Role: Primary Care [facility] Attending Position: [facility] ED Attendings Patient Name: Darwin Brown MD Position: [facility] ED Medicine MD Member Role: Admitting Physician Address: Address: [address] [place] [address] [place], [place] [address] Name: Maria Del Carmen Giordano RN Position: [facility] ED RN W/OE and Tasks Member Role: Patient Care Provider Care Team Related Persons Name: JAREK WHITESIDE Address: home [address] [place] [phone] Name: COLETTE WHITESIDE Address: home [address] [place] [phone]
--- OUTSIDE RECORDS SUMMARY | 2024-04-01 08:20 | XMS_ITS | Continuity of Care Document ---
Author Organization [facility] Infectious Disease Address [address] [place] [phone]- Care Team Providers Care Slp Teacher Name Role Phone David Garcia DO Primary Care Physician [place] [facility] [place] 03/16/24 [facility] [address] [place] [id number] Allergies, Adverse Reactions, Alerts [...] 12/28/22 14:54:00 EST, Route to Pharmacy Electronically, [facility]/pharmacy #[id number], Partial fill upon patient request [...] Refills, Maintenance, 01/11/23 15:09:00 EST, ER Tablet, [facility]/pharmacy #[id number], Partial fill upon patient request i... Start Date: 01/11/23 Status: Ordered buPROPion 300 mg/24 hours (XL) oral tablet, extended release 1 tablet = 300 mg, By Mouth, Daily, Ins requires 150mg and 300mg. TDD 450mg daily., # 30 tablet, 1 Refills, Maintenance, 01/11/23 15:09:00 EST, ER Tablet, [facility]/pharmacy #[id number], Partial fill upon patient request if the prescription is for a schedule II o... Start Date: 01/11/23 Status: Ordered clonazePAM 1 mg oral tablet 1 tablet = 1 mg, By Mouth, 3 times a day, PRN Anxiety, Last filled: 02/08/23 for 6 days No early refill, # 90 tablet, 0 Refills, Maintenance, 02/15/23 11:26:00 EDT, Tablet, [facility]/pharmacy #[id number], Partialfill upon patient request if [...] tablet, 0 Refills, Maintenance, 01/20/23 18:46:00 EST, [facility]/pharmacy #[id number], Partial fill upon patient request [...] 2 Refills, Maintenance, 12/23/23 9:05:00 EST, Tablet, [facility]/pharmacy #[id number], Partial fill upon patient request [...] 01/09/23 9:56:00 EST, Route to Pharmacy Electronically, [facility]/pharmacy #[id number], Partial fill upon patient request [...] 01/18/23 9:16:00 EST, Route to Pharmacy Electronically, [facility]/pharmacy #[id number], Partial fill upon patient request if the p... Start Date: 01/18/23 Status: Ordered lamotrigine 150 mg oral tablet 1 tablet = 150 mg, By Mouth, Daily, # 30 tablet, 1 Refills, Maintenance, 12/28/22 14:58:00 EST, [facility]/pharmacy #[id number], Partial fill upon patient request [...] 01/10/23 14:57:00 EST, Route to Pharmacy Electronically, [facility]/pharmacy #0589, Partial fill upon patient request if the [...] Active Nicotine dependence Confirmed Active Severe obesity Confirmed Active Social History Social History Type Response Smoking Status 10 or more cigarette s (1/2 pack or more)/day in last 30 days; Interested in cessation: No entered on: 01/29/22 Sex Patient Care team information Care Team Personnel Name: David Garcia DO Position: [facility] Physician - Primary Care Member Role: PCP Address: Address: [address] [place] [address] Name: Derian Patterson RN Position: [facility] RN Member Role: Primary Care Nurse Name: Maria Del Carmen Randolph RN Position: [facility] RN Member Role: Primary Care Nurse Name: Fe Dueñas MA Position: [facility] RN Member Role: Primary Care Nurse Name: Susannah Godoy RN Position: [facility] ED RN W/OE and Tasks Member Role: Primary Care Nurse Name: Regan Negro RN Position: [facility] SN RN Member Role: Primary Care Nurse Care Team Related Persons Name: JAREK WHITESIDE Address: home [address] [place] [phone] Name: COLETTE WHITESIDE Address: home [address] [place] [phone]
[2024-04-01 08:24] LABS: MANUAL DIFF FLAG NO
[2024-04-01 08:26] LABS: Basophils Percent Auto 0.5 % (0-2); Eosinophils Absolute Auto 0.2 X10*3/uL (0.0-0.4); Eosinophils Percent Auto 2.3 % (0-4); Hematocrit 43.8 % (42.0-52.0); Imm Gran Abs Auto 0.02 X10*3/uL (0.00-0.03); Imm Gran Pct Auto 0.3 % (0.0-0.4); Lymphocytes Absolute Auto 0.5 X10*3/uL (1.2-4.9); Lymphocytes Percent Auto 6.9 % (20-40); Mean Corpuscular HGB Conc 34.2 g/dl (31.0-36.0); Mean Corpuscular Hemoglobin 31.3 pg (27.0-33.0); Mean Corpuscular Volume 91.4 fL (80.0-98.0); Mean Platelet Volume 9.9 fL (9.4-12.4); Monocytes Absolute Auto 0.7 X10*3/uL (0.1-1.2); Monocytes Percent Auto 10.6 % (2-11); Neutrophils Absolute Auto 5.2 x10*3/uL (2.0-8.3); Neutrophils Percent Auto 79.4 % (45-73); Platelet Count 169 X10*3/uL (160-400); Red Blood Count 4.79 X10*6/uL (4.60-5.80); Red Cell Distribution Width 12.6 % (11.0-16.0); White Blood Count 6.5 X10*3/uL (4.8-10.8)
[2024-04-01 08:27] LABS: Appearance Urine Clear; Color Urine Yellow; Glucose Urine UA Negative (Negative); Leukocyte Esterase Urine Negative (Negative); Nitrite Urine Negative (Negative); PH 8.5 (5.0-9.0); Specific Gravity - Urine <= 1.005 (1.005-1.025); Urine Blood Negative (Negative); Urine Ketones Negative (Negative); Urine Protein Negative (Neg-Trace)
[2024-04-01 08:38] LABS: Amphetamine Screen Urine Not Detected (Not Detect); Barbiturates, Urine Not Detected (Not Detect); Benzodiazepines Screen Urine Not Detected (Not Detect); Buprenorphine Scr Not Detected (Not Detect); Cannabinoid Screen Urine Not Detected (Not Detect); Cocaine Screen Urine Not Detected (Not Detect); Fentanyl, urine Not Detected (Not Detect); Methadone Screen, Urine Not Detected (Not Detect); Opiate Screen Urine Not Detected (Not Detect); Oxycodone Screen Urine Not Detected (Not Detect); Phencyclidine Screen Urine Not Detected (Not Detect)
[2024-04-01 08:48] LABS: Alanine Aminotransferase 53 U/L (0-40); Albumin Level 4.3 g/dL (3.5-5.0); Alkaline Phosphatase 93 U/L (39-117); Anion Gap 16 (12-20); Aspartate Amino Transferase 34 U/L (5-37); Bilirubin Total 0.4 mg/dL (0.0-1.0); Blood Urea Nitrogen 7 mg/dL (9-16); Calcium 9.4 mg/dL (8.4-10.2); Carbon Dioxide 19 mmol/L (22-29); Chloride 107 mmol/L (96-108); Creatinine Clr Calc Pharmacy 164.3; Estimated Glomerular Filt Rate > 60; Ethanol < 10 mg/dL; Glucose Random 95 mg/dL (60-115); Potassium 3.8 mmol/L (3.3-5.1); Sodium 138 mmol/L (135-145); Total Protein 7.4 g/dL (6.5-8.0)
[2024-04-01 08:59] LABS: COVID-19 Test Negative (Negative); IDNOW Serial# 08D9AD1C
--- NOTE | 2024-04-01 09:32 | ED_ITS ---
HPI - Psych General Chief Complaint: Psychiatric Symptoms Stated Complaint: HEARING VOICES, UNABLE TO SLEEP PER EMS Time Seen by Provider: 04/01/24 09:31 Source: patient, EMS and old records reviewed Mode of arrival: EMS Limitations: no limitations History of Present Illness HPI Narrative: 33-year-old male with a history of schizoaffective disorder, bipolar type, history of alcohol use disorder, cannabis use disorder, anxiety who presents to the ER via EMS for evaluation of auditory and visual hallucinations and insomnia for the last 2 days. Patient starts 2 days ago he started having hallucinations of seeing people of all different ages. They would started tell him their life stories when suddenly they would dissipate he states he has a longstanding history of hallucinations and hallucinated for 10 months straight once. He was hospitalized during this time. He reports medication compliance and no new significant life stressors. He states he has been sober from alcohol for the last 3 or 4 months. Denies any other illicit drug use. He denies any suicidal thoughts. He states the hallucinations are making it so he does not sleep. He has not slept in 48 hours. He feels confused and ?off. ? Denies any nausea, vomiting, abdominal pain, chest pain, shortness for breath. MD complaint: hallucinations and other (confusion) Onset (ago): day(s) (2) Duration: getting worse History of same: Yes Relieving factors: medication and therapy Context: not taking psychiatric medications Associated psychiatric symptoms: auditory hallucinations and visual hallucinations Associated symptoms: confusion and insomnia Related Data Home Medications ?Medication ?Instructions ?Recorded ?Confirmed chlorpromazine 200 mg tablet 200 mg PO QID 04/01/24 04/01/24 metformin 500 mg tablet 500 mg PO BID 04/01/24 04/01/24 risperidone 4 mg tablet 4 mg PO TID 04/01/24 04/01/24 trazodone 150 mg tablet 150 mg PO BEDTIME PRN Insomnia 04/01/24 04/01/24 venlafaxine 75 mg capsule,extended 75 mg PO DAILY 04/01/24 04/01/24 release 24 hr Previous Rx's ?Medication ?Instructions ?Recorded Pt Own (Descovy 200-25 Mg) 1 tab PO DAILY ##0 02/03/23 clonidine HCl 0.1 mg tablet 0.1 mg PO TID PRN anxiety 30 days 01/16/24 #90 tabs lithium carbonate 600 mg capsule 600 mg PO BID 30 days #60 caps 01/16/24 pantoprazole 40 mg tablet,delayed 40 mg PO DAILY 30 days #30 tabs 01/16/24 release venlafaxine 150 mg 150 mg PO DAILY 30 days #30 caps 01/16/24 capsule,extended release 24 hr venlafaxine 75 mg tablet 75 mg PO DAILY 30 days #30 tabs 01/16/24 naltrexone 50 mg tablet 50 mg PO .QHS 30 days #30 tabs 02/10/24 topiramate 100 mg tablet 100 mg PO BID 30 days #60 tabs 02/10/24 Allergies Allergy/AdvReac Type Severity Reaction Status Date / Time quetiapine [From SEROQUEL] Allergy Unknown throat Verified 04/01/24 08:09 closes per patient Review of Systems 2 Review of Systems: Yes all other systems are reviewed and are negative [facility] Past Medical History Medical History (Updated 04/01/24 @ 10:41 by DEYSI Cohen) Hepatitis C No known health problems Surgical History (Updated 08/19/23 @ 11:44 by Liya Xiao RN) Hx of tonsillectomy Social History Social History Household Members: None Household Members Other:: Ori is living with his grandparents Housing: House Do you presently have visiting nurse or other home services: No Alcohol intake: never Patient Tobacco Use Status: Current everyday Tobacco user Tobacco use type: Cigarette Cigarette Packs Per Day: 1 Cigarettes Per Day: 40.0 Years Smoked: 15 Smoked in Last 30 Days: Yes e-Cigarette/Vaping Use: Never Used Second Hand Smoke Exposure: No Use of substances other than those prescribed or required for medical reasons: No Advance Directives: No Advance Directives Information Provided: Yes Do you have a plan to hurt others: No Plan service: No Physical Exam 2 Vital Signs: Vital Signs: Last Vital Signs Temp 96.1 F L 04/01/24 08:10 Pulse 112 H 04/01/24 08:10 Resp 18 04/01/24 08:10 BP 135/81 04/01/24 08:10 Pulse Ox 95 04/01/24 08:10 O2 Del Method Room Air 04/01/24 08:10 BMI result Body Mass Index 38.4 Appearance: Alert. Oriented X3. No acute distress. Groggy Head: normocephalic, atraumatic. Eyes: Pupils equal, round and reactive to light. ENT: Pharynx w/ dry mouth. No tonsillar swelling or exudate. Neck: Normal inspection. Neck supple. CVS: Normal heart rate and rhythm. Pulses normal. Respiratory: No respiratory distress. Breath sounds normal. Abdomen: Soft and nontender. +BS x4 Skin: Skin warm and dry. Normal skin color. Normal skin turgor. No rashes. Extremities: No lower extremity edema. No joint swelling. Neuro/psych: Oriented X 3. No motor deficit. No sensory deficit. CN II-XII intact. Pressured speech, difficulty concentrating on conversation. Course Reevaluation(s) Reevaluation #1: Physician observation started at 10:37. Patient placed in physician observation because patient is awaiting CARE team evaluation for the possible need of inpatient psych admission. At the time observation was started patient's vital signs were stable. Lab work showing a slightly elevated lithium level. He reports med compliance. He has been not sleeping, unsure if he accidentally took too much of his lithium. Upon review of his labs he has had low lithium levels in the past. Unsure if he has any recent dose adjustments. Will hold his lithium and have psych see him for possible medication adjustment. No signs of lithium toxicity at this time. He is stable to be seen by care team. Patient is alert and oriented. Neuro exam is non-focal. CV: RRR and lungs are clear. Will continue to monitor. Time: 10:37 Reevaluation #2: patient seen by CARE team. recommending inpatient level of care spoke w/ Dr. Camacho - recommending decreasing [place] dose from 1200 mg per day to 900 mg per day, continuing it tonight and rechecking a level in the morning. Time: 13:03 Consultations Consultation #1: Psych Consultation #2: CARE Medications Administered Generic Name Dose Route Start Last Admin Trade Name Freq PRN Reason Stop Dose Admin Chlorpromazine HCl 200 mg 04/01/24 13:00 04/01/24 11:20 Chlorpromazine Hcl 100 Mg Tablet PO 200 mg QID OSIEL Administration Clonidine HCl 0.1 mg 04/01/24 10:32 04/01/24 11:18 Clonidine Hcl 0.1 Mg Tablet PO 0.1 mg TID PRN Administration anxiety Protocol Metformin HCl 500 mg 04/01/24 10:45 04/01/24 11:18 Metformin Hcl 500 Mg Tablet PO 500 mg BID OSIEL Administration Naltrexone HCl 50 mg 04/01/24 10:45 04/01/24 11:19 Naltrexone Hcl 50 Mg Tablet PO 50 mg BEDTIME OSIEL Administration Omeprazole 20 mg 04/01/24 11:00 04/01/24 11:18 Omeprazole 20 Mg Capsule.Dr PO 20 mg DAILY@0630 OSIEL Administration Risperidone 4 mg 04/01/24 10:45 04/01/24 11:19 Risperidone 2 Mg Tablet PO 4 mg TID OSIEL Administration Topiramate 100 mg 04/01/24 10:45 04/01/24 11:23 Topiramate 100 Mg Tablet PO 100 mg BID OSIEL Administration Venlafaxine HCl 150 mg 04/01/24 10:45 04/01/24 11:18 Venlafaxine Hcl Er 150 Mg Cap.Er.24h PO 150 mg DAILY OSIEL Administration Venlafaxine HCl 75 mg 04/01/24 12:45 04/01/24 13:45 Venlafaxine Hcl Er 75 Mg Cap.Er.24h PO Not Given DAILY OSIEL Discontinued Medications Generic Name Dose Route Start Last Admin Trade Name Freq PRN Reason Stop Dose Admin Venlafaxine HCl 75 mg 04/01/24 12:28 04/01/24 13:46 Venlafaxine Hcl Er 75 Mg Cap.Er.24h PO 04/01/24 12:29 75 mg DAILY ONE Administration Medical Decision Making Medical Decision Making MDM Narrative: 33-year-old male with history of bipolar disorder, bipolar type on lithium, history of polysubstance abuse who presents to the ER for evaluation of visual and auditory hallucinations as well as insomnia for the last 48 hours. On arrival to the ER patient reports confusion and feeling ?off. ? They have been med compliant at home. Endorses visual and auditory hallucinations of seeing people, they are telling their whole life stories and then all the sudden disappear. Patient states this is very frightening to them. Patient is not responding to any internal stimuli at this time. Not actively hallucinating. Lab workup is revealing for slightly elevated lithium level of 1.27. Will hold lithium, get psych consult. Care team evaluation pending. Differential Diagnosis Differential Diagnoses: The differential diagnosis associated with the presentation includes lithium toxicity, substance induced mood disorder, acute psychosis, schizophrenia, schizoaffective disorder, PTSD, bipolar disorder, major depression with psychotic features Admission/Observation Consideration of admission/observation: Escalation of care including admission/observation considered Consult Healthcare Provider Management of the patient was discussed with: [employer]asting [employer] As[employer]er and Behavioral Health Provider dr. camacho Lab Data MDM Lab Attestation statement: I reviewed the patient's lab results. mildly elevated lithium level 04/01/24 08:19 04/01/24 08:19 Labs: Lab Results 04/01/24 04/01/24 04/01/24 Range/Units 08:04 08:16 08:19 WBC 6.5 (4.8-10.8) X10*3/uL RBC 4.79 (4.60-5.80) X10*6/uL Hgb 15.0 (14.0-18.0) g/dl Hct 43.8 (42.0-52.0) % MCV 91.4 (80.0-98.0) fL MCH 31.3 (27.0-33.0) pg MCHC 34.2 (31.0-36.0) g/dl RDW 12.6 (11.0-16.0) % Plt Count 169 (160-400) X10*3/uL MPV 9.9 (9.4-12.4) fL Immature Gran % (Auto) 0.3 (0.0-0.4) % Neut % (Auto) 79.4 H (45-73) % Lymph % (Auto) 6.9 L (20-40) % [place] % (Auto) 10.6 (2-11) % Eos % (Auto) 2.3 (0-4) % Baso % (Auto) 0.5 (0-2) % Lymph # (Auto) 0.5 L (1.2-4.9) X10*3/uL [place] # (Auto) 0.7 (0.1-1.2) X10*3/uL Eos # (Auto) 0.2 (0.0-0.4) X10*3/uL Baso # (Auto) 0.0 (0.0-0.2) X10*3/uL Abs Immat Gran (auto) 0.02 (0.00-0.03) X10*3/uL Absolute Neuts (auto) 5.2 (2.0-8.3) x10*3/uL Absolute Nucleated RBC 0.000 (0.0-0.012) X10*3/uL Nucleated RBC % (auto) 0.0 (0.0-0.2) /100WBC Sodium 138 (135-145) mmol/L Potassium 3.8 (3.3-5.1) mmol/L Chloride 107 (96-108) mmol/L Carbon Dioxide 19 L (22-29) mmol/L Anion Gap 16 (12-20) BUN 7 L (9-16) mg/dL Creatinine 0.81 (0.5-1.4) mg/dL Estim Creat Clear Calc 164.3 Estimated GFR > 60 Random Glucose 95 (60-115) mg/dL Calcium 9.4 (8.4-10.2) mg/dL Total Bilirubin 0.4 (0.0-1.0) mg/dL AST 34 (5-37) U/L ALT 53 H (0-40) U/L Alkaline Phosphatase 93 (39-117) U/L Total Protein 7.4 (6.5-8.0) g/dL Albumin 4.3 (3.5-5.0) g/dL TSH 2.28 (0.32-4.0) uIU/mL Urine Color Yellow Urine Appearance Clear Urine pH 8.5 (5.0-9.0) Ur Specific [place] <= 1.005 (1.005-1.025) Urine Protein Negative (Neg-Trace) mg/dL Urine Glucose (UA) Negative (Negative) mg/dL Urine Ketones Negative (Negative) mg/dL Urine Blood Negative (Negative) Urine Nitrite Negative (Negative) Ur Leukocyte Esterase Negative (Negative) Urine Opiates Screen Not Detected (Not Detect) Ur Buprenorphine Scrn Not Detected (Not Detect) ng/mL Ur Oxycodone Screen Not Detected (Not Detect) ng/mL Urine Methadone Screen Not Detected (Not Detect) ng/mL Urine Fentanyl Screen Not Detected (Not Detect) Ur Barbiturates Screen Not Detected (Not Detect) Ur Phencyclidine Scrn Not Detected (Not Detect) Ur Amphetamines Screen Not Detected (Not Detect) U Benzodiazepines Scrn Not Detected (Not Detect) [place] (0.60-1.20) mmol/L Urine Cocaine Screen Not Detected (Not Detect) U Marijuana (THC) Screen Not Detected (Not Detect) Ethyl Alcohol < 10 mg/dL COVID-19 (ALISHA) Negative (Negative) COVID-19 Clin Com See Note 04/01/24 Range/Units 09:48 WBC (4.8-10.8) X10*3/uL RBC (4.60-5.80) X10*6/uL Hgb (14.0-18.0) g/dl Hct (42.0-52.0) % MCV (80.0-98.0) fL MCH (27.0-33.0) pg MCHC (31.0-36.0) g/dl RDW (11.0-16.0) % Plt Count (160-400) X10*3/uL MPV (9.4-12.4) fL Immature Gran % (Auto) (0.0-0.4) % Neut % (Auto) (45-73) % Lymph % (Auto) (20-40) % [place] % (Auto) (2-11) % Eos % (Auto) (0-4) % Baso % (Auto) (0-2) % Lymph # (Auto) (1.2-4.9) X10*3/uL [place] # (Auto) (0.1-1.2) X10*3/uL Eos # (Auto) (0.0-0.4) X10*3/uL Baso # (Auto) (0.0-0.2) X10*3/uL Abs Immat Gran (auto) (0.00-0.03) X10*3/uL Absolute Neuts (auto) (2.0-8.3) x10*3/uL Absolute Nucleated RBC (0.0-0.012) X10*3/uL Nucleated RBC % (auto) (0.0-0.2) /100WBC Sodium (135-145) mmol/L Potassium (3.3-5.1) mmol/L Chloride (96-108) mmol/L Carbon Dioxide (22-29) mmol/L Anion Gap (12-20) BUN (9-16) mg/dL Creatinine (0.5-1.4) mg/dL Estim Creat Clear Calc Estimated GFR Random Glucose (60-115) mg/dL Calcium (8.4-10.2) mg/dL Total Bilirubin (0.0-1.0) mg/dL AST (5-37) U/L ALT (0-40) U/L Alkaline Phosphatase (39-117) U/L Total Protein (6.5-8.0) g/dL Albumin (3.5-5.0) g/dL TSH (0.32-4.0) uIU/mL Urine Color Urine Appearance Urine pH (5.0-9.0) Ur Specific [place] (1.005-1.025) Urine Protein (Neg-Trace) mg/dL Urine Glucose (UA) (Negative) mg/dL Urine Ketones (Negative) mg/dL Urine Blood (Negative) Urine Nitrite (Negative) Ur Leukocyte Esterase (Negative) Urine Opiates Screen (Not Detect) Ur Buprenorphine Scrn (Not Detect) ng/mL Ur Oxycodone Screen (Not Detect) ng/mL Urine Methadone Screen (Not Detect) ng/mL Urine Fentanyl Screen (Not Detect) Ur Barbiturates Screen (Not Detect) Ur Phencyclidine Scrn (Not Detect) Ur Amphetamines Screen (Not Detect) U Benzodiazepines Scrn (Not Detect) [place] 1.27 H (0.60-1.20) mmol/L Urine Cocaine Screen (Not Detect) U Marijuana (THC) Screen (Not Detect) Ethyl Alcohol mg/dL COVID-19 (ALISHA) (Negative) COVID-19 Clin Com Independent Historian Clinical information obtained from an independent historian. History obtained from or confirmed by: EMS External Record Review External record reviewed: Inpatient record, Outpatient record, Prior outpatient labs and Prior outpatient radiology Prescription Management I considered prescription management with: Other (Antipsychotic) Chronic Conditions Patient?s care impacted by: Other (Schizoaffective disorder) Critical Care Time Critical Care Time Critical Care Time: No Discharge Plan Discharge Clinical Impression: Schizoaffective disorder, bipolar type Patient Disposition: Still a Patient Prescriptions: No Action Pt Own (Descovy 200-25 Mg) 1 tab PO DAILY Qty: 0 0RF topiramate 100 mg tablet 100 mg PO BID 30 Days Qty: 60 0RF naltrexone 50 mg tablet 50 mg PO .QHS 30 Days Qty: 30 0RF clonidine HCl 0.1 mg tablet 0.1 mg PO TID PRN (Reason: anxiety) 30 Days Qty: 90 0RF venlafaxine 75 mg Tablet 75 mg PO DAILY 30 Days Qty: 30 0RF venlafaxine 150 mg Capsule,Extended Release 24hr 150 mg PO DAILY 30 Days Qty: 30 0RF lithium carbonate 600 mg capsule 600 mg PO BID 30 Days Qty: 60 0RF pantoprazole 40 mg tablet,delayed release (DR/EC) 40 mg PO DAILY 30 Days Qty: 30 0RF metformin 500 mg tablet 500 mg PO BID risperidone 4 mg Tablet 4 mg PO TID trazodone 150 mg Tablet 150 mg PO BEDTIME PRN (Reason: Insomnia) chlorpromazine 200 mg Tablet 200 mg PO QID venlafaxine 75 mg capsule,extended release 24hr 75 mg PO DAILY Interventions: [place]-Suicide Risk Severity Scale Last Done: 04/01/24 08:10 Print Language: [place]
[2024-04-01 10:15] LABS: Lithium 1.27 mmol/L (0.60-1.20)
[2024-04-01] MEDS: Venlafaxine HCl ER 150 MG CAP.ER.24H PO (11:18)
[2024-04-01] MEDS: Omeprazole 20 MG CAPSULE.DR PO (11:18)
[2024-04-01] MEDS: metFORMIN HCl 500 MG TABLET PO ×2 (11:18→19:50)
[2024-04-01] MEDS: cloNIDine HCL 0.1 MG TABLET PO ×2 (11:18→23:40)
[2024-04-01] MEDS: Naltrexone HCl 50 MG TABLET PO ×2 (11:19→19:50)
[2024-04-01] MEDS: risperiDONE 2 MG TABLET 4 MG PO ×3 (11:19→19:51)
[2024-04-01] MEDS: chlorproMAZINE HCl 100 MG TABLET 200 MG PO ×3 (11:20→19:50)
[2024-04-01 11:23] LABS: Thyroid Stimulating Hormone 2.28 uIU/mL (0.32-4.0)
[2024-04-01] MEDS: Topiramate 100 MG TABLET PO ×2 (11:23→19:51)
[2024-04-01] MEDS: Venlafaxine HCl ER 75 MG CAP.ER.24H PO (13:46)
[2024-04-01 16:29] VITALS: BP 134/90; PULSE 103; RESP 18; TEMP 36.3; O2SAT 96
[2024-04-01] MEDS: Nicotine Polacrilex 2 MG GUM 4 MG BUCCAL ×3 (16:38→19:53)
[2024-04-01 23:40] VITALS: BP 147/97; PULSE 98; RESP 16; TEMP 36.5; O2SAT 98
[2024-04-01] MEDS: traZODone HCL 50 MG TABLET 150 MG PO (23:40)
--- NOTE | 2024-04-02 | ECG_ITS ---
Test Reason : Check for prolonged QTC Blood Pressure : / mmHG Vent. Rate : 095 BPM Atrial Rate : 095 BPM P-R Int : 160 ms QRS Dur : 100 ms QT Int : 386 ms P-R-T Axes : 047 015 042 degrees QTc Int : 485 ms Poor data quality, interpretation may be adversely affected Normal sinus rhythm Possible Left atrial enlargement Prolonged QT Abnormal ECG When compared with ECG of 03-FEB-2024 12:22, Vent. rate has increased BY 31 BPM T wave amplitude has decreased in Anterior leads QT has lengthened Referred By: Rosette Galloway Electronically Signed By:TOM CABRERA MD
[2024-04-02] MEDS: clonazePAM 1 MG TABLET PO ×2 (02:43→21:52)
[2024-04-02] MEDS: Nicotine Polacrilex 2 MG GUM 4 MG BUCCAL ×4 (03:55→20:15)
[2024-04-02] MEDS: Omeprazole 20 MG CAPSULE.DR PO (05:28)
--- NOTE | 2024-04-02 07:04 | PC.NURSE ---
Patient slept through the night, no distress observed/reported, disposition per care team is section 12 inpatient bed search, meds and meals compliant, thought content paranoid, endorsing AVH, no behavior issues, will continue to monitor
--- NOTE | 2024-04-02 07:10 | PC.NURSE ---
Assumed care of patient at 0645. Patient is observed resting quietly in their bed. No signs of distress observed. Breathing is even and unlabored. Will continue plan of care.
[2024-04-02 07:31] LABS: Lithium 0.49 mmol/L (0.60-1.20)
[2024-04-02] MEDS: metFORMIN HCl 500 MG TABLET PO ×2 (08:28→20:08)
[2024-04-02] MEDS: Lithium Carbonate 300 MG CAPSULE PO (08:28)
[2024-04-02] MEDS: risperiDONE 2 MG TABLET 4 MG PO ×3 (08:28→20:07)
[2024-04-02] MEDS: chlorproMAZINE HCl 100 MG TABLET 200 MG PO ×4 (08:28→20:07)
[2024-04-02] MEDS: Venlafaxine HCl ER 150 MG CAP.ER.24H PO (08:29)
[2024-04-02] MEDS: Venlafaxine HCl ER 75 MG CAP.ER.24H PO (08:29)
[2024-04-02] MEDS: Topiramate 100 MG TABLET PO ×2 (08:29→20:09)
--- NOTE | 2024-04-02 10:38 | PHA.MEDREC ---
Pharmacy Consult ? Medication Reconciliation Pharmacy has reviewed the medication reconciliation done by nursing.
--- NOTE | 2024-04-02 10:55 | MHC.CARE ---
CARE Team met with patient's mother at her request. She was distressed and expressed concern about her son seeming worse than previous decompensation, specifically is more irritable and paranoid which she stated are not his usual presentation. Noted that the new psychiatrist added and changed medications, mother feels he is overly sedated and his symptoms are not addressed by current medications. In addition, she said she has been watching him deteriorated for since he moved into his own apartment, getting worse living alone without structure or purpose. Mother has tried to communicate with his team that he may need more supervision or a day program.
[2024-04-02 14:30] VITALS: BP 140/76; PULSE 100; RESP 16; TEMP 36.8; O2SAT 96
[2024-04-02 15:31] VITALS: BMI 47.5
--- NOTE | 2024-04-02 15:57 | PC.NURSE ---
Nursing admission note: 33 year old male, DX: Schizoaffective disorder, BiPolar Type. Referred for admission by CARE team. Signed conditional voluntary for admission. Patient self presented to ED reporting decompensation for past several weeks. Reported recent medication change, hallucinations for past 2 days. Patient engaged easily. Presents with good eye contact, blunted affect. Calm and cooperative with admission process. Speech soft and mumbled at times, difficult to understand. Reports he has not slept for several days, c/o feeling tired. Thoughts are disorganized with latency in response, preoccupied and distracted. Denies depression or sadness at this time. Denies SI/HI plan or intent. Denies feeling anxious. Reports +AH, states they say things however unable to elaborate at this time. I had a little blip. Completely indulged in psychosis. It messes with your mind. It sneaks in, you can feel it at first . It's a storm you get through . No reported VH at this time. Reports poor sleep for several days. Reports he has been binge eating eating my feelings . Medical history includes Hep C. Skin check completed, dry feet, long nails. Allergy to Seroquel. TOX screen negative. COVID negative. Patient oriented to unit. Placed on unit safety checks. See nursing evaluation/crisis assessment for further details.
[2024-04-02 20:00] VITALS: BP 117/75; PULSE 119; RESP 16; TEMP 36.3; O2SAT 97
[2024-04-02] MEDS: Lithium Carbonate 300 MG CAPSULE 600 MG PO (20:06)
[2024-04-02] MEDS: traZODone HCL 50 MG TABLET 150 MG PO (20:06)
[2024-04-02] MEDS: Naltrexone HCl 50 MG TABLET PO (20:08)
[2024-04-03] MEDS: Lithium Carbonate 300 MG CAPSULE PO (08:16)
[2024-04-03] MEDS: Omeprazole 20 MG CAPSULE.DR PO (08:17)
[2024-04-03] MEDS: chlorproMAZINE HCl 100 MG TABLET 200 MG PO (08:17)
[2024-04-03] MEDS: metFORMIN HCl 500 MG TABLET PO ×2 (08:17→20:48)
[2024-04-03] MEDS: Topiramate 100 MG TABLET PO ×2 (08:17→20:49)
[2024-04-03] MEDS: clonazePAM 1 MG TABLET PO ×3 (08:17→20:48)
[2024-04-03] MEDS: Venlafaxine HCl ER 75 MG CAP.ER.24H PO (08:17)
[2024-04-03] MEDS: risperiDONE 2 MG TABLET 4 MG PO (08:17)
[2024-04-03 08:20] VITALS: BP 97/52; PULSE 80; RESP 18; TEMP 36.7; O2SAT 93
[2024-04-03] MEDS: Nicotine Polacrilex 2 MG GUM 4 MG BUCCAL ×2 (10:08→14:03)
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
[2024-04-03] MEDS: chlorproMAZINE HCl 25 MG TABLET 150 MG PO ×3 (13:32→20:47)
[2024-04-03] MEDS: Lithium Carbonate 300 MG CAPSULE 600 MG PO ×2 (14:03→20:49)
[2024-04-03] MEDS: risperiDONE 3 MG TABLET PO ×2 (14:03→20:49)
[2024-04-03] MEDS: fluPHENAZine HCl 2.5 MG TABLET PO ×2 (14:03→20:48)
[2024-04-03] MEDS: Naltrexone HCl 50 MG TABLET PO (20:48)
[2024-04-03 20:49] VITALS: BP 111/65; PULSE 80; RESP 14; TEMP 37; O2SAT 96
[2024-04-03] MEDS: traZODone HCL 50 MG TABLET 150 MG PO (20:54)
[2024-04-04 07:34] VITALS: BP 116/71; PULSE 75; RESP 16; TEMP 35.6; O2SAT 94
[2024-04-04] MEDS: chlorproMAZINE HCl 25 MG TABLET 150 MG PO (08:57)
[2024-04-04] MEDS: metFORMIN HCl 500 MG TABLET PO ×2 (08:58→20:31)
[2024-04-04] MEDS: Lithium Carbonate 300 MG CAPSULE 600 MG PO ×3 (08:58→20:26)
[2024-04-04] MEDS: Topiramate 100 MG TABLET PO ×2 (08:58→20:26)
[2024-04-04] MEDS: fluPHENAZine HCl 2.5 MG TABLET PO (08:58)
[2024-04-04] MEDS: risperiDONE 3 MG TABLET PO (08:58)
[2024-04-04] MEDS: clonazePAM 1 MG TABLET PO ×3 (08:58→20:26)
[2024-04-04] MEDS: Omeprazole 20 MG CAPSULE.DR PO (08:58)
[2024-04-04] MEDS: Venlafaxine HCl ER 75 MG CAP.ER.24H PO (08:58)
[2024-04-04] MEDS: Nicotine Polacrilex 2 MG GUM 4 MG BUCCAL ×4 (11:00→20:31)
[2024-04-04] MEDS: chlorproMAZINE HCl 100 MG TABLET PO ×3 (13:24→20:25)
--- NOTE | 2024-04-04 14:51 | HO.PSYCHPN ---
Subjective Subjective Date of Service: 04/04/24 Reason For Visit: HEARING VOICES, UNABLE TO SLEEP PER EMS Interim History: feeling very sedated from the thorazine, asking for accelerated taper. will decrease thorazine to 100 QID today and risperidone to 2 TID today. titrate prolixin to 5 TID today. also increase effexor back toward prior dosage of 225 mg, to 150 mg as of tomorrow. per staff, no SI/HI. +AH. slept 8 hours. Mental Status Exam Mental Status Exam Narrative: Pt is alert and oriented; behavior is cooperative and calm; patient is not in distress; dressed in casual attire with unkempt hair; affect constricted; fair eye contact; Speech is decreased rate loudness and prosody; no PMA/PMR; thought process is organized and goal directed; Thought content is on tx; otherwise pertinent to relevant topics and without any delusional content, paranoid ideations or grandiosity; mood not assessed. denies SI/SIBI/HI. +AVH. Patients insight and judgment are fair Diagnostics Vital Signs (24Hr): Vital Signs - 24 hr 04/03/24 20:49 04/04/24 07:34 Temperature 98.6 F 96.1 F L Pulse Rate 80 75 Respiratory Rate 14 16 Blood Pressure 111/65 116/71 Pulse Oximetry 96 94 Oxygen Delivery Method Room Air Room Air BMI result Body Mass Index 47.5 Labs 04/01/24 08:19 04/01/24 08:19 Medications Medications Current Medications Chlorpromazine HCl (Chlorpromazine Hcl 100 Mg Tablet) 100 mg PO QID [facility] Last Admin: 04/04/24 13:24 Dose: 100 mg Clonazepam (Clonazepam 1 Mg Tablet) 1 mg PO TID [facility] Last Admin: 04/04/24 08:58 Dose: 1 mg Clonidine HCl (Clonidine Hcl 0.1 Mg Tablet) 0.1 mg PO TID PRN; Protocol PRN Reason: anxiety Last Admin: 04/01/24 23:40 Dose: 0.1 mg Fluphenazine HCl (Fluphenazine Hcl 5 Mg Tablet) 5 mg PO TID [facility] [place] Carbonate ([place] Carbonate 300 Mg Capsule) 600 mg PO TID [facility] Last Admin: 04/04/24 08:58 Dose: 600 mg Metformin HCl (Metformin Hcl 500 Mg Tablet) 500 mg PO BID [facility] Last Admin: 04/04/24 08:58 Dose: 500 mg Naltrexone HCl (Naltrexone Hcl 50 Mg Tablet) 50 mg PO BEDTIME [facility] Last Admin: 04/03/24 20:48 Dose: 50 mg Nicotine Polacrilex (Nicotine Polacrilex 2 Mg Gum) 4 mg BUCCAL Q2H PRN PRN Reason: nicotine cravings Last Admin: 04/04/24 13:24 Dose: 4 mg Omeprazole (Omeprazole 20 Mg Capsule.Dr) 20 mg PO DAILY@0630 [facility] Last Admin: 04/04/24 08:58 Dose: 20 mg Risperidone (Risperidone 2 Mg Tablet) 2 mg PO TID [facility] Topiramate (Topiramate 100 Mg Tablet) 100 mg PO BID [facility] Last Admin: 04/04/24 08:58 Dose: 100 mg Trazodone HCl (Trazodone Hcl 50 Mg Tablet) 150 mg PO BEDTIME PRN PRN Reason: Insomnia Last Admin: 04/03/24 20:54 Dose: 150 mg Venlafaxine HCl (Venlafaxine Hcl Er 150 Mg Cap.Er.24h) 150 mg PO DAILY [facility] Allergies Allergies Allergy/AdvReac Type Severity Reaction Status Date / Time quetiapine [From SEROQUEL] Allergy Unknown throat Verified 04/01/24 08:09 closes per patient Assessment & Plan Assessment & Plan (1) Schizoaffective disorder, bipolar type: Status: Acute Code(s): F25.0 - Schizoaffective disorder, bipolar type Plan 04/03: taper thorazine and risperidone. titrate prolixin. return lithium to usual dosing. continue klonopin 1 TID. continue topamax 100 BID for alcohol cravings. continue effexor 75 mg daily for now (had been on 225 mg daily). 04/04: decrease thorazine to 100 QID and risperidone to 2 TID. titrate prolixin to 5 TID. increase effexor back toward prior dosage of 225 mg, to 150 mg as of tomorrow. discuss antidepressants in bipolar disorder tomorrow. already on lithium. Reason for continued inpatient stay Substantial Risk for: harm to self, inability to function and rapid decompensation Time Spent With Patient Time: Total time managing care of this patient today __25__ minutes.
[2024-04-04] MEDS: fluPHENAZine HCl 5 MG TABLET PO ×2 (15:32→20:26)
[2024-04-04] MEDS: risperiDONE 2 MG TABLET PO ×2 (15:32→20:27)
[2024-04-04 19:20] VITALS: BP 115/58; PULSE 93; RESP 16; TEMP 36.6; O2SAT 97
[2024-04-04] MEDS: Naltrexone HCl 50 MG TABLET PO (20:25)
[2024-04-05 07:00] VITALS: BMI 46.7
[2024-04-05 07:35] VITALS: BP 107/62; PULSE 85; RESP 16; TEMP 37; O2SAT 96
[2024-04-05] MEDS: metFORMIN HCl 500 MG TABLET PO ×2 (08:43→20:33)
[2024-04-05] MEDS: Topiramate 100 MG TABLET PO ×2 (08:43→20:33)
[2024-04-05] MEDS: clonazePAM 1 MG TABLET PO ×3 (08:43→20:33)
[2024-04-05] MEDS: chlorproMAZINE HCl 100 MG TABLET PO (08:43)
[2024-04-05] MEDS: Omeprazole 20 MG CAPSULE.DR PO (08:43)
[2024-04-05] MEDS: Lithium Carbonate 300 MG CAPSULE 600 MG PO ×3 (08:44→20:34)
[2024-04-05] MEDS: fluPHENAZine HCl 5 MG TABLET PO ×3 (08:44→20:33)
[2024-04-05] MEDS: Nicotine Polacrilex 2 MG GUM 4 MG BUCCAL ×4 (08:44→20:38)
[2024-04-05] MEDS: risperiDONE 2 MG TABLET PO (08:44)
[2024-04-05] MEDS: Venlafaxine HCl ER 150 MG CAP.ER.24H PO (08:44)
--- NOTE | 2024-04-05 12:47 | HO.PSYCHPN ---
Subjective Subjective Date of Service: 04/05/24 Reason For Visit: HEARING VOICES, UNABLE TO SLEEP PER EMS Interim History: feeling sedated, wants to proceed with taper of 2 of three neuroleptics. per staff, dep 5 anx 3. +AVH. +meds. saw roger on the wall. slept 7 hours. Mental Status Exam Mental Status Exam Narrative: Pt is alert and oriented; behavior is cooperative and calm; patient is not in distress; dressed in casual attire with unkempt hair; affect constricted; fair eye contact; Speech is decreased rate loudness and prosody; no PMA/PMR; thought process is organized and goal directed; Thought content is on tx; otherwise pertinent to relevant topics and without any delusional content, paranoid ideations or grandiosity; mood not assessed. no SI/SIBI/HI/AVH expressed. Patients insight and judgment are fair Diagnostics Vital Signs (24Hr): Vital Signs - 24 hr 04/04/24 19:20 04/05/24 07:35 Temperature 97.9 F 98.6 F Pulse Rate 93 85 Respiratory Rate 16 16 Blood Pressure 115/58 L 107/62 Pulse Oximetry 97 96 Oxygen Delivery Method Room Air Room Air BMI result Body Mass Index 46.7 Labs 04/01/24 08:19 04/01/24 08:19 Medications Medications Current Medications Chlorpromazine HCl (Chlorpromazine Hcl 25 Mg Tablet) 50 mg PO QID [facility] Clonazepam (Clonazepam 1 Mg Tablet) 1 mg PO TID [facility] Last Admin: 04/05/24 08:43 Dose: 1 mg Clonidine HCl (Clonidine Hcl 0.1 Mg Tablet) 0.1 mg PO TID PRN; Protocol PRN Reason: anxiety Last Admin: 04/01/24 23:40 Dose: 0.1 mg Fluphenazine HCl (Fluphenazine Hcl 5 Mg Tablet) 5 mg PO TID [facility] Last Admin: 04/05/24 08:44 Dose: 5 mg [place] Carbonate ([place] Carbonate 300 Mg Capsule) 600 mg PO TID [facility] Last Admin: 04/05/24 08:44 Dose: 600 mg Metformin HCl (Metformin Hcl 500 Mg Tablet) 500 mg PO BID [facility] Last Admin: 04/05/24 08:43 Dose: 500 mg Naltrexone HCl (Naltrexone Hcl 50 Mg Tablet) 50 mg PO BEDTIME [facility] Last Admin: 04/04/24 20:25 Dose: 50 mg Nicotine Polacrilex (Nicotine Polacrilex 2 Mg Gum) 4 mg BUCCAL Q2H PRN PRN Reason: nicotine cravings Last Admin: 04/05/24 08:44 Dose: 4 mg Omeprazole (Omeprazole 20 Mg Capsule.Dr) 20 mg PO DAILY@0630 [facility] Last Admin: 04/05/24 08:43 Dose: 20 mg Risperidone (Risperidone 1 Mg Tablet) 1 mg PO TID [facility] Topiramate (Topiramate 100 Mg Tablet) 100 mg PO BID [facility] Last Admin: 04/05/24 08:43 Dose: 100 mg Trazodone HCl (Trazodone Hcl 50 Mg Tablet) 150 mg PO BEDTIME PRN PRN Reason: Insomnia Last Admin: 04/03/24 20:54 Dose: 150 mg Venlafaxine HCl (Venlafaxine Hcl Er 150 Mg Cap.Er.24h) 150 mg PO DAILY [facility] Last Admin: 04/05/24 08:44 Dose: 150 mg Allergies Allergies Allergy/AdvReac Type Severity Reaction Status Date / Time quetiapine [From SEROQUEL] Allergy Unknown throat Verified 04/01/24 08:09 closes per patient Assessment & Plan Assessment & Plan (1) Schizoaffective disorder, bipolar type: Status: Acute Code(s): F25.0 - Schizoaffective disorder, bipolar type Plan 04/03: taper thorazine and risperidone. titrate prolixin. return lithium to usual dosing. continue klonopin 1 TID. continue topamax 100 BID for alcohol cravings. continue effexor 75 mg daily for now (had been on 225 mg daily). 04/04: decrease thorazine to 100 QID and risperidone to 2 TID. titrate prolixin to 5 TID. increase effexor back toward prior dosage of 225 mg, to 150 mg as of tomorrow. discuss antidepressants in bipolar disorder tomorrow. already on lithium. 04/05: decrease thorazine to 50 QID, risperidone to 1 TID. continue fluphenazine 5 TID. Reason for continued inpatient stay Substantial Risk for: inability to function and rapid decompensation Time Spent With Patient Time: Total time managing care of this patient today __25__ minutes.
[2024-04-05] MEDS: chlorproMAZINE HCl 25 MG TABLET 50 MG PO ×3 (13:21→20:33)
[2024-04-05] MEDS: risperiDONE 1 MG TABLET PO ×2 (15:46→20:33)
[2024-04-05 19:45] VITALS: BP 122/70; PULSE 86; RESP 18; TEMP 36.8; O2SAT 95
[2024-04-05] MEDS: Naltrexone HCl 50 MG TABLET PO (20:33)
[2024-04-06 07:38] VITALS: BP 128/78; PULSE 70; RESP 14; TEMP 36.5; O2SAT 94
[2024-04-06] MEDS: clonazePAM 1 MG TABLET PO ×3 (09:54→20:32)
[2024-04-06] MEDS: Venlafaxine HCl ER 150 MG CAP.ER.24H PO (09:54)
[2024-04-06] MEDS: metFORMIN HCl 500 MG TABLET PO ×2 (09:54→20:31)
[2024-04-06] MEDS: chlorproMAZINE HCl 25 MG TABLET 50 MG PO (09:54)
[2024-04-06] MEDS: Lithium Carbonate 300 MG CAPSULE 600 MG PO ×3 (09:55→20:31)
[2024-04-06] MEDS: fluPHENAZine HCl 5 MG TABLET PO ×3 (09:55→20:31)
[2024-04-06] MEDS: risperiDONE 1 MG TABLET PO (09:55)
[2024-04-06] MEDS: Omeprazole 20 MG CAPSULE.DR PO (09:55)
[2024-04-06] MEDS: Topiramate 100 MG TABLET PO ×2 (09:55→20:31)
[2024-04-06] MEDS: Nicotine Polacrilex 2 MG GUM 4 MG BUCCAL (10:15)
[2024-04-06] MEDS: Nicotine 21 MG PATCH.TD24 TRANSDERMA (11:36)
--- NOTE | 2024-04-06 13:03 | HO.PSYCHPN ---
Subjective Subjective Date of Service: 04/06/24 Reason For Visit: HEARING VOICES, UNABLE TO SLEEP PER EMS Interim History: feeling improved. less tired today. asking to DC tuesday to spend day with his [facility] disease case manager. agreeable to DC risperidone and schedule all thorazine at HS. informed of plan to check lithium tuesday minal. per staff, c/o anxiety, denies depression. endorsing AVH. taking meds. isolative. slept well. Mental Status Exam Mental Status Exam Narrative: Pt is alert and oriented; behavior is cooperative and calm; patient is not in distress; dressed in casual attire with unkempt hair; affect full range; fair eye contact; Speech is nml rate loudness and prosody; no PMA/PMR; thought process is organized and goal directed; Thought content is on tx; otherwise pertinent to relevant topics and without any delusional content, paranoid ideations or grandiosity; mood improved. no SI/SIBI/HI/AVH expressed. Patients insight and judgment are fair Diagnostics Vital Signs (24Hr): Vital Signs - 24 hr 04/05/24 19:45 04/06/24 07:38 Temperature 98.2 F 97.7 F Pulse Rate 86 70 Respiratory Rate 18 14 Blood Pressure 122/70 128/78 Pulse Oximetry 95 94 Oxygen Delivery Method Room Air Room Air BMI result Body Mass Index 46.7 Labs 04/01/24 08:19 04/01/24 08:19 Medications Medications Current Medications Chlorpromazine HCl (Chlorpromazine Hcl 100 Mg Tablet) 200 mg PO BEDTIME [facility] Clonazepam (Clonazepam 1 Mg Tablet) 1 mg PO TID [facility] Last Admin: 04/06/24 09:54 Dose: 1 mg Clonidine HCl (Clonidine Hcl 0.1 Mg Tablet) 0.1 mg PO TID PRN; Protocol PRN Reason: anxiety Last Admin: 04/01/24 23:40 Dose: 0.1 mg Fluphenazine HCl (Fluphenazine Hcl 5 Mg Tablet) 5 mg PO TID [facility] Last Admin: 04/06/24 09:55 Dose: 5 mg [place] Carbonate ([place] Carbonate 300 Mg Capsule) 600 mg PO TID [facility] Last Admin: 04/06/24 09:55 Dose: 600 mg Metformin HCl (Metformin Hcl 500 Mg Tablet) 500 mg PO BID [facility] Last Admin: 04/06/24 09:54 Dose: 500 mg Naltrexone HCl (Naltrexone Hcl 50 Mg Tablet) 50 mg PO BEDTIME [facility] Last Admin: 04/05/24 20:33 Dose: 50 mg Nicotine (Nicotine 21 Mg Patch.Td24) 21 mg TRANSDERMA DAILY [facility] Last Admin: 04/06/24 11:36 Dose: 21 mg Nicotine Polacrilex (Nicotine Polacrilex 2 Mg Gum) 2 mg BUCCAL Q2H PRN PRN Reason: nicotine cravings Omeprazole (Omeprazole 20 Mg Capsule.Dr) 20 mg PO DAILY@0630 [facility] Last Admin: 04/06/24 09:55 Dose: 20 mg Topiramate (Topiramate 100 Mg Tablet) 100 mg PO BID [facility] Last Admin: 04/06/24 09:55 Dose: 100 mg Trazodone HCl (Trazodone Hcl 50 Mg Tablet) 150 mg PO BEDTIME PRN PRN Reason: Insomnia Last Admin: 04/03/24 20:54 Dose: 150 mg Venlafaxine HCl (Venlafaxine Hcl Er 150 Mg Cap.Er.24h) 150 mg PO DAILY [facility] Last Admin: 04/06/24 09:54 Dose: 150 mg Allergies Allergies Allergy/AdvReac Type Severity Reaction Status Date / Time quetiapine [From SEROQUEL] Allergy Unknown throat Verified 04/01/24 08:09 closes per patient Assessment & Plan Assessment & Plan (1) Schizoaffective disorder, bipolar type: Status: Acute Code(s): F25.0 - Schizoaffective disorder, bipolar type Plan 04/03: taper thorazine and risperidone. titrate prolixin. return lithium to usual dosing. continue klonopin 1 TID. continue topamax 100 BID for alcohol cravings. continue effexor 75 mg daily for now (had been on 225 mg daily). 04/04: decrease thorazine to 100 QID and risperidone to 2 TID. titrate prolixin to 5 TID. increase effexor back toward prior dosage of 225 mg, to 150 mg as of tomorrow. discuss antidepressants in bipolar disorder tomorrow. already on lithium. 04/05: decrease thorazine to 50 QID, risperidone to 1 TID. continue fluphenazine 5 TID. 04/06: change thorazine 50 QID to 200 QHS per pt request. DC risperidone and continue prolixin 5 TID. check lithium level tuesday. planning for tuesday discharge. improved. Reason for continued inpatient stay Substantial Risk for: inability to function and rapid decompensation Time Spent With Patient Time: Total time managing care of this patient today __25__ minutes.
[2024-04-06] MEDS: Nicotine Polacrilex 2 MG GUM BUCCAL ×2 (13:32→20:32)
[2024-04-06 19:55] VITALS: BP 132/74; PULSE 94; RESP 18; TEMP 36.8; O2SAT 97
[2024-04-06] MEDS: traZODone HCL 50 MG TABLET 150 MG PO (20:30)
[2024-04-06] MEDS: chlorproMAZINE HCl 100 MG TABLET 200 MG PO (20:31)
[2024-04-06] MEDS: Naltrexone HCl 50 MG TABLET PO (20:32)
[2024-04-07 07:20] VITALS: BP 106/58; PULSE 67; RESP 14; TEMP 36.4; O2SAT 95
[2024-04-07] MEDS: metFORMIN HCl 500 MG TABLET PO ×2 (08:34→20:30)
[2024-04-07] MEDS: Omeprazole 20 MG CAPSULE.DR PO (08:34)
[2024-04-07] MEDS: Venlafaxine HCl ER 150 MG CAP.ER.24H PO (08:34)
[2024-04-07] MEDS: Topiramate 100 MG TABLET PO ×2 (08:34→20:30)
[2024-04-07] MEDS: clonazePAM 1 MG TABLET PO ×3 (08:34→20:31)
[2024-04-07] MEDS: Lithium Carbonate 300 MG CAPSULE 600 MG PO ×3 (08:34→20:30)
[2024-04-07] MEDS: fluPHENAZine HCl 5 MG TABLET PO ×3 (08:35→20:29)
[2024-04-07] MEDS: Nicotine 21 MG PATCH.TD24 TRANSDERMA (08:35)
[2024-04-07] MEDS: Nicotine Polacrilex 2 MG GUM BUCCAL ×2 (08:39→16:13)
--- NOTE | 2024-04-07 12:30 | HO.PSYCHPN ---
Subjective Subjective Date of Service: 04/07/24 Reason For Visit: HEARING VOICES, UNABLE TO SLEEP PER EMS Subjective Notes: Conditional Voluntary Interim History: Patient was seen and discussed in rounds today. Records and plans were reviewed. He states that he is doing very well and is happy with his current medication regimen. Questions about Prolixin discussed. Eating and sleeping adequately. He is feeling more stable mentally. He is looking forward to discharge next week. Eating and sleeping adequately. No changes were made today Review of Systems Review of Systems Yes all other systems are reviewed and are negative Mental Status Exam Mental Status Exam Narrative: In today's visit he is alert, oriented and pleasant. Normal speech. Moderate eye contact. Appropriate affect. No signs of psychosis. No SI. Cognitively is intact. Judgment is intact Diagnostics Vital Signs (24Hr): Vital Signs - 24 hr 04/06/24 19:55 04/07/24 07:20 Temperature 98.3 F 97.6 F Pulse Rate 94 67 Respiratory Rate 18 14 Blood Pressure 132/74 106/58 L Pulse Oximetry 97 95 Oxygen Delivery Method Room Air Room Air BMI result Body Mass Index 46.7 Labs 04/01/24 08:19 04/01/24 08:19 Medications Medications Current Medications Chlorpromazine HCl (Chlorpromazine Hcl 100 Mg Tablet) 200 mg PO BEDTIME [facility] Last Admin: 04/06/24 20:31 Dose: 200 mg Clonazepam (Clonazepam 1 Mg Tablet) 1 mg PO TID [facility] Last Admin: 04/07/24 08:34 Dose: 1 mg Clonidine HCl (Clonidine Hcl 0.1 Mg Tablet) 0.1 mg PO TID PRN; Protocol PRN Reason: anxiety Last Admin: 04/01/24 23:40 Dose: 0.1 mg Fluphenazine HCl (Fluphenazine Hcl 5 Mg Tablet) 5 mg PO TID [facility] Last Admin: 04/07/24 08:35 Dose: 5 mg [place] Carbonate ([place] Carbonate 300 Mg Capsule) 600 mg PO TID [facility] Last Admin: 04/07/24 08:34 Dose: 600 mg Metformin HCl (Metformin Hcl 500 Mg Tablet) 500 mg PO BID [facility] Last Admin: 04/07/24 08:34 Dose: 500 mg Naltrexone HCl (Naltrexone Hcl 50 Mg Tablet) 50 mg PO BEDTIME [facility] Last Admin: 04/06/24 20:32 Dose: 50 mg Nicotine (Nicotine 21 Mg Patch.Td24) 21 mg TRANSDERMA DAILY [facility] Last Admin: 04/07/24 08:35 Dose: 21 mg Nicotine Polacrilex (Nicotine Polacrilex 2 Mg Gum) 2 mg BUCCAL Q2H PRN PRN Reason: nicotine cravings Last Admin: 04/07/24 08:39 Dose: 2 mg Omeprazole (Omeprazole 20 Mg Capsule.Dr) 20 mg PO DAILY@0630 [facility] Last Admin: 04/07/24 08:34 Dose: 20 mg Topiramate (Topiramate 100 Mg Tablet) 100 mg PO BID [facility] Last Admin: 04/07/24 08:34 Dose: 100 mg Trazodone HCl (Trazodone Hcl 50 Mg Tablet) 150 mg PO BEDTIME PRN PRN Reason: Insomnia Last Admin: 04/06/24 20:30 Dose: 150 mg Venlafaxine HCl (Venlafaxine Hcl Er 150 Mg Cap.Er.24h) 150 mg PO DAILY [facility] Last Admin: 04/07/24 08:34 Dose: 150 mg Allergies Allergies Allergy/AdvReac Type Severity Reaction Status Date / Time quetiapine [From SEROQUEL] Allergy Unknown throat Verified 04/01/24 08:09 closes per patient Assessment & Plan Assessment & Plan (1) Schizoaffective disorder, bipolar type: Status: Acute Code(s): F25.0 - Schizoaffective disorder, bipolar type Plan 04/03: taper thorazine and risperidone. titrate prolixin. return lithium to usual dosing. continue klonopin 1 TID. continue topamax 100 BID for alcohol cravings. continue effexor 75 mg daily for now (had been on 225 mg daily). 04/04: decrease thorazine to 100 QID and risperidone to 2 TID. titrate prolixin to 5 TID. increase effexor back toward prior dosage of 225 mg, to 150 mg as of tomorrow. discuss antidepressants in bipolar disorder tomorrow. already on lithium. 04/05: decrease thorazine to 50 QID, risperidone to 1 TID. continue fluphenazine 5 TID. 04/06: change thorazine 50 QID to 200 QHS per pt request. DC risperidone and continue prolixin 5 TID. check lithium level tuesday. planning for tuesday discharge. improved. 04/07: Continue current treatment and plan Reason for continued inpatient stay Substantial Risk for: med/psych decompensation Time Spent With Patient Time: Total time managing care of this patient today ____ minutes.
[2024-04-07 20:00] VITALS: BP 104/55; PULSE 77; RESP 18; TEMP 36.9; O2SAT 94
[2024-04-07] MEDS: Naltrexone HCl 50 MG TABLET PO (20:30)
[2024-04-07] MEDS: traZODone HCL 50 MG TABLET 150 MG PO (20:31)
[2024-04-07] MEDS: chlorproMAZINE HCl 100 MG TABLET 200 MG PO (20:31)
[2024-04-08 07:34] VITALS: BP 127/80; PULSE 79; RESP 16; TEMP 37.1; O2SAT 97
[2024-04-08 08:01] LABS: Estimated Glomerular Filt Rate > 60
--- NOTE | 2024-04-08 08:17 | HO.PSYCHPN ---
Subjective Subjective Date of Service: 04/08/24 Reason For Visit: HEARING VOICES, UNABLE TO SLEEP PER EMS Subjective Notes: Conditional Voluntary Interim History: Patient was seen and discussed in rounds today. Records and plans were reviewed. He continues to be stable and is doing better. He is mostly to himself but doing things. No anxiety or depression. Eating and sleeping adequately. No symptoms of psychosis. No SI. Planning for an early discharge this week. No changes were made today Review of Systems Review of Systems Yes all other systems are reviewed and are negative Mental Status Exam Mental Status Exam Narrative: In today's visit he is alert, oriented and pleasant. Normal speech. Moderate eye contact. Appropriate affect. No signs of psychosis. No SI. Cognitively is intact. Judgment is intact Diagnostics Vital Signs (24Hr): Vital Signs - 24 hr 04/07/24 20:00 04/08/24 07:34 Temperature 98.5 F 98.8 F Pulse Rate 77 79 Respiratory Rate 18 16 Blood Pressure 104/55 L 127/80 Pulse Oximetry 94 97 Oxygen Delivery Method Room Air Room Air BMI result Body Mass Index 46.7 Labs 04/01/24 08:19 04/08/24 07:41 Labs: Laboratory Results - last 48 hr 04/08/24 07:41 Creatinine 0.81 Estim Creat Clear Calc 183.0 Estimated GFR > 60 Medications Medications Current Medications Chlorpromazine HCl (Chlorpromazine Hcl 100 Mg Tablet) 200 mg PO BEDTIME [facility] Last Admin: 04/07/24 20:31 Dose: 200 mg Clonazepam (Clonazepam 1 Mg Tablet) 1 mg PO TID [facility] Last Admin: 04/07/24 20:31 Dose: 1 mg Clonidine HCl (Clonidine Hcl 0.1 Mg Tablet) 0.1 mg PO TID PRN; Protocol PRN Reason: anxiety Last Admin: 04/01/24 23:40 Dose: 0.1 mg Fluphenazine HCl (Fluphenazine Hcl 5 Mg Tablet) 5 mg PO TID [facility] Last Admin: 04/07/24 20:29 Dose: 5 mg [place] Carbonate ([place] Carbonate 300 Mg Capsule) 600 mg PO TID [facility] Last Admin: 04/07/24 20:30 Dose: 600 mg Metformin HCl (Metformin Hcl 500 Mg Tablet) 500 mg PO BID [facility] Last Admin: 04/07/24 20:30 Dose: 500 mg Naltrexone HCl (Naltrexone Hcl 50 Mg Tablet) 50 mg PO BEDTIME [facility] Last Admin: 04/07/24 20:30 Dose: 50 mg Nicotine (Nicotine 21 Mg Patch.Td24) 21 mg TRANSDERMA DAILY [facility] Last Admin: 04/07/24 08:35 Dose: 21 mg Nicotine Polacrilex (Nicotine Polacrilex 2 Mg Gum) 2 mg BUCCAL Q2H PRN PRN Reason: nicotine cravings Last Admin: 04/07/24 16:13 Dose: 2 mg Omeprazole (Omeprazole 20 Mg Capsule.Dr) 20 mg PO DAILY@0630 [facility] Last Admin: 04/07/24 08:34 Dose: 20 mg Topiramate (Topiramate 100 Mg Tablet) 100 mg PO BID [facility] Last Admin: 04/07/24 20:30 Dose: 100 mg Trazodone HCl (Trazodone Hcl 50 Mg Tablet) 150 mg PO BEDTIME PRN PRN Reason: Insomnia Last Admin: 04/07/24 20:31 Dose: 150 mg Venlafaxine HCl (Venlafaxine Hcl Er 150 Mg Cap.Er.24h) 150 mg PO DAILY [facility] Last Admin: 04/07/24 08:34 Dose: 150 mg Allergies Allergies Allergy/AdvReac Type Severity Reaction Status Date / Time quetiapine [From SEROQUEL] Allergy Unknown throat Verified 04/01/24 08:09 closes per patient Assessment & Plan Assessment & Plan (1) Schizoaffective disorder, bipolar type: Status: Acute Code(s): F25.0 - Schizoaffective disorder, bipolar type Plan 04/03: taper thorazine and risperidone. titrate prolixin. return lithium to usual dosing. continue klonopin 1 TID. continue topamax 100 BID for alcohol cravings. continue effexor 75 mg daily for now (had been on 225 mg daily). 04/04: decrease thorazine to 100 QID and risperidone to 2 TID. titrate prolixin to 5 TID. increase effexor back toward prior dosage of 225 mg, to 150 mg as of tomorrow. discuss antidepressants in bipolar disorder tomorrow. already on lithium. 04/05: decrease thorazine to 50 QID, risperidone to 1 TID. continue fluphenazine 5 TID. 04/06: change thorazine 50 QID to 200 QHS per pt request. DC risperidone and continue prolixin 5 TID. check lithium level brynn minal. planning for tuesday discharge. improved. 04/07: Continue current treatment and plan 04/08: Continue current regimen and plans Reason for continued inpatient stay Substantial Risk for: rapid decompensation Time Spent With Patient Time: Total time managing care of this patient today ____ minutes.
[2024-04-08] MEDS: Venlafaxine HCl ER 150 MG CAP.ER.24H PO (08:28)
[2024-04-08] MEDS: clonazePAM 1 MG TABLET PO ×3 (08:28→20:39)
[2024-04-08] MEDS: Lithium Carbonate 300 MG CAPSULE 600 MG PO ×3 (08:28→20:40)
[2024-04-08] MEDS: Topiramate 100 MG TABLET PO ×2 (08:28→20:39)
[2024-04-08] MEDS: metFORMIN HCl 500 MG TABLET PO ×2 (08:28→20:39)
[2024-04-08] MEDS: Nicotine 21 MG PATCH.TD24 TRANSDERMA (08:28)
[2024-04-08] MEDS: fluPHENAZine HCl 5 MG TABLET PO ×3 (08:28→20:39)
[2024-04-08] MEDS: Nicotine Polacrilex 2 MG GUM BUCCAL ×4 (08:29→14:31)
[2024-04-08] MEDS: Omeprazole 20 MG CAPSULE.DR PO (08:30)
[2024-04-08 20:25] VITALS: BP 136/88; PULSE 106; RESP 20; TEMP 36.3; O2SAT 97
[2024-04-08 20:32] LABS: Basophils Absolute Auto 0.1 X10*3/uL (0.0-0.2); Eosinophils Absolute Auto 0.2 X10*3/uL (0.0-0.4); Eosinophils Percent Auto 2.4 % (0-4); Hematocrit 46.6 % (42.0-52.0); Hemoglobin 15.4 g/dl (14.0-18.0); Imm Gran Abs Auto 0.08 X10*3/uL (0.00-0.03); Imm Gran Pct Auto 1.3 % (0.0-0.4); Lymphocytes Absolute Auto 1.2 X10*3/uL (1.2-4.9); Lymphocytes Percent Auto 19.6 % (20-40); MANUAL DIFF FLAG NO; Mean Corpuscular Hemoglobin 30.4 pg (27.0-33.0); Mean Corpuscular Volume 91.9 fL (80.0-98.0); Mean Platelet Volume 9.9 fL (9.4-12.4); Monocytes Absolute Auto 0.9 X10*3/uL (0.1-1.2); Neutrophils Absolute Auto 3.8 x10*3/uL (2.0-8.3); Neutrophils Percent Auto 61.7 % (45-73); Platelet Count 189 X10*3/uL (160-400); Red Blood Count 5.07 X10*6/uL (4.60-5.80); Red Cell Distribution Width 12.6 % (11.0-16.0); White Blood Count 6.2 X10*3/uL (4.8-10.8)
[2024-04-08] MEDS: Naltrexone HCl 50 MG TABLET PO (20:40)
[2024-04-08 20:41] LABS: Lithium 0.63 mmol/L (0.60-1.20)
[2024-04-08] MEDS: chlorproMAZINE HCl 100 MG TABLET 200 MG PO (20:41)
[2024-04-08 20:45] LABS: Anion Gap 15 (12-20); Blood Urea Nitrogen 17 mg/dL (9-16); Calcium 9.9 mg/dL (8.4-10.2); Carbon Dioxide 25 mmol/L (22-29); Chloride 105 mmol/L (96-108); Creatinine Clr Calc Pharmacy 174.4; Estimated Glomerular Filt Rate > 60; Glucose Random 92 mg/dL (60-115); Potassium 4.6 mmol/L (3.3-5.1); Sodium 140 mmol/L (135-145)
[2024-04-09] MEDS: Nicotine Polacrilex 2 MG GUM BUCCAL ×2 (06:17→09:50)
[2024-04-09] MEDS: Omeprazole 20 MG CAPSULE.DR PO (06:17)
[2024-04-09 07:41] VITALS: BP 127/66; PULSE 84; RESP 14; TEMP 36.8; O2SAT 95
[2024-04-09] MEDS: metFORMIN HCl 500 MG TABLET PO (08:50)
[2024-04-09] MEDS: fluPHENAZine HCl 5 MG TABLET PO (08:50)
[2024-04-09] MEDS: clonazePAM 1 MG TABLET PO (08:50)
[2024-04-09] MEDS: Venlafaxine HCl ER 150 MG CAP.ER.24H PO (08:50)
[2024-04-09] MEDS: Topiramate 100 MG TABLET PO (08:50)
[2024-04-09] MEDS: Lithium Carbonate 300 MG CAPSULE 600 MG PO (08:50)
[2024-04-09] MEDS: Nicotine 21 MG PATCH.TD24 TRANSDERMA (08:52)
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
== END 2024-04-09 11:34 | disposition home or self-care (01) | DRG 885 ==
LOC: HO.ED 10:59 → HO.PADLT16 04-02 13:21
PROVIDERS: Physician Assistant; Admitting Provider Psychiatry & Neurology Psychiatry; Emergency Provider Student in an Organized Health Care Education/Training Program; PCP Internal Medicine; Visit Provider Psychiatry & Neurology Psychiatry
DX: F25.0 Schizoaffective disorder, bipolar type (principal); Z20.822 Contact with and (suspected) exposure to COVID-19; Z87.891 Personal history of nicotine dependence; Z79.84 Long term (current) use of oral hypoglycemic drugs; Z79.899 Other long term (current) drug therapy
CPT/HCPCS: 36415; 80048; 80053; 80178; 80307; 81003; 82565; 84443; 85025; 87635; 93005; 99285; S9485

== ENCOUNTER → 2024-04-02 08:23 | Outpatient (BNV) | payer OTHER, SELFPAY | PROVIDERS: Emergency Provider Student in an Organized Health Care Education/Training Program; PCP Internal Medicine; Visit Provider Internal Medicine Cardiovascular Disease | DX: R94.31 Abnormal electrocardiogram [ECG] [EKG] (principal) | CPT/HCPCS: 93010 ==

== ENCOUNTER → 2024-04-02 13:10 | Outpatient (BNV) | payer OTHER, SELFPAY | PROVIDERS: Admitting Provider Psychiatry & Neurology Psychiatry; Emergency Provider Student in an Organized Health Care Education/Training Program; PCP Internal Medicine; Visit Provider Psychiatry & Neurology Psychiatry | DX: F25.0 Schizoaffective disorder, bipolar type (principal) | CPT/HCPCS: 90792; 99231; 99232; 99239 ==

== ENCOUNTER 2024-04-20 10:01 | Outpatient (REF) | payer OTHER, SELFPAY ==
[2024-04-23 10:48] LABS: Amphetamine Screen Urine Not Detected (Not Detect); Barbiturates, Urine Not Detected (Not Detect); Benzodiazepines Screen Urine Not Detected (Not Detect); Buprenorphine Scr Not Detected (Not Detect); Cannabinoid Screen Urine Not Detected (Not Detect); Cocaine Screen Urine Not Detected (Not Detect); Fentanyl, urine Not Detected (Not Detect); Methadone Screen, Urine Not Detected (Not Detect); Opiate Screen Urine Not Detected (Not Detect); Oxycodone Screen Urine Not Detected (Not Detect); Phencyclidine Screen Urine Not Detected (Not Detect)
== END 2024-04-20 10:02 | disposition home or self-care (01) ==
LOC: HO.LNP 10:01
PROVIDERS: Visit Provider Psychiatry & Neurology Psychiatry
DX: F12.10 Cannabis abuse, uncomplicated (principal); F10.20 Alcohol dependence, uncomplicated
CPT/HCPCS: 80307

== ENCOUNTER 2024-04-23 09:15 | Outpatient (RCR) | payer OTHER, SELFPAY ==
[2024-04-20 09:31] VITALS: BMI 45.9
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
[2024-04-20 10:52] VITALS: BP 120/86; PULSE 96; TEMP 36.9
--- NOTE | 2024-04-23 10:05 | HO.PHP ---
Addendum entered by Tianna Mas 04/23/24 10:27: [facility] staff member explored if Ori has experienced any visual or auditory hallucinations since starting the program. Ori voiced none occurring since program. PHP staff member assessed if he has been taking his medication regularly. Ori mentioned that he is. Original Note: PHP staff member met with Ori due to him becoming triggered from processing what brought him to the program. Ori disclosed that he was informed to not disclose triggering information in the group but felt it was relevant to what was occurring for him. Ori was processing his inpatient stay and then talked about a state stay in 2019. PHP staff member acknowledged that this appears to be a traumatic event that had occurred for him and provided him with communication prompts of how to approach the topic in group without providing details. Ori appeared receptive. [facility] staff member encouraged Ori to further process with his therapist how this is still affecting him currently. PHP staff suggested that DBT may be beneficial for him. Herbie was in agreement. Ori was able to regulate and return to the group setting.
--- NOTE | 2024-04-23 11:39 | PC.NURSE ---
I called [facility] to speak with Ori's VNA to confirm his medications. I spoke to VNStanley Silverman. Confirmed with Andra and Herbie that he stopped taking the Chlorpromazine, Fluphenazine, Trazodone, [place] (as he is no longer sexually active, he is taking [place] 1200 mg at HS, taking Clonazepam 2 mg BID, taking Olanzapine [address] Junior is aware.
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
--- NOTE | 2024-04-24 08:35 | PC.NURSE ---
Herbie called [facility] staff Yanna this morning and stated he was not coming to the program today as he fell and hurt his hip. Staff recommended he go to his doctors to f/u however Herbie did not feel he needed to f/u at this time. He told staff he was going to rest and stay off of it and ice it or apply heat to it. I called Ori to f/u. I left him a message to call me back.
--- NOTE | 2024-04-24 10:07 | HO.PHP ---
PHP Admin, Yanna, informed the PHP team that Ori will not be attending program today due to falling and hurting his hip. Ori reported no safety concerns and will be here tomorrow.
--- NOTE | 2024-04-24 13:07 | PC.NURSE ---
I called Ori again and spoke to him to f/u with his reported fall this morning at home. He stated he tripped on the stairs and fell on his hip. He stated his hip is feeling better and plans on coming to the program tomorrow. He stated he was doing ok mentally, denied any safety concerns, no SI. Reports he is feeling restless on Haldol and plans on seeing his prescriber on Tuesday as his prescriber wanted to see him before he goes on vacation. Ori stated he wants to talk to his presciber about increasing Zyprexa to [address] Junior is aware.
--- NOTE | 2024-04-25 08:10 | PC.NURSE ---
Ori called the program and spoke to [facility] staff Yanna this morning stating he was not coming in again today because of his hip pain. He was encouraged to go to urgent care to have it looked at and he told her he was going to go today. No safety concerns and he stated he will be here tomorrow. [facility] staff aware.
--- NOTE | 2024-04-25 09:12 | PC.NURSE ---
Ori called the program stating that he was going to Urgent Care today to have his hip looked at and he will be here tomorrow. He also stated he is feeling restless on the Haldol and that he did not have any more Cogentin as his VNA got rid of it as Ori stopped taking it as he felt he did not need it anymore. Unsure if pharmacy will fill the prescription as he just filled it recently. Dr Junior is aware.
--- NOTE | 2024-04-26 09:54 | PC.NURSE ---
Ori called out again today. He spoke to [facility] staff Kya about his attendance and calling out again today. He told staff he had a fever today and that is why he is unable to come to the program. He also told staff went to Urgent Care Yesterday regarding his hip and they told him to rest it. Ori called the program again today and asked to speack to me. He is asking to talk to Dr. Junior about increasing his Zyprexa dose to 60 mg daily. He did not want to increase it until he talked to the doctor. He also stated to me yesterday that he has an appointment with his outpatient prescriber on Tuesday to discuss increasing Zyprexa dose to 60 mg. He stated that he has not taken the Haldol that Dr Junior prescribed however the other day he stated he did take the Haldol and felt restless. He asked for a prescription for Cogentin yesterday as he stated his VNA got rid of this prescription as he was not taking it (Dr Junior is aware). I asked him if he was experiencing AH and he stated he was (at baseline Herbie does experience AH).He did not elaborate regarding the AH. I asked him if he needed to go to the hospital and he stated he did not feel he needed to go to the hospital. I told him I would convey the information to Dr Junior when she came in.
--- NOTE | 2024-04-26 10:02 | HO.PHP ---
Pt called [facility] this morning around 9 am to tell staff he will not be in to programming. Reports he woke up with a fever, states he went to urgent care yesterday for his hip pain and was told to stay off his feet and rest. Pt expressed awareness regarding [facility] policy, feels he will not be able to return to [facility] in his current condition. Pt states he is safe, states he feels he needs to rest and recover. Pt will be discharged today from programming and will be contacted by [facility] staff to followup.
--- NOTE | 2024-04-26 23:23 | PM.EVENT ---
Event Note Date of Service: 04/27/24 Event Note: Patient discharged administratively for too many missed days. I called to check in on patient, left a VM message that refill for Cogentin was sent and otherwise will defer further medication management to his outpatient provider whom he has an appointment with on Tuesday. Time Spent With Patient Time: Total time managing care of this patient today _5___ minutes.
== END 2024-04-26 23:59 | disposition home or self-care (01) ==
LOC: HO.PHPA 09:15
PROVIDERS: Visit Provider Psychiatry & Neurology Psychiatry
DX: F25.0 Schizoaffective disorder, bipolar type (principal); F41.3 Other mixed anxiety disorders; F10.20 Alcohol dependence, uncomplicated; F12.10 Cannabis abuse, uncomplicated
CPT/HCPCS: 90791; 90853

== ENCOUNTER → 2024-04-23 09:15 | Outpatient (BNV) | payer OTHER, SELFPAY | PROVIDERS: Visit Provider Psychiatry & Neurology Psychiatry | DX: F25.0 Schizoaffective disorder, bipolar type (principal) | CPT/HCPCS: 90792; 99499 ==

== ENCOUNTER → 2024-07-20 08:45 | Outpatient (BNV) | payer OTHER, SELFPAY | PROVIDERS: Visit Provider Psychiatry & Neurology Psychiatry | DX: F25.0 Schizoaffective disorder, bipolar type (principal); F41.3 Other mixed anxiety disorders; F12.10 Cannabis abuse, uncomplicated; F10.21 Alcohol dependence, in remission; Z86.59 Personal history of other mental and behavioral disorders | CPT/HCPCS: 90792 ==

== ENCOUNTER 2024-07-20 13:50 | Outpatient (REF) | payer OTHER, SELFPAY ==
[2024-07-20 14:16] LABS: Amphetamine Screen Urine Not Detected (Not Detect); Barbiturates, Urine Not Detected (Not Detect); Benzodiazepines Screen Urine Not Detected (Not Detect); Buprenorphine Scr Not Detected (Not Detect); Cannabinoid Screen Urine POSITIVE (Not Detect); Cocaine Screen Urine Not Detected (Not Detect); Fentanyl, urine Not Detected (Not Detect); Methadone Screen, Urine Not Detected (Not Detect); Opiate Screen Urine Not Detected (Not Detect); Oxycodone Screen Urine Not Detected (Not Detect); Phencyclidine Screen Urine Not Detected (Not Detect)
== END 2024-07-20 13:51 | disposition home or self-care (01) ==
LOC: HO.LNP 13:50
PROVIDERS: Visit Provider Psychiatry & Neurology Psychiatry
DX: F25.0 Schizoaffective disorder, bipolar type (principal); F12.10 Cannabis abuse, uncomplicated; F10.20 Alcohol dependence, uncomplicated
CPT/HCPCS: 80307

== ENCOUNTER 2024-07-30 08:45 | Outpatient (RCR) | payer OTHER, SELFPAY ==
[2024-07-20 10:42] VITALS: BP 138/88; PULSE 80; TEMP 36.6
[2024-07-20 10:46] VITALS: BMI 49.8
--- NOTE | 2024-07-20 11:45 | PC.ADMIT ---
Patient is a 34 year old male who self referred to [facility] wanting stabilization of his mood and support with substance use. Patient has a diagnosis of Schizoaffective D/O Bipolar type and ADHD. Patient reports he has been drinking until he gets intoxicated a few times a week and reports he last drank one month ago. He has a history of using many different substances including Methamphetamines, Ketamine, LSD, and while he was manic in 2022 he tried IV cocaine and heroin x2 along with fentanyl. At that time he accidentally overdosed and needed to be narcaned 4 times. He also uses marijuana 2 times a month. Patient reports experiencing Hypo-manic symptoms last week. Patient described the symptoms stating, no sleep euphoric feeling I was very productive and that ended. I did a lot of vacuuming . Patient is alert and oriented x4. Calm and cooperative. His thoughts are clear and logical. He reports AH of hearing a radio in his bed and VH describing this like looking at a Kaleidoscope int he dark. He did not appear to be responding to internal stimuli. He presented with depressed mood and anxious affect. He denied SI, no HI. He was given a copy of his safety plan if needed. Medications reconciled with patient and patient's pharmacy. He reports he is not taking the Zyprexa 20 mg TID as he is taking it once daily d/t side effects of weight gain. He does not have a VNA anymore as he feels he does not need one. He does know the medications he is taking, doses, and when to take them.
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
--- NOTE | 2024-07-24 07:58 | HO.PHP ---
Ori left a VM on the admin's phone stating that he won't be in attendance to program due to a family matter and will be here tomorrow. PHP staff member contacted Ori to assess any safety concerns and is awaiting a call back.
--- NOTE | 2024-07-25 09:52 | HO.PHP ---
[facility] staff member reached out to Ori due to him not showing for the community meeting. Ori disclosed that he will not be in attendance to program today because yesterday he received the wegovy injection, which caused him to be physically sick where he was vomiting all night. [facility] staff member was receptive and assessed any safety concerns. Ori reported no concerns around SI, plan or intent and stated he was safe. Ori will be in attendance to program tomorrow. [facility] staff member informed Ori that he cannot miss any more additional days. Ori was in agreement.
--- NOTE | 2024-07-26 10:03 | HO.PHP ---
Ori contacted the program to state that he is going to need to do the program at another time because he won't be able to attend program today. Ori disclosed that he has a med provider appointment today, has to get lab work, and go to [employer] to renew his subsidized apartment. Ori discharged himself AMA. Please review discharge paperwork for additional information.
== END 2024-07-30 23:59 | disposition home or self-care (01) ==
LOC: HO.PHPA 08:45
PROVIDERS: Visit Provider Psychiatry & Neurology Psychiatry
DX: F25.0 Schizoaffective disorder, bipolar type (principal); F41.3 Other mixed anxiety disorders; F12.10 Cannabis abuse, uncomplicated; F10.21 Alcohol dependence, in remission; Z86.59 Personal history of other mental and behavioral disorders; Z79.899 Other long term (current) drug therapy
CPT/HCPCS: 90791; 90853